=== PATIENT | female | born 1930 | race Caucasian/White ===

== ENCOUNTER 2016-05-22 09:36 | Emergency (ER) | payer MEDICARE, OTHER ==
[2016-05-22] MEDS ORDERED: Insulin Aspart 100 Units/ML 3 ML Pen SUBCUT ONE (10:21)
[2016-05-22] MEDS ORDERED: Insulin Detemir 100 Units/ML 3 ML Pen SUBCUT ONE (10:25)
[2016-05-22 10:55] VITALS: BP 173/72
--- NOTE | 2016-05-24 14:47 | CR ---
INDICATION: Suggestion of left CVA, [id number] activity. CHEST: A single AP view of the chest was obtained 05/22/2016. No comparisons were available. The heart is enlarged. The aorta is tortuous with calcification in the arch. Overlying EKG leads are noted. Findings suggesting COPD are noted. A definite active infiltrate or effusion was not identified. IMPRESSION: 1. No acute process. 2. COPD. 3. ASHD with cardiomegaly. MTDD
--- NOTE | 2016-05-25 15:29 | ER ---
DATE SEEN: 05/22/2016 CHIEF COMPLAINT: Weakness 0300 hours, left hand and right hand tremor, more notable on left hand at that time. At 0700 hours, unable to get out of bed, needed assistance, had to be on all fours, and eventually she walked to the bathroom. Presently, nurse called me stat, because she had new onset of tremor to right upper extremity, right hand. The patient has insulin-dependent diabetes who forgot to take her 40 units of Lantus last night. The patient normally takes 12 units of Humalog in the evening, but not during noon or a.m. PAST MEDICAL HISTORY: Stroke, myocardial infarction, paresis, weakness, numbness. CURRENT MEDICATIONS: 1. Aricept. 2. Aspirin. 3. Metoprolol succinate 25 mg daily. 4. Magnesium. 5. Lisinopril 40 mg daily. 6. Hydrochlorothiazide 25 mg daily. 7. Hydralazine 25 mg b.i.d. 8. Dorzolamide/timolol (Cosopt) 2%/0.5% ophthalmic 1 drop to each eye. 9. Simvastatin. 10.Amlodipine 10 mg daily. OTHER SIGNIFICANT HISTORY: The patient's glucose yesterday morning 0730 hours of 390. At 2300 hours yesterday 504. She forgot to take her Lantus 40 units. Today: 0900 hours 476; 1000 hours 399, point of care; 1010 hours 457 laboratory. The patient received 40 of Lantus at this time and 4 of Humalog. PAST MEDICAL HISTORY: Hypertension, diabetes, right total hip and left hip moderate arthritis status post previous x-ray last year. ALLERGIES: Septra, Demerol, hydrocortisone IV, ciprofloxacin. IMMUNIZATIONS: The patient had her last influenza shot in 2012. FAMILY HISTORY: Father of heart disease and diabetes at old age. Mother of diabetes and stroke. PHYSICAL EXAMINATION: GENERAL: Alert woman, in no acute distress, except for slightly anxious, as she noticed this tremor in the right hand. HEENT: PERRLA intact. EOMs normal. Hearing is good. Pharynx without abnormality. Gag in place. No fasciculation. No tongue biting. No tongue injury. NECK: No bruits in the neck. No thyromegaly. LUNGS: Clear to auscultation without rales, rhonchi, or wheezes. Heart: Regular rhythm. No murmur noted. No S3 or S4. ABDOMEN: Soft. No guarding. No abdominal discomfort. Increased abdominal girth noted. LOWER EXTREMITIES: Without edema. NEUROLOGIC: Deep tendon reflexes present, right upper and lower extremities. No asymmetry. Right forearm tremor that lasted 1 minute. Right forearm weakness lasted 4 minutes. Trace drift to right forearm. Trace pronator drift, right-sided. After 5 minutes, left and right upper body strength is normal. No asymmetry of the face. Cranial nerves II through XII intact. Plantar flexion normal. Dorsiflexion normal strength. I could pull the entire body down on the gurney with her dorsiflexion strength. Right leg and left leg, no drift noted. NIH stroke scale is negative. No tremor noted. No upgoing toes. No hyperreflexia. Speech is appropriate. Oriented x3. Stat CT, right 2 subarachnoid bleeds, right paramedian frontal lobe and right frontal lobe. Status discussed with Dr. Luke. A call placed at [address] Luke's call back 1059 hours. At 1135 hours, discussion with neuroradiology intervention, Dr. Ha. He requested we do CT angio. It is felt that test is not available for us now to get a good answer. Consequently, the patient will get this, when she is seen in the ED at [facility]. This would be treated also with an MR venogram to be performed at that time to rule out cavernous sinus thrombosis. The patient was transferred by ambulance. Ambulance left at approximately 1140 hours. LABORATORY FINDINGS: Hemoglobin 12.7, white count 9900. White count differential 78, lymphocytes 16. INR 1. D-dimer 1050. Sodium 130, potassium 4.5, chloride 97, CO2 of 25, BUN 30, creatinine 1.5, GFR 31, BUN to creatinine ratio of 18.8, glucose 457, [id number] glucose 399. Remainder of automated chemistry negative with troponin of 0.01. EKG, left ventricular hypertrophy, left anterior hemiblock. DIAGNOSES: 1. Two right subarachnoid bleeds. 2. Hypertension. 3. Status post total right hip arthroplasty. 4. Extensive left hip arthritis changes. 5. Insulin-dependent diabetes with hyperglycemia. Status discussed with Dr. Luke and Dr. Ha. The patient was transferred by ambulance to [facility]. /[id number] MONE/ROSALBA
== END 2016-05-22 11:30 ==
LOC: FB.ED 09:36
DX: I60.9 Nontraumatic subarachnoid hemorrhage, unspecified (principal); I10 Essential (primary) hypertension; Z96.641 Presence of right artificial hip joint; M16.12 Unilateral primary osteoarthritis, left hip; E11.65 Type 2 diabetes mellitus with hyperglycemia; Z79.4 Long term (current) use of insulin; Z79.82 Long term (current) use of aspirin; Z79.899 Other long term (current) drug therapy; I25.2 Old myocardial infarction; Z86.73 Personal history of transient ischemic attack (TIA), and cerebral infarction without residual deficits; Z88.6 Allergy status to analgesic agent; Z88.1 Allergy status to other antibiotic agents; Z88.8 Allergy status to other drugs, medicaments and biological substances
CPT/HCPCS: 36415; 70450; 71010; 80053; 82962; 84484; 85025; 85379; 85610; 93005; 96372; 99285; A9270; 99284

== ENCOUNTER 2016-07-27 11:37 | Emergency (ER) | payer MEDICARE, OTHER ==
[2016-07-27] MEDS ORDERED: Metoclopramide 10 MG/2 ML SDV IVPUSH ONE (11:48)
[2016-07-27] MEDS ORDERED: Lactated Ringers 1,000 ML IV ONE (11:48)
--- NOTE | 2016-07-27 11:55 | EDM.PDOC ---
ED HPI GENERAL MEDICAL PROBLEM - General Chief Complaint: Gastrointestinal Problem Stated Complaint: STOMACH PAIN Time Seen by Provider: 07/27/16 11:45 Source of Information: Reports: Patient, Old Records History Limitations: Reports: No Limitations - History of Present Illness INITIAL COMMENTS - FREE TEXT/NARRATIVE: 86 yo female presents with onset yesterday of vomiting, nausea, and anorexia. No diarrhea. No fever. No hematemesis. No known exposures. No hx of prior abdominal surgeries. Here with her . Onset Date: 07/26/16 Duration: Hour(s): Location: Reports: Abdomen Severity: Moderate Improves with: Reports: Rest, Other (not eating). Denies: Eating Worsens with: Reports: Eating Context: Reports: Other (unknown) Associated Symptoms: Reports: Loss of Appetite, Nausea/Vomiting, Other (weak and light-headed.). 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 (see below) (none) abdomen Pain Score (Numeric/FACES): 7 - Related Data Allergies Allergy/AdvReac Type Severity Reaction Status Date / Time ciprofloxacin [From Cipro] Allergy Nausea and Verified 07/27/16 12:11 Vomiting ciprofloxacin HCl Allergy Nausea and Verified 07/27/16 12:11 [From Cipro] Vomiting hydrocortisone Allergy Nausea and Verified 07/27/16 12:11 [From Hydrocortone] Vomiting hydrocortisone acetate Allergy Nausea and Verified 07/27/16 12:11 [From Hydrocortone] Vomiting hydrocortisone sod phosphate Allergy Nausea and Verified 07/27/16 12:11 [From Hydrocortone] Vomiting meperidine HCl [From Demerol] Allergy Nausea and Verified 07/27/16 12:11 Vomiting sulfamethoxazole Allergy Nausea and Verified 07/27/16 12:11 [From Septra] Vomiting trimethoprim [From Septra] Allergy Nausea and Verified 07/27/16 12:11 Vomiting Home Meds: Home Meds Dorzolamide/Timolol [Cosopt 2%-0.5% Ophth Soln] 1 drop EYEBOTH Q12H 12/22/12 [ History] Simvastatin [Zocor] 10 mg PO BEDTIME 12/22/12 [History] amLODIPine [Norvasc] 10 mg PO DAILY 12/22/12 [History] Aspirin 81 mg PO BEDTIME 05/22/16 [History] Donepezil [Aricept] 10 mg PO BEDTIME 05/22/16 [History] Hydrochlorothiazide 25 mg PO DAILY 05/22/16 [History] Lisinopril [Prinivil] 40 mg PO DAILY 05/22/16 [History] Magnesium Chloride [Mag-64] 1 tab PO DAILY 05/22/16 [History] Metoprolol Succinate [Toprol XL] 25 mg PO DAILY 05/22/16 [History] hydrALAZINE [Apresoline] 25 mg PO BID 05/22/16 [History] Cephalexin 500 mg PO Q8HR #15 capsule 07/27/16 [Rx] Fluticasone Propionate [Flonase] 2 sprays NASBOTH DAILY 07/27/16 [History] Insulin Glargine,Hum.Rec.Anlog [Lantus Solostar] 36 unit SQ BEDTIME 07/27/16 [ History] Insulin Lispro [HumaLOG] 5 unit SQ ACBREAKFAST 07/27/16 [History] Insulin Lispro [HumaLOG] 5 unit SQ ACLUNCH 07/27/16 [History] Insulin Lispro [HumaLOG] 8 unit SQ ACDINNER 07/27/16 [History] Past Medical History Cardiovascular History: Reports: Hypertension 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 Denies: Fever, Diaphoresis HEENT: Reports: No Symptoms Respiratory: Reports: No Symptoms Cardiovascular: Reports: Lightheadedness Endocrine: Reports: No Symptoms GI/Abdominal: Reports: Abdominal Pain (minimal ), Anorexia, Decreased Appetite, Nausea, Vomiting. Denies: Black Stool, Bloody Stool, Constipation, Diarrhea, Distension, Flatus, Hematemesis, Hematochezia, Stool Incontinence : Reports: No Symptoms Musculoskeletal: Reports: No Symptoms Skin: Reports: No Symptoms Neurological: Reports: No Symptoms Psychiatric: Reports: No Symptoms Hematologic/Lymphatic: Reports: No Symptoms ED EXAM, GI/ABD - Physical Exam Exam: See Below Exam Limited By: No Limitations General Appearance: Alert, WD/WN, No Apparent Distress Eyes: Bilateral: Normal Appearance, EOMI Ears: Normal External Exam, Normal Canal, Hearing Grossly Normal Nose: Normal Inspection, Normal Mucosa, No Blood Throat/Mouth: Normal Inspection, Normal Lips, Normal Gums, Normal Oropharynx, Normal Voice, No Airway Compromise Head: Atraumatic, Normocephalic Neck: Normal Inspection, Supple Respiratory/Chest: No Respiratory Distress, Lungs Clear, Normal Breath Sounds, No Accessory Muscle Use Cardiovascular: Regular Rate, Rhythm, No Edema GI/Abdominal: Normal Bowel Sounds, Soft, Non-Tender, No Distention Back Exam: Normal Inspection. No: CVA Tenderness (R), CVA Tenderness (L) Extremities: Normal Inspection, Normal Range of Motion, Non-Tender, No Pedal Edema Neurological: Alert, Oriented, CN II-XII Intact, Normal Cognition, No Motor/ Sensory Deficits Psychiatric: Normal Affect, Normal Mood Skin Exam: Warm, Dry, Intact, Normal Color, No Rash Lymphatic: No Adenopathy Course - Vital Signs Text/Narrative:: LR 1000 ml IV, Reglan 10 mg IV, Keflex 500 mg po Last Recorded V/S: Last Vital Signs Temp 37.1 C 07/27/16 11:37 Pulse 82 07/27/16 11:37 Resp 16 07/27/16 11:37 BP 137/68 07/27/16 11:37 Pulse Ox 97 07/27/16 11:37 - Orders/Labs/Meds Orders: Active Orders 24 hr Category Date Time Status CULTURE URINE [RM] Stat Lab 07/27/16 11:55 Received Labs: Laboratory Tests 07/27/16 07/27/16 07/27/16 Range/Units 11:55 12:05 12:05 WBC 7.4 (4.5-12.0) X10-3/uL RBC 4.42 (3.23-5.20) x10(6)uL Hgb 12.6 (11.5-15.5) g/dL Hct 37.4 (30.0-51.3) % MCV 84.4 (80-96) fL MCH 28.4 (27.7-33.6) pg MCHC 33.7 (32.2-35.4) g/dL RDW 13.5 (11.5-15.5) % Plt Count 209 (125-369) X10(3)uL Sodium 133 L (135-145) mmol/L Potassium 4.3 (3.5-5.3) mmol/L Chloride 99 L (100-110) mmol/L Carbon Dioxide 25 (23-29) mmol/L BUN 23 (8-23) mg/dL Creatinine 1.5 H (0.6-1.3) mg/dL Est Cr Clr Drug Dosing TNP Estimated GFR (MDRD) 33 L (>60) BUN/Creatinine Ratio 15.3 (9-20) Glucose 214 H D (80-116) mg/dL Calcium 9.1 (8.6-10.2) mg/dL Urine Color Yellow (YELLOW) Urine Appearance Cloudy (CLEAR) Urine pH 5.0 (5.0-6.5) Ur Specific [place] 1.015 (1.010-1.025) Urine Protein 30 H (NEGATIVE) mg/dL Urine Glucose (UA) Normal (NEGATIVE) mg/dL Urine Ketones Negative (NEGATIVE) mg/dL Urine Occult Blood Trace (NEGATIVE) Urine Nitrite Positive H (NEGATIVE) Urine Bilirubin Negative (NEGATIVE) Urine Urobilinogen Normal (NEGATIVE) mg/dL Ur Leukocyte Esterase Large H (NEGATIVE) Urine WBC Packed H (0) Meds: Medications Discontinued Medications Generic Name Dose Route Start Last Admin Trade Name Freq PRN Reason Stop Dose Admin Cephalexin 500 mg 07/27/16 12:34 07/27/16 12:48 Keflex PO 07/27/16 12:35 500 mg ONETIME ONE Administration Lactated Ringer's 1,000 mls @ 1,000 mls/hr 07/27/16 11:48 07/27/16 12:18 Ringers, Lactated IV 07/27/16 12:47 1,000 mls/hr BOLUS ONE Administration Metoclopramide HCl 10 mg 07/27/16 11:48 07/27/16 12:26 Reglan IVPUSH 07/27/16 11:49 10 mg ONETIME ONE Administration Departure - Departure Time of Disposition: 13:20 Disposition: Home, Self-Care 01 Condition: good Clinical Impression: Nausea and vomiting Qualifiers: Vomiting type: unspecified Vomiting Intractability: non-intractable Qualified Code(s): R11.2 - Nausea with vomiting, unspecified UTI (urinary tract infection) Qualifiers: Urinary tract infection type: acute cystitis Hematuria presence: without hematuria Qualified Code(s): N30.00 - Acute cystitis without hematuria Hyperglycemia due to type 2 diabetes mellitus Qualifiers: Diabetes mellitus chcf insulin use: with chcf use Qualified Code(s): E11.65 - Type 2 diabetes mellitus with hyperglycemia; 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
[2016-07-27] MEDS ORDERED: Cephalexin 500 MG Cap PO ONE (12:34)
[2016-07-27 13:33] VITALS: BP 138/54
== END 2016-07-27 13:33 | disposition home or self-care (01) ==
LOC: FB.ED 11:37
DX: N30.00 Acute cystitis without hematuria (principal); E11.65 Type 2 diabetes mellitus with hyperglycemia; I10 Essential (primary) hypertension; Z87.891 Personal history of nicotine dependence; Z88.1 Allergy status to other antibiotic agents; Z88.5 Allergy status to narcotic agent; Z88.2 Allergy status to sulfonamides; Z88.6 Allergy status to analgesic agent; Z79.4 Long term (current) use of insulin; Z79.82 Long term (current) use of aspirin; Z79.899 Other long term (current) drug therapy
CPT/HCPCS: 36415; 80048; 81001; 85027; 87086; 87088; 87186; 96361; 96374; 99284; A9270; J2765; J7120

== ENCOUNTER 2018-05-17 08:17 | Observation (INO) | payer MEDICARE, BC ==
[2018-05-17] MEDS ORDERED: Acetaminophen 325 MG Tab PO ONE (08:48)
--- NOTE | 2018-05-17 08:56 | EDM.PDOC ---
ED HPI GENERAL MEDICAL PROBLEM - General Chief Complaint: General Stated Complaint: WEAKNESS Time Seen by Provider: 05/17/18 08:17 Source of Information: Reports: Patient, Family History Limitations: Reports: Physical Impairment - History of Present Illness INITIAL COMMENTS - FREE TEXT/NARRATIVE: 88 y.o.w.renny came with her family to the ed after she sled of the bed and fell onto the floor, unable to get up. Her was not able to get her up, family was called in. Pt arrived with family, PC BP 138/70 Pulse 101, temp 38.8 RR 18 Pulse ox 96% on RA Onset Date: 05/17/18 Onset Time: 06:00 Duration: Hour(s):, Constant Location: Reports: Generalized Quality: Reports: Dull Severity: Moderate Improves with: Reports: Rest Worsens with: Reports: Movement Context: Reports: Other Associated Symptoms: Reports: No Other Symptoms - Related Data Allergies Allergy/AdvReac Type Severity Reaction Status Date / Time ciprofloxacin [From Cipro] Allergy Nausea and Verified 07/27/16 12:11 Vomiting ciprofloxacin HCl Allergy Nausea and Verified 07/27/16 12:11 [From Cipro] Vomiting hydrocodone Allergy Nausea and Verified 05/17/18 08:38 Vomiting hydrocortisone sod phosphate Allergy Nausea and Verified 07/27/16 12:11 [From Hydrocortone] Vomiting meperidine HCl [From Demerol] Allergy Nausea and Verified 07/27/16 12:11 Vomiting sulfamethoxazole Allergy Nausea and Verified 07/27/16 12:11 [From Septra] Vomiting trimethoprim [From Septra] Allergy Nausea and Verified 07/27/16 12:11 Vomiting Home Meds: Home Meds Simvastatin [Zocor] 10 mg PO BEDTIME 12/22/12 [History] amLODIPine [Norvasc] 10 mg PO DAILY 12/22/12 [History] Donepezil [Aricept] 10 mg PO BEDTIME 05/22/16 [History] Hydrochlorothiazide 25 mg PO DAILY 05/22/16 [History] Lisinopril [Prinivil] 40 mg PO DAILY 05/22/16 [History] Metoprolol Succinate [Toprol XL] 25 mg PO DAILY 05/22/16 [History] hydrALAZINE [Apresoline] 50 mg PO BID 05/22/16 [History] Insulin Lispro [HumaLOG] 10 unit SQ ACBREAKFAST 07/27/16 [History] Insulin Lispro [HumaLOG] 15 unit SQ ACLUNCH 07/27/16 [History] Insulin Lispro [HumaLOG] 30 unit SQ ACDINNER 07/27/16 [History] Famotidine 20 mg PO DAILY 05/17/18 [History] Insulin Degludec [Tresiba Flextouch U-200] 55 unit SQ BEDTIME 05/17/18 [History] Magnesium Chloride [Slow-Mag] 71.5 mg PO DAILY 05/17/18 [History] levETIRAcetam [Keppra] 750 mg PO BID 05/17/18 [History] Past Medical History HEENT History: Reports: Hard of Hearing, Impaired Vision, Other (See Below) Other HEENT History: lesley hearing aids Cardiovascular History: Reports: Hypertension 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: Neurological History: Reports: CVA, Other (See Below) Other Neuro History: Is on donazepril Endocrine/Metabolic History: Reports: Diabetes, Type II, IDDM - Past Surgical History Cardiovascular Surgical History: Reports: Other (See Below) Other Cardiovascular Surgeries/Procedures: loop implant Social & Family History - Family History Family Medical History: Noncontributory - Caffeine Use Caffeine Use: Reports: Coffee, Soda ED ROS GENERAL - Review of Systems Review Of Systems: See Below Constitutional: Reports: No Symptoms HEENT: Reports: No Symptoms Respiratory: Reports: No Symptoms Cardiovascular: Reports: No Symptoms Endocrine: Reports: No Symptoms GI/Abdominal: Reports: No Symptoms : Reports: Dysuria, Frequency, Hematuria Musculoskeletal: Reports: Other (wea) Skin: Reports: No Symptoms Neurological: Reports: Weakness Psychiatric: Reports: No Symptoms Hematologic/Lymphatic: Reports: No Symptoms Immunologic: Reports: No Symptoms ED EXAM, GENERAL - Physical Exam Exam: See Below Exam Limited By: Physical Impairment General Appearance: Alert, WD/WN, Mild Distress Eye Exam: Bilateral Eye: Nystagmus (bilateral) Ears: Normal External Exam Ear Exam: Bilateral Ear: Auricle Normal Nose: Normal Inspection Throat/Mouth: Normal Inspection, Normal Teeth Head: Atraumatic Neck: Normal Inspection Respiratory/Chest: No Respiratory Distress Cardiovascular: Normal Peripheral Pulses Peripheral Pulses: 2+: Carotid (R) (Female) Exam: Deferred Rectal (Female) Exam: Deferred Back Exam: Normal Inspection, Full Range of Motion Extremities: Normal Inspection, Normal Range of Motion, Non-Tender, No Pedal Edema Neurological: Alert, Oriented, CN II-XII Intact, Other (too weak to ambulate, no focal weakness) Psychiatric: Normal Affect, Normal Mood Skin Exam: Warm, Dry, Intact, Normal Color Lymphatic: No Adenopathy EKG INTERPRETATION EKG Date: 05/17/18 Time: 10:20 Rhythm: NSR Rate (Beats/Min): 89 [place]: Normal P-Wave: Present QRS: Normal ST-T: Normal QT: Normal Comparison: NA - No Prior EKG Course - Vital Signs Text/Narrative:: 88 y.o.w.f came with her family to the ed after she sled of the bed and fell onto the floor, unable to get up. Her was not able to get her up, family was called in. Pt arrived with family, PC BP 138/70 Pulse 101, temp 38.8 RR 18 Pulse ox 96% on RA PE: WNWD W F, with bilat nystagmus, too weak to ambulate. Imaging: CXR: NAD Labs: UA pos for UTI with hematuria, CBC nl, Neut 84%, Na 134, Cr 1.6 BUN GFR 31, BUN/Cr ration elevated Lactic acid 1.8 (nl) Impression: CRI, Hyponatremia, dehydration, UTI with hematuria Tx: NS, Rocepgine Reexam: Improved., still not able to ambulate due to weakness 10.15 am Consultation: Dr. Lutz, Hospitalist: Accepted the patient for admission to OBD Plan: Admit for obs.Family agreed. Last Recorded V/S: Last Vital Signs Temp 37.7 C 05/17/18 11:00 Pulse 87 05/17/18 11:00 Resp 18 05/17/18 11:00 BP 136/65 05/17/18 11:00 Pulse Ox 96 05/17/18 11:20 - Orders/Labs/Meds Orders: Active Orders 24 hr Category Date Time Status EKG Documentation Completion [RC] ASDIRECTED Care 05/17/18 09:10 Active EKG 12 Lead [EK] Routine Ther 05/17/18 09:10 Ordered Medication Orders Acetaminophen (Tylenol) 650 mg PO Q4H PRN PRN Reason: Pain (Mild 1-3)/fever Amlodipine Besylate (Norvasc) 10 mg PO DAILY JOSE LUIS Aztreonam (Azactam) 1 gm IVPUSH Q12H JOSE LUIS Last Admin: 05/17/18 13:18 Dose: 1 gm Donepezil HCl (Aricept) 10 mg PO BEDTIME [facility] Sodium Chloride (Normal Saline) 1,000 mls @ 125 mls/hr IV ASDIRECTED [facility] Last Admin: 05/17/18 11:26 Dose: 125 mls/hr Insulin Aspart (Novolog) 0 unit SUBCUT TIDMEALS [facility]; Protocol Last Admin: 05/17/18 13:14 Dose: 3 units Insulin Degludec (Tresiba Flextouch U-200) 55 unit SQ BEDTIME [facility] Lisinopril (Prinivil) 40 mg PO DAILY [facility] Metoprolol Succinate (Toprol Xl) 25 mg PO DAILY [facility] Levetiracetam 750mg 0 each PO BID [facility] Labs: Laboratory Tests 05/17/18 05/17/18 05/17/18 Range/Units 08:30 08:30 08:30 WBC 9.2 (4.5-12.0) X10-3/uL RBC 4.79 (3.23-5.20) x10(6)uL Hgb 13.4 (11.5-15.5) g/dL Hct 40.8 (30.0-51.3) % MCV 85.2 (80-96) fL MCH 28.1 (27.7-33.6) pg MCHC 32.9 (32.2-35.4) g/dL RDW 12.9 (11.5-15.5) % Plt Count 174 (125-369) X10(3)uL MPV 9.3 (7.4-10.4) fL Add Manual Diff Yes Neutrophils % (Manual) 84 H (46-82) % Lymphocytes % (Manual) 8 L (13-37) % Monocytes % (Manual) 8 (4-12) % PT 9.9 (8.7-11.1) INR 1.02 (0.89-1.13) Sodium 134 L (135-145) mmol/L Potassium 4.3 (3.5-5.3) mmol/L Chloride 96 L (100-110) mmol/L Carbon Dioxide 25 (21-32) mmol/L BUN 25 H (7-18) mg/dL Creatinine 1.6 H (0.55-1.02) mg/dL Est Cr Clr Drug Dosing 21.79 mL/min Estimated GFR (MDRD) 31 L (>60) BUN/Creatinine Ratio 15.6 (9-20) Glucose 313 H (80-116) mg/dL Lactic Acid (0.4-2.2) mmol/L Calcium 8.6 (8.6-10.2) mg/dL Troponin I (<0.017-0.056) ng/mL Urine Color (YELLOW) Urine Appearance (CLEAR) Urine pH (5.0-6.5) Ur Specific [place] (1.010-1.025) Urine Protein (NEGATIVE) mg/dL Urine Glucose (UA) (NORMAL) mg/dL Urine Ketones (NEGATIVE) mg/dL Urine Occult Blood (NEGATIVE) Urine Nitrite (NEGATIVE) Urine Bilirubin (NEGATIVE) Urine Urobilinogen (NEGATIVE) mg/dL Ur Leukocyte Esterase (NEGATIVE) Urine RBC (0-5) Urine WBC (0-5) Ur Squamous Epith Cells (NS,R,O) Urine Bacteria (NS) 05/17/18 05/17/18 05/17/18 Range/Units 08:30 08:30 09:00 WBC (4.5-12.0) X10-3/uL RBC (3.23-5.20) x10(6)uL Hgb (11.5-15.5) g/dL Hct (30.0-51.3) % MCV (80-96) fL MCH (27.7-33.6) pg MCHC (32.2-35.4) g/dL RDW (11.5-15.5) % Plt Count (125-369) X10(3)uL MPV (7.4-10.4) fL Add Manual Diff Neutrophils % (Manual) (46-82) % Lymphocytes % (Manual) (13-37) % Monocytes % (Manual) (4-12) % PT (8.7-11.1) INR (0.89-1.13) Sodium (135-145) mmol/L Potassium (3.5-5.3) mmol/L Chloride (100-110) mmol/L Carbon Dioxide (21-32) mmol/L BUN (7-18) mg/dL Creatinine (0.55-1.02) mg/dL Est Cr Clr Drug Dosing mL/min Estimated GFR (MDRD) (>60) BUN/Creatinine Ratio (9-20) Glucose (80-116) mg/dL Lactic Acid 1.8 (0.4-2.2) mmol/L Calcium (8.6-10.2) mg/dL Troponin I < 0.017 L (<0.017-0.056) ng/mL Urine Color Yellow (YELLOW) Urine Appearance Cloudy (CLEAR) Urine pH 5.0 (5.0-6.5) Ur Specific [place] 1.020 (1.010-1.025) Urine Protein 500 H (NEGATIVE) mg/dL Urine Glucose (UA) 50 H (NORMAL) mg/dL Urine Ketones Negative (NEGATIVE) mg/dL Urine Occult Blood Large H (NEGATIVE) Urine Nitrite Negative (NEGATIVE) Urine Bilirubin Negative (NEGATIVE) Urine Urobilinogen Normal (NEGATIVE) mg/dL Ur Leukocyte Esterase Large H (NEGATIVE) Urine RBC Packed H (0-5) Urine WBC Packed H (0-5) Ur Squamous Epith Cells Few H (NS,R,O) Urine Bacteria Many H (NS) Meds: Medications Generic Name Dose Route Start Last Admin Trade Name Freq PRN Reason Stop Dose Admin Acetaminophen 650 mg 05/17/18 10:33 Tylenol PO Q4H PRN Pain (Mild 1-3)/fever Amlodipine Besylate 10 mg 05/18/18 09:00 Norvasc PO DAILY [facility] Aztreonam 1 gm 05/17/18 11:00 05/17/18 13:18 Azactam IVPUSH 1 gm Q12H JOSE LUIS Administration Donepezil HCl 10 mg 05/17/18 21:00 Aricept PO BEDTIME [facility] Sodium Chloride 1,000 mls @ 125 mls/hr 05/17/18 10:45 05/17/18 11:26 Normal Saline IV 125 mls/hr ASDIRECTED JOSE LUIS Administration Insulin Aspart 0 unit 05/17/18 12:00 05/17/18 13:14 Novolog SUBCUT 3 units TIDMEALS [facility] Administration Protocol Insulin Degludec 55 unit 05/17/18 21:00 Tresiba Flextouch U-200 SQ BEDTIME [facility] Lisinopril 40 mg 05/18/18 09:00 Prinivil PO DAILY [facility] Metoprolol Succinate 25 mg 05/18/18 09:00 Toprol Xl PO DAILY JOSE LUIS Levetiracetam 750mg 0 each 05/17/18 21:00 PO BID JOSE LUIS Discontinued Medications Generic Name Dose Route Start Last Admin Trade Name Bob PRN Reason Stop Dose Admin Acetaminophen 650 mg 05/17/18 08:48 05/17/18 08:56 Tylenol PO 05/17/18 08:49 650 mg NOW ONE Administration Ceftriaxone Sodium 1 gm 05/17/18 10:06 05/17/18 10:53 Rocephin IM 05/17/18 10:07 1 gm ONETIME ONE Administration Sodium Chloride 500 mls @ 999 mls/hr 05/17/18 10:09 05/17/18 10:52 Normal Saline IV 05/17/18 10:39 999 mls/hr .BOLUS ONE Administration Departure - Departure Time of Disposition: 13:00 Disposition: Refer to Observation Condition: Fair Clinical Impression: Weakness UTI (urinary tract infection) Qualifiers: Urinary tract infection type: acute cystitis Hematuria presence: without hematuria Qualified Code(s): N30.00 - Acute cystitis without hematuria - Discharge Information - My Orders Last 24 Hours: My Active Orders 05/17/18 09:10 EKG Documentation Completion [RC] ASDIRECTED EKG 12 Lead [EK] Routine - Assessment/Plan Last 24 Hours: My Active Orders 05/17/18 09:10 EKG Documentation Completion [RC] ASDIRECTED EKG 12 Lead [EK] Routine
[2018-05-17] MEDS ORDERED: Nitrofurantoin Macrocrystal 50 MG Cap PO ONE (10:05)
[2018-05-17] MEDS ORDERED: cefTRIAXone 1 GM Vial IM ONE (10:06)
[2018-05-17] MEDS ORDERED: Sodium Chloride 0.9% 500 ML IV ONE (10:09)
[2018-05-17] MEDS ORDERED: Acetaminophen 325 MG Tab PO PRN (10:33)
--- NOTE | 2018-05-17 10:36 | CR ---
INDICATION: Fever. CHEST TWO VIEWS: PA and lateral views of the chest were obtained 05/17/18 and compared with 05/22/16. The heart appeared enlarged. An electronic device is noted overlying the heart anteriorly, not present on the previous study. No specific chamber enlargement is noted. The aorta is tortuous with calcification in the arch and distending portion. Somewhat diminished bone density raises question of osteoporosis. Minimal dextroconcave scoliosis lower thoracic spine is noted. Flatten diaphragm leaves, prominent AP diameter and hyperaeration suggests COPD. Some very minimal patchy infiltrate maybe present at the lung bases with heavy markings in those areas--minimal pneumonia cannot be excluded. However, no consolidating pneumonia, or effusion of significant size, could be identified. IMPRESSION: 1. Cannot exclude minimal patchy pneumonia at the lung bases. 2. COPD. 3. ASHD with mild cardiomegaly. 4. Diminished bone density suggesting osteoporosis with minimal dextroconcave scoliosis lower thoracic spine. MTDD
[2018-05-17] MEDS: Sodium Chloride 0.9% 1,000 ML IV SCH ×2 (11:26→19:36)
[2018-05-17] MEDS: Insulin Aspart 100 Units/ML 3 ML Pen SUBCUT SCH ×2 (13:14→17:36)
--- NOTE | 2018-05-17 14:02 | HP ---
ADMISSION DATE: 05/17/2018 History is from the patient's and daughter. The patient is a poor historian with dementia. CHIEF COMPLAINT: Fell out of bed and weakness. HISTORY OF PRESENT ILLNESS: Mrs. Gonzalez is an 88-year-old woman from [place], [place] with a history of dementia, type 2 diabetes with kidney disease, hypertension, history of CVA, seizure disorder, lymphoma, and hyperlipidemia. She was brought into the emergency room by her family today. She apparently fell out of bed this morning and had leg weakness and could not stand or walk. This was unusual as a few days ago, she was able to be up walking without difficulty. According to the patient and her , she has been weak somewhat starting yesterday. The patient denies having any pain, injuries, any fever, chills, or symptoms of infection. No cough, dyspnea, palpitations, etc. She was evaluated by Dr. Good in the emergency room and found to have weakness, fever to 101.9, tachycardia, and a significant pyuria. For this reason, she is admitted to observation care for IV fluid and IV antibiotic therapy. PAST MEDICAL HISTORY: She has had type 2 diabetes for many years, on high doses of insulin. She has diabetic nephropathy. She has chronic essential hypertension. She has a history of a stroke in 2019. She has had lymphoma, hypertension, hyperlipidemia, and dementia. She also has a permanent pacemaker. MEDICATIONS: 1. Simvastatin 10 mg daily. 2. Toprol-XL 25 mg daily. 3. Magnesium 64 mg daily. 4. Lisinopril 40 mg daily. 5. Amlodipine 5 mg daily. 6. Hydralazine 10 mg t.i.d. 7. Aricept 10 mg daily. 8. Xalatan eye drops both eyes b.i.d. 9. Hydrochlorothiazide 25 mg daily. 10.Cosopt eye drops at bedtime. 11.Lantus 62 units at bedtime. ALLERGIES: Cipro caused nausea and vomiting. Hydrocodone caused nausea and vomiting. Sulfa, Demerol, and hydrocortisone all caused nausea and vomiting. HABITS: Nonsmoker. Nondrinker. FAMILY AND SOCIAL HISTORY: The patient lives with her in [place]. She is accompanied by him and her 2 children today. REVIEW OF SYSTEMS: Not reliably obtainable from the patient, but negative for noted fever. She denies headaches or other pain. No cough, dyspnea, or URI symptoms. She denies recent infection. No palpitations, abdominal pain, diarrhea, constipation, hematochezia, or melena. No UTI symptoms. No joint inflammation or swelling. She does report general weakness. PHYSICAL EXAMINATION: GENERAL: She is alert, but slow to speak and a poor historian. VITAL SIGNS: Blood pressure 138/70, pulse 101 and regular, respirations 20, O2 saturation 95% on room air, temp 101.9. Weight 164 pounds stated. SKIN: Anicteric, warm and dry. No rash or trauma is noted. HEENT: Shows her mouth to be dry. LUNGS: Clear to the bases. BACK: Straight and nontender. HEART: Regular without murmur or gallop heard. ABDOMEN: Normal bowel sounds. She does report mild tenderness to deep palpation in the right upper quadrant, minimal lower tenderness. PELVIC AND RECTAL: Not done. EXTREMITIES: Warm and well perfused. There is no edema. Strength appears symmetric. She is assisted to a stand by 2 people from her wheelchair and walked a few steps with a broad-based gait. LABORATORY DATA: White count 9200, hemoglobin 13.4, 84 segs, 8 lymphs, 8 monos. Sodium 134, potassium 4.3, BUN 25, creatinine 1.6. Urinalysis, large blood, large leukocyte esterase, packed field of white cells and red cells. ASSESSMENT: An 88-year-old woman with: 1. Acute urinary tract infection, suspicious for pyelonephritis. 2. Dementia. 3. Insulin-dependent type 2 diabetes. 4. Diabetic kidney disease stage 4. 5. Chronic essential hypertension. 6. Hyperlipidemia. 7. Generalized weakness and debility. 8. History of stroke with seizure disorder. 9. History of lymphoma, on no current treatment. PLAN: She is admitted to observation care, will be provided with IV fluid overnight. She is given a dose of Rocephin IV in the ER. We will monitor her vital signs, repeat the Rocephin in the a.m., and also start her on Azactam 1 g every 12 hours IV. Plan to discharge home within 24 hours if stable. We will also continue palliative care measures for her underlying dementia and general debility. /[id number] DARIN/ROSALBA
[2018-05-17] MEDS: LEVETIRACETAM 750MG PO SCH (20:16)
[2018-05-17] MEDS ORDERED: Insulin Degludec 200 UNIT/ML PEN SQ SCH (21:00)
[2018-05-17] MEDS ORDERED: Donepezil 10 MG Tab *PTOM PO SCH (21:00)
[2018-05-18] MEDS: Sodium Chloride 0.9% 1,000 ML IV SCH (03:15)
[2018-05-18] MEDS: LEVETIRACETAM 750MG PO SCH (08:19)
[2018-05-18] MEDS: Insulin Aspart 100 Units/ML 3 ML Pen SUBCUT SCH ×2 (08:23→11:48)
[2018-05-18 08:27] VITALS: BP 155/86
[2018-05-18] MEDS ORDERED: Metoprolol Succinate 25 MG Tab.ER *PTOM PO SCH (09:00)
[2018-05-18] MEDS ORDERED: Lisinopril 40 MG Tab *PTOM PO SCH (09:00)
[2018-05-18] MEDS ORDERED: amLODIPine 10 MG Tab *PTOM PO SCH (09:00)
[2018-05-18] MEDS: Sodium Chloride 0.9% 10 ML Syringe FLUSH PRN ×2 (11:20→12:03)
[2018-05-18] MEDS ORDERED: cefTRIAXone 1 GM in Sodium Chloride 0.9% 50 ML IV ONE (12:00)
[2018-05-18] MEDS ORDERED: cefTRIAXone 1 GM Vial IVPUSH ONE (12:00)
--- NOTE | 2018-05-18 14:29 | DISCH ---
DISCHARGE DATE: 05/18/2018 SUMMARY: Lucila is an 88-year-old woman with dementia, type 2 diabetes, hypertension, and chronic kidney disease. She was admitted with evidence of urinary tract infection and weakness. She did not present with sepsis. The patient was given a dose of Rocephin in the emergency room, admitted overnight for observation. She was provided IV normal saline for rehydration and laboratory showed improvement in BUN and creatinine from 25 and 1.6 to 22 and 1.3 overnight. She is given an additional gram of Rocephin today and a gram of Azactam. She will be discharged to home in improved condition on cefdinir 300 mg daily for 5 days along with her other medications as follows: To receive insulin 54 to 56 units at bedtime; Aricept 10 mg daily; amlodipine 10 mg daily; simvastatin 10 mg daily; Slow-Mag 71.5 mg daily; Humalog 10 units at breakfast, 15 units at lunch, and 30 units at supper; hydralazine 50 mg b.i.d.; metoprolol 25 mg daily; lisinopril 40 mg daily; Keppra 750 mg b.i.d.; and Ceftin. She is asked to discontinue her hydrochlorothiazide. She is asked to see Dr. aBig in his office in 2 weeks with a followup urinalysis and a renal panel. /[id number] DARIN/ROSALBA
[2018-05-19] MEDS ORDERED: Cefdinir 300 MG Cap PO SCH (09:00)
== END 2018-05-18 12:15 | disposition home or self-care (01) ==
LOC: FB.ED 08:17 → FB.MS 10:31
PROVIDERS: ADMIT Family Medicine; ATTEND Family Medicine
DX: N39.0 Urinary tract infection, site not specified (principal); R53.1 Weakness; R53.81 Other malaise; I12.9 Hypertensive chronic kidney disease with stage 1 through stage 4 chronic kidney disease, or unspecified chronic kidney disease; E11.22 Type 2 diabetes mellitus with diabetic chronic kidney disease; N18.4 Chronic kidney disease, stage 4 (severe); E11.21 Type 2 diabetes mellitus with diabetic nephropathy; F03.90 Unspecified dementia, unspecified severity, without behavioral disturbance, psychotic disturbance, mood disturbance, and anxiety; E78.5 Hyperlipidemia, unspecified; I25.10 Atherosclerotic heart disease of native coronary artery without angina pectoris; J44.9 Chronic obstructive pulmonary disease, unspecified; Z86.73 Personal history of transient ischemic attack (TIA), and cerebral infarction without residual deficits; Z85.72 Personal history of non-Hodgkin lymphomas; Z79.4 Long term (current) use of insulin; Z79.899 Other long term (current) drug therapy; Z95.0 Presence of cardiac pacemaker; Z88.5 Allergy status to narcotic agent; Z88.1 Allergy status to other antibiotic agents; Z88.2 Allergy status to sulfonamides; W06.XXXA Fall from bed, initial encounter
CPT/HCPCS: 36415; 71046; 80048; 81001; 82962; 83605; 84484; 85025; 85610; 87040; 87086; 87088; 87186; 93005; 96374; 99285; A9270; J0696; J1815; J7030; J7040; S0073; 96361; 96372; 96376; G0378

== ENCOUNTER 2018-12-09 19:23 | Observation (INO) | payer MEDICARE, BC ==
--- NOTE | 2018-12-09 19:35 | EDM.PDOC ---
ED HPI GENERAL MEDICAL PROBLEM - General Chief Complaint: Neuro Symptoms/Deficits Stated Complaint: stroke Time Seen by Provider: 12/09/18 19:25 Source of Information: Reports: Patient, Family History Limitations: Reports: No Limitations - History of Present Illness INITIAL COMMENTS - FREE TEXT/NARRATIVE: Lucila comes in accompanied by her (,daughter) .She complains of stroke like symptoms.She endorses a two day h/o left sided weakness,right sided facial palsy,drooling and speech disturbance.Insidious onset. She was admitted in May with similar symptoms. She has a history of recurrent urinary tract infection, CVA, hypertension, dementia, and type 2 diabetes that all stable. At home she has been ambulatory. - Related Data Allergies Allergy/AdvReac Type Severity Reaction Status Date / Time ciprofloxacin [From Cipro] Allergy Nausea and Verified 12/09/18 21:25 Vomiting ciprofloxacin HCl Allergy Nausea and Verified 12/09/18 21:25 [From Cipro] Vomiting hydrocodone Allergy Nausea and Verified 12/09/18 21:25 Vomiting hydrocortisone sod phosphate Allergy Nausea and Verified 12/09/18 21:25 [From Hydrocortone] Vomiting meperidine HCl [From Demerol] Allergy Nausea and Verified 12/09/18 21:25 Vomiting sulfamethoxazole Allergy Nausea and Verified 12/09/18 21:25 [From Septra] Vomiting trimethoprim [From Septra] Allergy Nausea and Verified 12/09/18 21:25 Vomiting Home Meds: Home Meds Simvastatin [Zocor] 10 mg PO BEDTIME 12/22/12 [History] amLODIPine [Norvasc] 10 mg PO DAILY 12/22/12 [History] Donepezil [Aricept] 10 mg PO BEDTIME 05/22/16 [History] Lisinopril [Prinivil] 40 mg PO DAILY 05/22/16 [History] Metoprolol Succinate [Toprol XL] 25 mg PO DAILY 05/22/16 [History] hydrALAZINE [Apresoline] 50 mg PO BID 05/22/16 [History] Insulin Lispro [HumaLOG] 10 unit SQ ACBREAKFAST 07/27/16 [History] Insulin Lispro [HumaLOG] 15 unit SQ ACLUNCH 07/27/16 [History] Insulin Lispro [HumaLOG] 35 unit SQ ACDINNER 07/27/16 [History] Insulin Degludec [Tresiba Flextouch U-200] 54 unit SQ BEDTIME 05/17/18 [History] Magnesium Chloride [Slow-Mag] 71.5 mg PO DAILY 05/17/18 [History] levETIRAcetam [Keppra] 750 mg PO BID 05/17/18 [History] Past Medical History HEENT History: Reports: Hard of Hearing, Impaired Vision, Other (See Below) Other HEENT History: lesley hearing aids Cardiovascular History: Reports: Hypertension JIG BORER History: Reports: Other JIG BORER History: Musculoskeletal History: Reports: Arthritis Neurological History: Reports: CVA, Other (See Below) Other Neuro History: Is on donazepril Psychiatric History: Reports: Dementia Endocrine/Metabolic History: Reports: Diabetes, Type II, IDDM - Infectious Disease History Infectious Disease History: Reports: Mumps - Past Surgical History Cardiovascular Surgical History: Reports: Other (See Below) Other Cardiovascular Surgeries/Procedures: loop implant Social & Family History - Family History Family Medical History: Noncontributory - Caffeine Use Caffeine Use: Reports: Coffee, Soda ED ROS GENERAL - Review of Systems Review Of Systems: ROS reveals no pertinent complaints other than HPI. ED EXAM, NEURO - Physical Exam Exam: See Below Exam Limited By: No Limitations General Appearance: Alert, WD/WN, No Apparent Distress Ears: Normal External Exam Nose: Normal Inspection Throat/Mouth: Normal Inspection Head Exam: Atraumatic Neck: Normal Inspection EKG INTERPRETATION Rhythm: NSR Course - Vital Signs Last Recorded V/S: Last Vital Signs Temp 98.2 F 12/09/18 19:23 Pulse 66 12/09/18 19:23 Resp 17 12/09/18 19:23 BP 188/81 H 12/09/18 19:23 Pulse Ox 96 12/09/18 19:23 - Orders/Labs/Meds Orders: Active Orders 24 hr Category Date Time Status EKG Documentation Completion [RC] ASDIRECTED Care 12/09/18 19:32 Active Head wo Cont [CT] Stat Exams 12/09/18 Taken CULTURE URINE [RM] Routine Lab 12/09/18 19:55 Received Sodium Chloride 0.9% [Normal Saline] 1,000 ml Med 12/09/18 20:15 Active IV ASDIRECTED Sodium Chloride 0.9% [Saline Flush] Med 10/05/19 19:32 Active 10 ml FLUSH ASDIRECTED PRN Peripheral IV Insertion Adult [OM.PC] Routine Oth 12/09/18 19:32 Ordered EKG 12 Lead [EK] Routine Ther 12/09/18 19:32 Ordered Medication Orders Sodium Chloride (Normal Saline) 1,000 mls @ 500 mls/hr IV ASDIRECTED JOSE LUIS Last Admin: 12/09/18 20:11 Dose: 500 mls/hr Sodium Chloride (Saline Flush) 10 ml FLUSH ASDIRECTED PRN PRN Reason: Keep Vein Open Last Admin: 12/09/18 20:28 Dose: 10 ml Labs: Laboratory Tests 12/09/18 12/09/18 12/09/18 Range/Units 19:45 19:45 19:45 WBC 11.1 (4.5-12.0) X10-3/uL RBC 4.49 (3.23-5.20) x10(6)uL Hgb 13.1 (11.5-15.5) g/dL Hct 38.6 (30.0-51.3) % MCV 86.0 (80-96) fL MCH 29.2 (27.7-33.6) pg MCHC 33.9 (32.2-35.4) g/dL RDW 12.9 (11.5-15.5) % Plt Count 177 (125-369) X10(3)uL MPV 9.2 (7.4-10.4) fL Neut % (Auto) 60.9 (46-82) % Lymph % (Auto) 26.1 (13-37) % [place] % (Auto) 6.7 (4-12) % Eos % (Auto) 4 (1.0-5.0) % Baso % (Auto) 3 H (0-2) % Neut # (Auto) 6.8 (1.6-8.3) # Lymph # (Auto) 2.9 (0.6-5.0) # [place] # (Auto) 0.7 (0.0-1.3) # Eos # (Auto) 0.4 (0.0-0.8) # Baso # (Auto) 0.3 H (0.0-0.2) # Sodium 139 (135-145) mmol/L Potassium 3.9 (3.5-5.3) mmol/L Chloride 101 (100-110) mmol/L Carbon Dioxide 29 (21-32) mmol/L BUN 18 D (7-18) mg/dL Creatinine 1.4 H (0.55-1.02) mg/dL Est Cr Clr Drug Dosing TNP Estimated GFR (MDRD) 36 L (>60) BUN/Creatinine Ratio 12.9 (9-20) Glucose 172 H (80-116) mg/dL Calcium 9.1 (8.6-10.2) mg/dL Troponin I < 0.017 L (<0.017-0.056) ng/mL Urine Color (YELLOW) Urine Appearance (CLEAR) Urine pH (5.0-6.5) Ur Specific [place] (1.010-1.025) Urine Protein (NEGATIVE) mg/dL Urine Glucose (UA) (NORMAL) mg/dL Urine Ketones (NEGATIVE) mg/dL Urine Occult Blood (NEGATIVE) Urine Nitrite (NEGATIVE) Urine Bilirubin (NEGATIVE) Urine Urobilinogen (NEGATIVE) mg/dL Ur Leukocyte Esterase (NEGATIVE) Urine RBC (0-5) Urine WBC (0-5) Ur Squamous Epith Cells (NS,R,O) Urine Bacteria (NS) 12/09/18 Range/Units 19:55 WBC (4.5-12.0) X10-3/uL RBC (3.23-5.20) x10(6)uL Hgb (11.5-15.5) g/dL Hct (30.0-51.3) % MCV (80-96) fL MCH (27.7-33.6) pg MCHC (32.2-35.4) g/dL RDW (11.5-15.5) % Plt Count (125-369) X10(3)uL MPV (7.4-10.4) fL Neut % (Auto) (46-82) % Lymph % (Auto) (13-37) % [place] % (Auto) (4-12) % Eos % (Auto) (1.0-5.0) % Baso % (Auto) (0-2) % Neut # (Auto) (1.6-8.3) # Lymph # (Auto) (0.6-5.0) # [place] # (Auto) (0.0-1.3) # Eos # (Auto) (0.0-0.8) # Baso # (Auto) (0.0-0.2) # Sodium (135-145) mmol/L Potassium (3.5-5.3) mmol/L Chloride (100-110) mmol/L Carbon Dioxide (21-32) mmol/L BUN (7-18) mg/dL Creatinine (0.55-1.02) mg/dL Est Cr Clr Drug Dosing Estimated GFR (MDRD) (>60) BUN/Creatinine Ratio (9-20) Glucose (80-116) mg/dL Calcium (8.6-10.2) mg/dL Troponin I (<0.017-0.056) ng/mL Urine Color Yellow (YELLOW) Urine Appearance Slightly cloudy (CLEAR) Urine pH 5.0 (5.0-6.5) Ur Specific [place] 1.015 (1.010-1.025) Urine Protein 500 H (NEGATIVE) mg/dL Urine Glucose (UA) >1000 H (NORMAL) mg/dL Urine Ketones Negative (NEGATIVE) mg/dL Urine Occult Blood Negative (NEGATIVE) Urine Nitrite Positive H (NEGATIVE) Urine Bilirubin Negative (NEGATIVE) Urine Urobilinogen Normal (NEGATIVE) mg/dL Ur Leukocyte Esterase Negative (NEGATIVE) Urine RBC 5-10 H (0-5) Urine WBC 20-30 H (0-5) Ur Squamous Epith Cells Occasional (NS,R,O) Urine Bacteria Moderate H (NS) Meds: Medications Generic Name Dose Route Start Last Admin Trade Name Freq PRN Reason Stop Dose Admin Sodium Chloride 1,000 mls @ 500 mls/hr 12/09/18 20:15 12/09/18 20:11 Normal Saline IV 500 mls/hr ASDIRECTED JOSE LUIS Administration Sodium Chloride 10 ml 12/09/18 19:32 12/09/18 20:28 Saline Flush FLUSH 10 ml ASDIRECTED PRN Administration Keep Vein Open Discontinued Medications Generic Name Dose Route Start Last Admin Trade Name Freq PRN Reason Stop Dose Admin Ceftriaxone Sodium 1 gm/ 50 mls @ 200 mls/hr 12/09/18 20:31 12/09/18 20:34 Sodium Chloride IV 12/09/18 20:45 200 mls/hr ONETIME ONE Administration Ketorolac Tromethamine 15 mg 12/09/18 20:54 12/09/18 21:05 Toradol IVPUSH 12/09/18 20:55 15 mg ONETIME ONE Administration Labetalol HCl 5 mg 12/09/18 20:09 12/09/18 20:14 Normodyne IVPUSH 12/09/18 20:10 5 mg ONETIME ONE Administration Protocol Labetalol HCl 10 mg 12/09/18 20:54 12/09/18 21:05 Normodyne IVPUSH 12/09/18 20:55 10 mg ONETIME ONE Administration Protocol Departure - Departure Time of Disposition: 21:55 Disposition: Home, Self-Care 01 Condition: Good Clinical Impression: UTI, Urinary tract infectious disease - Discharge Information Instructions: Urinary Tract Infection, Adult, [id number] Referrals: PCP,None [Ordering Only Provider] - Forms: ED Department Discharge Additional Instructions: please follow up with your primary care on Tuesday increase fluid intake take cephalexin 500mg 1 tab three a day - Problem List & Annotations (1) Subdural hematoma SNOMED Code(s): 545246535 Code(s): S06.5X9A - TRAUM SUBDR HEM W LOC OF UNSP DURATION, INIT Status: Chronic Current Visit: Yes (2) Dehydration SNOMED Code(s): 70952739 Code(s): E86.0 - DEHYDRATION Status: Acute Current Visit: No (3) UTI, Urinary tract infectious disease SNOMED Code(s): 07596475 Code(s): N39.0 - URINARY TRACT INFECTION, SITE NOT SPECIFIED Status: Acute Current Visit: Yes (4) Diabetes mellitus type 2 SNOMED Code(s): 75224258 Code(s): E11.9 - TYPE 2 DIABETES MELLITUS WITHOUT COMPLICATIONS Status: Acute Current Visit: No (5) Weakness SNOMED Code(s): 10699254 Code(s): R53.1 - WEAKNESS Status: Acute Current Visit: No - Problem List Review Problem List Initiated/Reviewed/Updated: Yes - My Orders Last 24 Hours: My Active Orders 12/09/18 Head wo Cont [CT] Stat 12/09/18 19:32 EKG Documentation Completion [RC] ASDIRECTED Sodium Chloride 0.9% [Saline Flush] 10 ml FLUSH ASDIRECTED PRN Peripheral IV Insertion Adult [OM.PC] Routine EKG 12 Lead [EK] Routine 12/09/18 19:55 CULTURE URINE [RM] Routine 12/09/18 20:15 Sodium Chloride 0.9% [Normal Saline] 1,000 ml IV ASDIRECTED - Assessment/Plan Last 24 Hours: My Active Orders 12/09/18 Head wo Cont [CT] Stat 12/09/18 19:32 EKG Documentation Completion [RC] ASDIRECTED Sodium Chloride 0.9% [Saline Flush] 10 ml FLUSH ASDIRECTED PRN Peripheral IV Insertion Adult [OM.PC] Routine EKG 12 Lead [EK] Routine 12/09/18 19:55 CULTURE URINE [RM] Routine 12/09/18 20:15 Sodium Chloride 0.9% [Normal Saline] 1,000 ml IV ASDIRECTED Plan: The CT showed sub acute,chronic subdural hematomas,aslo seen in May, without any mass effect. He did not find any focal neurologic deficits in the ER. I urine showed some bacteria, for which she got Rocephin 1 g IV. She did a blood pressure with labetalol. She had some leg cramps that was treated Toradol. I discharged to home with instructions to see Dr. Baig on Tuesday. Return to the ED with any worsening symptoms.
[2018-12-09] MEDS ORDERED: Labetalol 20 MG/4 ML Syringe IVPUSH ONE ×2 (20:09→20:54)
[2018-12-09] MEDS ORDERED: Sodium Chloride 0.9% 1,000 ML IV SCH (20:15)
[2018-12-09] MEDS: Sodium Chloride 0.9% 10 ML Syringe FLUSH PRN (20:28)
[2018-12-09] MEDS ORDERED: cefTRIAXone 1 GM in Sodium Chloride 0.9% 50 ML IV ONE (20:31)
[2018-12-09] MEDS ORDERED: Ketorolac 30 MG/ML SDV IVPUSH ONE (20:54)
[2018-12-09] MEDS ORDERED: Morphine 2 MG/ML Syringe IVPUSH PRN (22:21)
[2018-12-09] MEDS: Donepezil 10 MG Tab**OWN MED PO SCH (23:45)
[2018-12-09] MEDS ORDERED: KEPPRA 750 MG PO SCH (23:45)
[2018-12-09] MEDS: SIMVASTATIN 10 MG PO SCH (23:45)
[2018-12-09] MEDS: KEPPRA 750 MG PO SCH (23:45)
[2018-12-09] MEDS: TRESIBA 200 UNIT/ML SUBCUT SCH (23:45)
[2018-12-09] MEDS: HYDRALAZINE 25 MG PO SCH (23:53)
[2018-12-10] MEDS ORDERED: TRESIBA 200 UNIT/ML SUBCUT SCH (00:15)
[2018-12-10] MEDS: NOVOLOG 100 UNIT/ML SUBCUT SCH ×3 (06:29→17:41)
[2018-12-10] MEDS ORDERED: INSULIN LISPRO 10 UNIT SQ SCH (07:30)
--- NOTE | 2018-12-10 08:56 | PCM.HP.2 ---
H&P History of Present Illness - General Date of Service: 12/10/18 Admit Problem/Dx: Admission Diagnosis/Problem Admission Diagnosis/Problem Weakness Source of Information: Patient, EMS Notes Reviewed, Family History Limitations: Reports: No Limitations - History of Present Illness Initial Comments - Free Text/Narative: This is a very pleasant 88-year-old female patient that was brought in to the ER last night by her daughter. She had progressive left arm and leg weakness with garbled speech. Patient has a history of CVA and a subdural hematoma in the past. She was going to be sent home but that she couldn't reach up to put her glasses on with her left hand. So she was admitted for observation. Right now she denies diplopia, blurred vision, dysphagia, aphasia, left arm or leg weakness. She denies history of atrial fibrillation or palpitations or chest pain. She denies shortness of breath wheezing or cough. She was found to have a UTI in the ER. She denies dysuria, pyuria, hematuria. - Related Data Allergies/Adverse Reactions: Allergies Allergy/AdvReac Type Severity Reaction Status Date / Time ciprofloxacin [From Cipro] Allergy Nausea and Verified 12/09/18 21:25 Vomiting ciprofloxacin HCl Allergy Nausea and Verified 12/09/18 21:25 [From Cipro] Vomiting hydrocodone Allergy Nausea and Verified 12/09/18 21:25 Vomiting hydrocortisone sod phosphate Allergy Nausea and Verified 12/09/18 21:25 [From Hydrocortone] Vomiting meperidine HCl [From Demerol] Allergy Nausea and Verified 12/09/18 21:25 Vomiting sulfamethoxazole Allergy Nausea and Verified 12/09/18 21:25 [From Septra] Vomiting trimethoprim [From Septra] Allergy Nausea and Verified 12/09/18 21:25 Vomiting Home Medications: Home Meds Simvastatin [Zocor] 10 mg PO BEDTIME 12/22/12 [History] amLODIPine [Norvasc] 10 mg PO DAILY 12/22/12 [History] Donepezil [Aricept] 10 mg PO BEDTIME 05/22/16 [History] Lisinopril [Prinivil] 40 mg PO DAILY 05/22/16 [History] Metoprolol Succinate [Toprol XL] 25 mg PO DAILY 05/22/16 [History] hydrALAZINE [Apresoline] 50 mg PO BID 05/22/16 [History] Insulin Lispro [HumaLOG] 10 unit SQ ACBREAKFAST 07/27/16 [History] Insulin Lispro [HumaLOG] 15 unit SQ ACLUNCH 07/27/16 [History] Insulin Lispro [HumaLOG] 35 unit SQ ACDINNER 07/27/16 [History] Insulin Degludec [Tresiba Flextouch U-200] 54 unit SQ BEDTIME 05/17/18 [History] Magnesium Chloride [Slow-Mag] 71.5 mg PO DAILY 05/17/18 [History] levETIRAcetam [Keppra] 750 mg PO BID 05/17/18 [History] Past Medical History HEENT History: Reports: Hard of Hearing, Impaired Vision, Other (See Below) Other HEENT History: lesley hearing aids Cardiovascular History: Reports: Hypertension Genitourinary History: Reports: Urinary Incontinence [employer] History: Reports: Other OB/BYN History: Musculoskeletal History: Reports: Arthritis Neurological History: Reports: CVA, Other (See Below) Other Neuro History: Is on donazepril Psychiatric History: Reports: Dementia Endocrine/Metabolic History: Reports: Diabetes, Type II, IDDM - Infectious Disease History Infectious Disease History: Reports: Mumps - Past Surgical History Cardiovascular Surgical History: Reports: Other (See Below) Other Cardiovascular Surgeries/Procedures: loop implant GI Surgical History: Reports: Colonoscopy Social & Family History - Family History Endocrine/Metabolic: Reports: Diabetes, type II - Tobacco Use Smoking Status *Q: Never Smoker Second Hand Smoke Exposure: No - Caffeine Use Caffeine Use: Reports: Coffee Other Caffeine Use: every am - Recreational Drug Use Recreational Drug Use: No H&P Review of Systems - Review of Systems: Review Of Systems: See Below General: Reports: Weakness HEENT: Reports: No Symptoms Pulmonary: Reports: No Symptoms Cardiovascular: Reports: No Symptoms Gastrointestinal: Reports: No Symptoms Genitourinary: Reports: No Symptoms Musculoskeletal: Reports: No Symptoms Skin: Reports: No Symptoms Psychiatric: Reports: No Symptoms Neurological: Reports: Trouble Speaking. Denies: Numbness Hematologic/Lymphatic: Reports: No Symptoms Immunologic: Reports: No Symptoms Exam - Exam Exam: See Below - Vital Signs Vital Signs: Last Vital Signs Temp 97.4 F 12/10/18 06:00 Pulse 57 L 12/10/18 06:00 Resp 16 12/10/18 06:00 BP 132/62 12/10/18 06:00 Pulse Ox 95 12/10/18 06:00 Weight: 160 lb 7 oz - Exam General: Alert, Oriented, Cooperative HEENT: PERRLA, Conjunctiva Clear, Hearing Intact, Mucosa Moist & [place], Normal Nasal Septum, Other (Hearing aids in bilateral ears.) Neck: Supple, Trachea Midline. No: Carotid Bruit Lungs: Clear to Auscultation, Normal Respiratory Effort. No: Decreased Breath Sounds, Crackles, Rales, Rhonchi Cardiovascular: Regular Rate, Regular Rhythm. No: Systolic Murmur GI/Abdominal Exam: Normal Bowel Sounds, Soft, Non-Tender, No Organomegaly, No Distention, No Abnormal Bruit, No Mass Back Exam: Normal Inspection Extremities: Normal Inspection, Normal Range of Motion, No Pedal Edema Skin: Warm, Dry, Intact Neurological: Normal Speech, Normal Tone Neuro Extensive - Mental Status: Alert, Oriented x3, Normal Mood/Affect, Normal Cognition Neuro Extensive - Motor, Sensory, Reflexes: Other (Mild facial droop on the left , left arm weakness that's mild.) Psychiatric: Alert, Normal Affect, Normal Mood - Patient Data Lab Results Last 24 hrs: Laboratory Results - last 24 hr 12/09/18 12/09/18 12/09/18 Range/Units 19:45 19:45 19:45 WBC 11.1 (4.5-12.0) X10-3/uL RBC 4.49 (3.23-5.20) x10(6)uL Hgb 13.1 (11.5-15.5) g/dL Hct 38.6 (30.0-51.3) % MCV 86.0 (80-96) fL MCH 29.2 (27.7-33.6) pg MCHC 33.9 (32.2-35.4) g/dL RDW 12.9 (11.5-15.5) % Plt Count 177 (125-369) X10(3)uL MPV 9.2 (7.4-10.4) fL Neut % (Auto) 60.9 (46-82) % Lymph % (Auto) 26.1 (13-37) % [place]linger % (Auto) 6.7 (4-12) % Eos % (Auto) 4 (1.0-5.0) % Baso % (Auto) 3 H (0-2) % Neut # (Auto) 6.8 (1.6-8.3) # Lymph # (Auto) 2.9 (0.6-5.0) # Bollinger # (Auto) 0.7 (0.0-1.3) # Eos # (Auto) 0.4 (0.0-0.8) # Baso # (Auto) 0.3 H (0.0-0.2) # Sodium 139 (135-145) mmol/L Potassium 3.9 (3.5-5.3) mmol/L Chloride 101 (100-110) mmol/L Carbon Dioxide 29 (21-32) mmol/L BUN 18 D (7-18) mg/dL Creatinine 1.4 H (0.55-1.02) mg/dL Est Cr Clr Drug Dosing TNP Estimated GFR (MDRD) 36 L (>60) BUN/Creatinine Ratio 12.9 (9-20) Glucose 172 H (80-116) mg/dL POC Glucose (80-116) mg/dL Calcium 9.1 (8.6-10.2) mg/dL Total Bilirubin (0.1-1.3) mg/dL AST (5-25) IU/L ALT (12-36) U/L Alkaline Phosphatase (56-112) IU/L Troponin I < 0.017 L (<0.017-0.056) ng/mL Total Protein (6.0-8.0) g/dL Albumin (3.2-4.6) g/dL Globulin g/dL Albumin/Globulin Ratio Urine Color (YELLOW) Urine Appearance (CLEAR) Urine pH (5.0-6.5) Ur Specific [place] (1.010-1.025) Urine Protein (NEGATIVE) mg/dL Urine Glucose (UA) (NORMAL) mg/dL Urine Ketones (NEGATIVE) mg/dL Urine Occult Blood (NEGATIVE) Urine Nitrite (NEGATIVE) Urine Bilirubin (NEGATIVE) Urine Urobilinogen (NEGATIVE) mg/dL Ur Leukocyte Esterase (NEGATIVE) Urine RBC (0-5) Urine WBC (0-5) Ur Squamous Epith Cells (NS,R,O) Urine Bacteria (NS) 12/09/18 12/10/18 12/10/18 Range/Units 19:55 06:25 06:25 WBC 9.0 (4.5-12.0) X10-3/uL RBC 4.02 (3.23-5.20) x10(6)uL Hgb 11.9 (11.5-15.5) g/dL Hct 35.0 (30.0-51.3) % MCV 86.9 (80-96) fL MCH 29.5 (27.7-33.6) pg MCHC 33.9 (32.2-35.4) g/dL RDW 12.9 (11.5-15.5) % Plt Count 204 (125-369) X10(3)uL MPV 8.9 (7.4-10.4) fL Neut % (Auto) 64.1 (46-82) % Lymph % (Auto) 24.1 (13-37) % Bollinger % (Auto) 7.3 (4-12) % Eos % (Auto) 4 (1.0-5.0) % Baso % (Auto) 1 (0-2) % Neut # (Auto) 5.7 (1.6-8.3) # Lymph # (Auto) 2.2 (0.6-5.0) # Bollinger # (Auto) 0.7 (0.0-1.3) # Eos # (Auto) 0.4 (0.0-0.8) # Baso # (Auto) 0.0 (0.0-0.2) # Sodium 138 (135-145) mmol/L Potassium 4.0 (3.5-5.3) mmol/L Chloride 103 (100-110) mmol/L Carbon Dioxide 27 (21-32) mmol/L BUN 19 H (7-18) mg/dL Creatinine 1.2 H (0.55-1.02) mg/dL Est Cr Clr Drug Dosing 26.62 Estimated GFR (MDRD) 43 L (>60) BUN/Creatinine Ratio 15.8 (9-20) Glucose 258 H D (80-116) mg/dL POC Glucose (80-116) mg/dL Calcium 8.2 L (8.6-10.2) mg/dL Total Bilirubin 0.3 (0.1-1.3) mg/dL AST 11 (5-25) IU/L ALT 14 (12-36) U/L Alkaline Phosphatase 88 (56-112) IU/L Troponin I (<0.017-0.056) ng/mL Total Protein 5.8 L (6.0-8.0) g/dL Albumin 2.9 L (3.2-4.6) g/dL Globulin 2.9 g/dL Albumin/Globulin Ratio 1.0 Urine Color Yellow (YELLOW) Urine Appearance Slightly cloudy (CLEAR) Urine pH 5.0 (5.0-6.5) Ur Specific [place] 1.015 (1.010-1.025) Urine Protein 500 H (NEGATIVE) mg/dL Urine Glucose (UA) >1000 H (NORMAL) mg/dL Urine Ketones Negative (NEGATIVE) mg/dL Urine Occult Blood Negative (NEGATIVE) Urine Nitrite Positive H (NEGATIVE) Urine Bilirubin Negative (NEGATIVE) Urine Urobilinogen Normal (NEGATIVE) mg/dL Ur Leukocyte Esterase Negative (NEGATIVE) Urine RBC 5-10 H (0-5) Urine WBC 20-30 H (0-5) Ur Squamous Epith Cells Occasional (NS,R,O) Urine Bacteria Moderate H (NS) 12/10/18 Range/Units 06:27 WBC (4.5-12.0) X10-3/uL RBC (3.23-5.20) x10(6)uL Hgb (11.5-15.5) g/dL Hct (30.0-51.3) % MCV (80-96) fL MCH (27.7-33.6) pg MCHC (32.2-35.4) g/dL RDW (11.5-15.5) % Plt Count (125-369) X10(3)uL MPV (7.4-10.4) fL Neut % (Auto) (46-82) % Lymph % (Auto) (13-37) % [place]linger % (Auto) (4-12) % Eos % (Auto) (1.0-5.0) % Baso % (Auto) (0-2) % Neut # (Auto) (1.6-8.3) # Lymph # (Auto) (0.6-5.0) # [place]linger # (Auto) (0.0-1.3) # Eos # (Auto) (0.0-0.8) # Baso # (Auto) (0.0-0.2) # Sodium (135-145) mmol/L Potassium (3.5-5.3) mmol/L Chloride (100-110) mmol/L Carbon Dioxide (21-32) mmol/L BUN (7-18) mg/dL Creatinine (0.55-1.02) mg/dL Est Cr Clr Drug Dosing Estimated GFR (MDRD) (>60) BUN/Creatinine Ratio (9-20) Glucose (80-116) mg/dL POC Glucose 236 H (80-116) mg/dL Calcium (8.6-10.2) mg/dL Total Bilirubin (0.1-1.3) mg/dL AST (5-25) IU/L ALT (12-36) U/L Alkaline Phosphatase (56-112) IU/L Troponin I (<0.017-0.056) ng/mL Total Protein (6.0-8.0) g/dL Albumin (3.2-4.6) g/dL Globulin g/dL Albumin/Globulin Ratio Urine Color (YELLOW) Urine Appearance (CLEAR) Urine pH (5.0-6.5) Ur Specific [place] (1.010-1.025) Urine Protein (NEGATIVE) mg/dL Urine Glucose (UA) (NORMAL) mg/dL Urine Ketones (NEGATIVE) mg/dL Urine Occult Blood (NEGATIVE) Urine Nitrite (NEGATIVE) Urine Bilirubin (NEGATIVE) Urine Urobilinogen (NEGATIVE) mg/dL Ur Leukocyte Esterase (NEGATIVE) Urine RBC (0-5) Urine WBC (0-5) Ur Squamous Epith Cells (NS,R,O) Urine Bacteria (NS) Result Diagrams: 12/10/18 06:25 12/10/18 06:25 - Problem List (1) UTI, Urinary tract infectious disease SNOMED Code(s): 70027223 ICD Code: N39.0 - URINARY TRACT INFECTION, SITE NOT SPECIFIED Status: Acute Current Visit: Yes (2) Subdural hematoma SNOMED Code(s): 738816879 ICD Code: S06.5X9A - TRAUM SUBDR HEM W LOC OF UNSP DURATION, INIT Status: Chronic Current Visit: Yes (3) Chronic kidney disease stage 2 SNOMED Code(s): 599354497 ICD Code: N18.2 - CHRONIC KIDNEY DISEASE, STAGE 2 (MILD) Status: Acute Current Visit: No (4) Diabetes mellitus type 2 SNOMED Code(s): 25286896 ICD Code: E11.9 - TYPE 2 DIABETES MELLITUS WITHOUT COMPLICATIONS Status: Acute Current Visit: No (5) Weakness SNOMED Code(s): 60745501 ICD Code: R53.1 - WEAKNESS Status: Acute Current Visit: No (6) Palliative care status SNOMED Code(s): 355133483 ICD Code: Z51.5 - ENCOUNTER FOR PALLIATIVE CARE Status: Acute Current Visit: Yes Problem List Initiated/Reviewed/Updated: Yes Orders Last 24hrs: Active Orders 24 hr Category Date Time Status Patient Status [ADT] Routine ADT 12/09/18 22:21 Active Accu Check [Blood Glucose Check, Bedside] [RC] ,11,17 Care 12/09/18 22:23 Active ,2100 Cardiac Monitoring [RC] CONTINUOUS Care 12/09/18 22:21 Active EKG Documentation Completion [RC] ASDIRECTED Care 12/09/18 19:32 Active Influenza Vaccine Charge [RC] .DISCHARGE Care 12/09/18 23:11 Active Oxygen Therapy [RC] PRN Care 12/09/18 22:21 Active Up With Assistance [RC] ASDIRECTED Care 12/09/18 22:21 Active VTE/DVT Education [RC] Per Unit Routine Care 12/09/18 22:21 Active Vital Signs [RC] Q4H Care 12/09/18 22:21 Active OT Evaluation and Treatment [CONS] Routine Cons 12/09/18 22:21 Active PT Evaluation and Treatment [CONS] Routine Cons 12/09/18 22:21 Active CV Carotid Duplex Comp [US] Timed Exams 12/10/18 07:29 Ordered Head wo Cont [CT] Timed Exams 12/11/18 07:29 Ordered CBC WITH AUTO DIFF [HEME] AM Lab 12/11/18 05:11 Ordered COMPREHENSIVE METABOLIC PN,CMP [CHEM] AM Lab 12/11/18 05:11 Ordered CULTURE URINE [RM] Routine Lab 12/09/18 19:55 Received Donepezil [Aricept] Med 12/09/18 23:45 Active 10 mg PO BEDTIME FLU Vacc [id number](6MOS+)/PF [Fluzone Quad Med 12/10/18 09:00 Once Syringe] 60 mcg IM .ONCE ONE Lisinopril [Prinivil] Med 12/10/18 09:00 Active 40 mg PO DAILY Metoprolol Succinate [Toprol XL] Med 12/10/18 09:00 Active 25 mg PO DAILY Morphine Med 12/09/18 22:21 Active 2 mg IVPUSH Q2H PRN Patient's Own Medication [Ptom] Med 12/10/18 07:30 Active 0 each SUBCUT ACBREAKFAST Patient's Own Medication [Ptom] Med 12/10/18 17:30 Active 0 each SUBCUT ACDINNER Patient's Own Medication [Ptom] Med 12/10/18 11:30 Active 0 each SUBCUT ACLUNCH Patient's Own Medication [Ptom] Med 12/10/18 00:15 Active 0 each SUBCUT BEDTIME Patient's Own Medication [Ptom] Med 12/09/18 23:45 Active 1 each PO BID Patient's Own Medication [Ptom] Med 12/10/18 09:00 Active 1 each PO DAILY Simvastatin [Zocor] Med 12/09/18 23:45 Active 10 mg PO BEDTIME Sodium Chloride 0.9% [Normal Saline] 1,000 ml Med 12/09/18 20:15 Active IV ASDIRECTED Sodium Chloride 0.9% [Saline Flush] Med 12/09/18 19:32 Active 10 ml FLUSH ASDIRECTED PRN amLODIPine [Norvasc] Med 12/10/18 09:00 Active 10 mg PO DAILY cephALEXin [Keflex] Med 12/10/18 09:00 Active 250 mg PO TID hydrALAZINE [Apresoline] Med 12/09/18 23:45 Active 50 mg PO BID Peripheral IV Insertion Adult [OM.PC] Routine Oth 12/09/18 19:32 Ordered Resuscitation Status Routine Resus Stat 12/09/18 22:21 Ordered EKG 12 Lead [EK] Routine Ther 12/09/18 19:32 Ordered Medication Orders Amlodipine Besylate (Norvasc) 10 mg PO DAILY JOSE LUIS Cephalexin (Keflex) 250 mg PO TID JOSE LUIS Donepezil HCl (Aricept) 10 mg PO BEDTIME JOSE LUIS Last Admin: 12/09/18 23:45 Dose: 10 mg Hydralazine HCl (Apresoline) 50 mg PO BID JOSE LUIS Last Admin: 12/09/18 23:53 Dose: 50 mg Sodium Chloride (Normal Saline) 1,000 mls @ 500 mls/hr IV ASDIRECTED JOSE LUIS Last Admin: 12/09/18 20:11 Dose: 500 mls/hr Influenza Virus Vaccine (Fluzone Quad [id number] Syringe) 60 mcg IM .ONCE ONE Stop: 12/10/18 09:01 Lisinopril (Prinivil) 40 mg PO DAILY [facility] Metoprolol Succinate (Toprol Xl) 25 mg PO DAILY [facility] Morphine Sulfate (Morphine) 2 mg IVPUSH Q2H PRN PRN Reason: Pain (severe 7-10) Patient's Own MedicationKeppra 750 Mg 1 each PO BID [facility] Last Admin: 12/09/18 23:45 Dose: 1 each Patient's Own MedicationTresiba 200 Units/Ml 0 each SUBCUT BEDTIME [facility] Last Admin: 12/09/18 23:45 Dose: 54 each Patient's Own MedicationSlow Mag 71.5 Mg 1 each PO DAILY [facility] Patient's Own MedicationNovolog Pen 100 Units/Ml 0 each SUBCUT ACBREAKFAST [facility] Last Admin: 12/10/18 06:29 Dose: 10 each Patient's Own MedicationNovolog Pen 100 Units/Ml 0 each SUBCUT ACLUNCH [facility] Patient's Own MedicationNovolog Pen 100 Units/Ml 0 each SUBCUT ACDINNER [facility] Simvastatin (Zocor) 10 mg PO BEDTIME [facility] Last Admin: 12/09/18 23:45 Dose: 10 mg Sodium Chloride (Saline Flush) 10 ml FLUSH ASDIRECTED PRN PRN Reason: Keep Vein Open Last Admin: 12/09/18 20:28 Dose: 10 ml Assessment/Plan Comment:: 1. Admit for observation. 2. Diabetic diet with Accu-Cheks 3. Up with assist 4. Repeat CT scan tomorrow 5. Labs repeated this morning. 6. Cephalexin dose change from 500 3 times a day to 250 3 times a day per pharmacy request. 7. Neuro checks 8. Telemetry 9. VTE propholaxis with Lovenox. - Mortality Measure Prognosis:: Good
[2018-12-10] MEDS ORDERED: amLODIPine 5 MG Tab PO SCH (09:00)
[2018-12-10] MEDS ORDERED: Metoprolol Succinate 25 MG Tab.ER PO SCH (09:00)
[2018-12-10] MEDS ORDERED: Cephalexin 500 MG Cap PO SCH (09:00)
[2018-12-10] MEDS ORDERED: Non-Formulary Medication 1 Each (Magnesium Chloride [Slow-Mag] 71.5 MG) PO SCH (09:00)
[2018-12-10] MEDS ORDERED: levETIRAcetam 500 MG Tab PO SCH (09:00)
[2018-12-10] MEDS ORDERED: KEPPRA 750 MG PO SCH ×2 (09:00)
[2018-12-10] MEDS ORDERED: hydrALAZINE 25 MG Tab PO SCH (09:00)
[2018-12-10] MEDS ORDERED: FLU Vacc QS2019-20(6MOS+)/PF 60 MCG/0.5 ML SYRINGE IM ONE (09:00)
[2018-12-10] MEDS: Metoprolol Succinate 25 MG Tab.ER**OWN MED PO SCH (09:48)
[2018-12-10] MEDS: amLODIPine 10 MG Tab**OWN MED PO SCH (09:49)
[2018-12-10] MEDS: HYDRALAZINE 25 MG PO SCH ×2 (09:50→20:09)
[2018-12-10] MEDS: LISINOPRIL 40 MG PO SCH (09:50)
[2018-12-10] MEDS: KEPPRA 750 MG PO SCH ×2 (09:51→20:09)
[2018-12-10] MEDS: SLOW MAG 71.5 MG PO SCH (09:52)
[2018-12-10] MEDS: Cephalexin 250 MG Cap PO SCH ×3 (10:01→20:11)
[2018-12-10] MEDS: Enoxaparin 30 MG/0.3 ML Syringe SUBCUT SCH (10:02)
[2018-12-10] MEDS ORDERED: INSULIN LISPRO 15 UNIT SQ SCH (11:30)
[2018-12-10] MEDS ORDERED: INSULIN LISPRO 35 UNIT SQ SCH (17:30)
[2018-12-10] MEDS: Donepezil 10 MG Tab**OWN MED PO SCH (20:07)
[2018-12-10] MEDS: SIMVASTATIN 10 MG PO SCH (20:10)
[2018-12-10] MEDS ORDERED: Donepezil 5 MG Tab PO SCH (21:00)
[2018-12-10] MEDS ORDERED: INSULIN DEGLUDEC SQ SCH (21:00)
[2018-12-10] MEDS ORDERED: Simvastatin 10 MG Tab PO SCH (21:00)
[2018-12-10] MEDS: TRESIBA 200 UNIT/ML SUBCUT SCH (21:14)
[2018-12-11] MEDS: Sodium Chloride 0.9% 10 ML Syringe FLUSH PRN (07:56)
--- NOTE | 2018-12-11 08:52 | PCM.PN ---
- General Info Date of Service: 12/11/18 Subjective Update: Lucila slept well, she complains of mild abdominal discomfort. Functional Status: Reports: Pain Controlled, Tolerating Diet - Review of Systems HEENT: Reports: No Symptoms Pulmonary: Reports: No Symptoms Cardiovascular: Reports: No Symptoms Gastrointestinal: Reports: No Symptoms - Patient Data Vitals - Most Recent: Last Vital Signs Temp 98 F 12/11/18 01:30 Pulse 63 12/11/18 01:30 Resp 20 12/11/18 03:59 BP 124/61 12/11/18 01:30 Pulse Ox 97 12/11/18 03:59 Weight - Most Recent: 72.773 kg Lab Results Last 24 Hours: Laboratory Results - last 24 hr 12/10/18 12/10/18 12/10/18 Range/Units 12:11 17:34 20:14 WBC (4.5-12.0) X10-3/uL RBC (3.23-5.20) x10(6)uL Hgb (11.5-15.5) g/dL Hct (30.0-51.3) % MCV (80-96) fL MCH (27.7-33.6) pg MCHC (32.2-35.4) g/dL RDW (11.5-15.5) % Plt Count (125-369) X10(3)uL MPV (7.4-10.4) fL Neut % (Auto) (46-82) % Lymph % (Auto) (13-37) % [place] % (Auto) (4-12) % Eos % (Auto) (1.0-5.0) % Baso % (Auto) (0-2) % Neut # (Auto) (1.6-8.3) # Lymph # (Auto) (0.6-5.0) # [place] # (Auto) (0.0-1.3) # Eos # (Auto) (0.0-0.8) # Baso # (Auto) (0.0-0.2) # Sodium (135-145) mmol/L Potassium (3.5-5.3) mmol/L Chloride (100-110) mmol/L Carbon Dioxide (21-32) mmol/L BUN (7-18) mg/dL Creatinine (0.55-1.02) mg/dL Est Cr Clr Drug Dosing mL/min Estimated GFR (MDRD) (>60) BUN/Creatinine Ratio (9-20) Glucose (80-116) mg/dL POC Glucose 211 H 262 H 163 H D (80-116) mg/dL Calcium (8.6-10.2) mg/dL Total Bilirubin (0.1-1.3) mg/dL AST (5-25) IU/L ALT (12-36) U/L Alkaline Phosphatase (56-112) IU/L Total Protein (6.0-8.0) g/dL Albumin (3.2-4.6) g/dL Globulin g/dL Albumin/Globulin Ratio 12/11/18 12/11/18 Range/Units 06:45 06:45 WBC 8.4 (4.5-12.0) X10-3/uL RBC 4.10 (3.23-5.20) x10(6)uL Hgb 12.2 (11.5-15.5) g/dL Hct 35.2 (30.0-51.3) % MCV 85.8 (80-96) fL MCH 29.7 (27.7-33.6) pg MCHC 34.7 (32.2-35.4) g/dL RDW 13.1 (11.5-15.5) % Plt Count 213 (125-369) X10(3)uL MPV 9.3 (7.4-10.4) fL Neut % (Auto) 67.1 (46-82) % Lymph % (Auto) 20.6 (13-37) % [place] % (Auto) 6.1 (4-12) % Eos % (Auto) 6 H (1.0-5.0) % Baso % (Auto) 0 (0-2) % Neut # (Auto) 5.7 (1.6-8.3) # Lymph # (Auto) 1.7 (0.6-5.0) # [place] # (Auto) 0.5 (0.0-1.3) # Eos # (Auto) 0.5 (0.0-0.8) # Baso # (Auto) 0.0 (0.0-0.2) # Sodium 139 (135-145) mmol/L Potassium 4.5 (3.5-5.3) mmol/L Chloride 105 (100-110) mmol/L Carbon Dioxide 28 (21-32) mmol/L BUN 22 H (7-18) mg/dL Creatinine 1.3 H (0.55-1.02) mg/dL Est Cr Clr Drug Dosing 24.57 mL/min Estimated GFR (MDRD) 39 L (>60) BUN/Creatinine Ratio 16.9 (9-20) Glucose 131 H D (80-116) mg/dL POC Glucose (80-116) mg/dL Calcium 8.7 (8.6-10.2) mg/dL Total Bilirubin 0.2 (0.1-1.3) mg/dL AST 13 D (5-25) IU/L ALT 14 (12-36) U/L Alkaline Phosphatase 83 (56-112) IU/L Total Protein 5.8 L (6.0-8.0) g/dL Albumin 2.8 L (3.2-4.6) g/dL Globulin 3.0 g/dL Albumin/Globulin Ratio 0.9 Bharath Results Last 24 Hours: Microbiology 12/09/18 19:55 Urine Culture - Preliminary Urine, Quick Cath (In-Out) Gram Negative Rods Med Orders - Current: Current Medications Amlodipine Besylate (Norvasc) 10 mg PO DAILY [facility] Last Admin: 12/10/18 09:49 Dose: 10 mg Cephalexin (Keflex) 250 mg PO TID [facility] Last Admin: 12/10/18 20:11 Dose: 250 mg Donepezil HCl (Aricept) 10 mg PO BEDTIME [facility] Last Admin: 12/10/18 20:07 Dose: 10 mg Enoxaparin Sodium (Lovenox) 30 mg SUBCUT Q24H [facility] Last Admin: 12/10/18 10:02 Dose: 30 mg Hydralazine HCl (Apresoline) 50 mg PO BID [facility] Last Admin: 12/10/18 20:09 Dose: 50 mg Sodium Chloride (Normal Saline) 1,000 mls @ 500 mls/hr IV ASDIRECTED [facility] Last Admin: 12/09/18 20:11 Dose: 500 mls/hr Lisinopril (Prinivil) 40 mg PO DAILY [facility] Last Admin: 12/10/18 09:50 Dose: 40 mg Metoprolol Succinate (Toprol Xl) 25 mg PO DAILY [facility] Last Admin: 12/10/18 09:48 Dose: 25 mg Morphine Sulfate (Morphine) 2 mg IVPUSH Q2H PRN PRN Reason: Pain (severe 7-10) Patient's Own MedicationKeppra 750 Mg 1 each PO BID [facility] Last Admin: 12/10/18 20:09 Dose: 1 each Patient's Own MedicationTresiba 200 Units/Ml 0 each SUBCUT BEDTIME [facility] Last Admin: 12/10/18 21:14 Dose: 54 each Patient's Own MedicationSlow Mag 71.5 Mg 1 each PO DAILY [facility] Last Admin: 12/10/18 09:52 Dose: 1 each Patient's Own MedicationNovolog Pen 100 Units/Ml 0 each SUBCUT ACBREAKFAST [facility] Last Admin: 12/10/18 06:29 Dose: 10 each Patient's Own MedicationNovolog Pen 100 Units/Ml 0 each SUBCUT ACLUNCH [facility] Last Admin: 12/10/18 12:15 Dose: 15 each Patient's Own MedicationNovolog Pen 100 Units/Ml 0 each SUBCUT ACDINNER [facility] Last Admin: 12/10/18 17:41 Dose: 35 each Simvastatin (Zocor) 10 mg PO BEDTIME [facility] Last Admin: 12/10/18 20:10 Dose: 10 mg Sodium Chloride (Saline Flush) 10 ml FLUSH ASDIRECTED PRN PRN Reason: Keep Vein Open Last Admin: 12/11/18 07:56 Dose: 10 ml Discontinued Medications Amlodipine Besylate (Norvasc) 10 mg PO DAILY [facility] Cephalexin (Keflex) 500 mg PO TID [facility] Donepezil HCl (Aricept) 10 mg PO BEDTIME [facility] Hydralazine HCl (Apresoline) 50 mg PO BID [facility] Ceftriaxone Sodium 1 gm/ (Sodium Chloride) 50 mls @ 200 mls/hr IV ONETIME ONE Stop: 12/09/18 20:45 Last Admin: 12/09/18 20:34 Dose: 200 mls/hr Influenza Virus Vaccine (Pharmacy To Dose - Influenza Vaccine) 1 each IM ONETIME ONE Stop: 12/09/18 23:12 Influenza Virus Vaccine (Fluzone Quad Syringe) 60 mcg IM .ONCE ONE Stop: 12/10/18 09:01 Last Admin: 12/10/18 09:40 Dose: 60 mcg Ketorolac Tromethamine (Toradol) 15 mg IVPUSH ONETIME ONE Stop: 12/09/18 20:55 Last Admin: 12/09/18 21:05 Dose: 15 mg Labetalol HCl (Normodyne) 5 mg IVPUSH ONETIME ONE; Protocol Stop: 12/09/18 20:10 Last Admin: 12/09/18 20:14 Dose: 5 mg Labetalol HCl (Normodyne) 10 mg IVPUSH ONETIME ONE; Protocol Stop: 12/09/18 20:55 Last Admin: 12/09/18 21:05 Dose: 10 mg Levetiracetam (Keppra) 750 mg PO BID [facility] Lisinopril (Prinivil) 40 mg PO DAILY [facility] Metoprolol Succinate (Toprol Xl) 25 mg PO DAILY [facility] Non-Formulary Medication (Insulin Degludec) 54 unit SQ BEDTIME [facility] Non-Formulary Medication (Insulin Lispro [Humalog]) 10 unit SQ ACBREAKFAST [facility] Non-Formulary Medication (Insulin Lispro [Humalog]) 15 unit SQ ACLUNCH [facility] Non-Formulary Medication (Insulin Lispro [Humalog]) 35 unit SQ ACDINNER [facility] Non-Formulary Medication (Magnesium Chloride [Slow-Mag]) 71.5 mg PO DAILY [facility] Patient's Own MedicationKeppra 750 Mg 1 each PO BID [facility] Last Admin: 12/09/18 23:58 Dose: 1 each Patient's Own MedicationKeppra 750 Mg 1 each PO BID [facility] Patient's Own MedicationKeppra 750 Mg 1 each PO BID [facility] Patient's Own MedicationTresiba 200 Units/Ml 0 each SUBCUT BEDTIME [facility] Simvastatin (Zocor) 10 mg PO BEDTIME [facility] - Exam Quality Assessment: Supplemental Oxygen General: Alert HEENT: Pupils Equal Neck: Supple Lungs: Clear to Auscultation Cardiovascular: Regular Rate GI/Abdominal Exam: Normal Bowel Sounds, Soft, Non-Tender, No Organomegaly - Problem List & Annotations (1) Subdural hematoma SNOMED Code(s): 898397491 Code(s): S06.5X9A - TRAUM SUBDR HEM W LOC OF UNSP DURATION, INIT Status: Chronic Current Visit: Yes (2) Dehydration SNOMED Code(s): 66095524 Code(s): E86.0 - DEHYDRATION Status: Acute Current Visit: No (3) UTI, Urinary tract infectious disease SNOMED Code(s): 56767132 Code(s): N39.0 - URINARY TRACT INFECTION, SITE NOT SPECIFIED Status: Acute Current Visit: Yes (4) Diabetes mellitus type 2 SNOMED Code(s): 79460746 Code(s): E11.9 - TYPE 2 DIABETES MELLITUS WITHOUT COMPLICATIONS Status: Acute Current Visit: No (5) Weakness SNOMED Code(s): 93381098 Code(s): R53.1 - WEAKNESS Status: Acute Current Visit: No (6) Dementia SNOMED Code(s): 29099520 Code(s): F03.90 - UNSPECIFIED DEMENTIA WITHOUT BEHAVIORAL DISTURBANCE Status: Acute Current Visit: Yes Qualifiers: Alzheimer's disease onset: late-onset Dementia behavioral disturbance: without behavioral disturbance - Problem List Review Problem List Initiated/Reviewed/Updated: Yes - My Orders Last 24 Hours: My Active Orders 12/10/18 09:00 Lisinopril [Prinivil] 40 mg PO DAILY Metoprolol Succinate [Toprol XL] 25 mg PO DAILY Patient's Own Medication [Ptom] 1 each PO DAILY amLODIPine [Norvasc] 10 mg PO DAILY 12/10/18 11:30 Patient's Own Medication [Ptom] 0 each SUBCUT ACLUNCH 12/10/18 17:30 Patient's Own Medication [Ptom] 0 each SUBCUT ACDINNER 12/11/18 07:29 Head wo Cont [CT] Timed - Plan Plan:: Had a long discussion with the family, and they are interested in an independent living facility along with her . They have an appointment to this morning. I will discharge the patient today.CT was negative. US to be done on an ambulatory basis
[2018-12-11] MEDS: NOVOLOG 100 UNIT/ML SUBCUT SCH ×3 (08:57→18:32)
[2018-12-11] MEDS: HYDRALAZINE 25 MG PO SCH (08:58)
[2018-12-11] MEDS: Cephalexin 250 MG Cap PO SCH ×3 (08:59→18:32)
[2018-12-11] MEDS: Enoxaparin 30 MG/0.3 ML Syringe SUBCUT SCH (08:59)
[2018-12-11] MEDS: amLODIPine 10 MG Tab**OWN MED PO SCH (09:00)
[2018-12-11] MEDS: KEPPRA 750 MG PO SCH (09:00)
[2018-12-11] MEDS: LISINOPRIL 40 MG PO SCH (09:00)
[2018-12-11] MEDS: SLOW MAG 71.5 MG PO SCH (09:01)
[2018-12-11] MEDS: Metoprolol Succinate 25 MG Tab.ER**OWN MED PO SCH (09:01)
[2018-12-11 09:04] VITALS: PULSE 66
--- NOTE | 2018-12-11 10:40 | CT ---
INDICATION: Left arm weakness followup. CT HEAD WITHOUT CONTRAST: Spiral examination of the brain axially with sagittal and coronal reconstructions was obtained 12/11/18 and compared with 07/23 and 05/03/18. Total exam DLP = 1,348.07 mGy-cm. Calcifications are again noted in the vertebral and internal carotid arteries. The paranasal sinuses and the mastoid air cells appear to be fairly well- aerated. No cranial fracture site was identified. The orbits appear to be intact, except to note a focal area of thickening of soft tissue, possibly representing a soft tissue mass anteromedially at the left orbit. No shift of midline structures was identified. Ventricles are somewhat prominent, as previously, compatible with mild central atrophy and the patient s age. Bilateral subdural hematomas are again noted with intermediate density, more prominent on the left than right in the frontoparietal areas, extending into the temporal areas minimally bilaterally. There also appears to be some very minimal extension into the occipital lobe on the left. No definite interval change in the subdural hematomas is identified to suggest an acute subdural hematoma. Lacunar infarcts are suggested in the caudate nucleus on the right and anterior limb of the internal capsule on the left. The apparent lacunar infarct at the anterior limb of the left internal capsule appears to be slightly better defined , suggested an evolving lacunar infarct in that area. Periventricular white matter changes are mild to moderate, compatible with microvascular disease, although other cause of leukoencephalopathy cannot be excluded. IMPRESSION: 1. Bilateral subdural hematomas extending from the frontal into the parietal and temporal areas bilaterally and slightly into the occipital area on the left. The hematoma on the right is less prominent and appears stable. The hematoma on the left is larger than the right but does appear to be slightly diminished in prominence. 2. Mild to moderate microvascular disease type changes, although other cause of leukoencephalopathy cannot be excluded. 3. Lacunar infarcts, caudate nucleus on the right and internal capsule anteriorly on the left, the latter of which may be evolving. 4. Mild central atrophy. 5. Arterial calcifications, fairly heavy in the vertebral and internal carotid arteries. 6. No new acute process intracranially. MTDD
[2018-12-11 18:12] VITALS: BP 125/65
== END 2018-12-11 18:55 | disposition home or self-care (01) ==
LOC: FB.ED 19:23 → FB.MS 22:26
PROVIDERS: ADMIT Family Medicine; ATTEND Family Medicine
DX: S06.5X9A Traumatic subdural hemorrhage with loss of consciousness of unspecified duration, initial encounter (principal); N39.0 Urinary tract infection, site not specified; N18.2 Chronic kidney disease, stage 2 (mild); E11.9 Type 2 diabetes mellitus without complications; Z51.5 Encounter for palliative care; Z88.1 Allergy status to other antibiotic agents; Z88.5 Allergy status to narcotic agent; Z88.8 Allergy status to other drugs, medicaments and biological substances; Z88.2 Allergy status to sulfonamides; Z79.899 Other long term (current) drug therapy; Z79.4 Long term (current) use of insulin
CPT/HCPCS: 36415; 70450; 80048; 80053; 81001; 82962; 84484; 85025; 87086; 87088; 87186; 90686; 93005; 96361; 96372; 96374; 96375; 96376; 97161-GP; 99217; 99218; 99285-25; A9270-GY; G0008; G0378; J0696; J1650; J1885; J3490; J7030; J7050

== ENCOUNTER 2019-03-12 11:58 | Inpatient (IN) | payer MEDICARE, BC ==
[2019-03-12] MEDS ORDERED: Ondansetron 4 MG/2 ML SDV IVPUSH ONE (12:25)
[2019-03-12] MEDS ORDERED: Sodium Chloride 0.9% 1,000 ML IV SCH (12:30)
[2019-03-12] MEDS ORDERED: 50% Dextrose in Water 50 ML Syringe IVPUSH ONE (12:50)
[2019-03-12] MEDS ORDERED: Calcium Gluconate 10% 1 GM/10 ML SDV IVPUSH ONE (12:50)
[2019-03-12] MEDS ORDERED: Insulin Regular, Human 100 Units/ML 3 ML Vial SUBCUT ONE (12:50)
[2019-03-12] MEDS ORDERED: Albuterol 0.083% 2.5 MG/3 ML Neb Soln NEB ONE (12:50)
[2019-03-12] MEDS ORDERED: Sodium Bicarbonate 8.4% 50 MEQ/50 ML Syringe IVPUSH ONE (12:50)
[2019-03-12] MEDS ORDERED: Sodium Bicarbonate 8.4% 50 MEQ/50 ML SDV IVPUSH ONE (13:30)
[2019-03-12] MEDS: Sodium Chloride 0.9% 1,000 ML IV SCH ×2 (13:54→21:58)
--- NOTE | 2019-03-12 15:09 | EDM.PDOC ---
ED HPI GENERAL MEDICAL PROBLEM - General Chief Complaint: General Stated Complaint: BAD LAB AT CLINIC Time Seen by Provider: 03/12/19 12:35 Source of Information: Reports: Patient History Limitations: Reports: No Limitations - History of Present Illness INITIAL COMMENTS - FREE TEXT/NARRATIVE: Patient presented to the ED from the clinic because of weakness and diarrhea. She apparently has been having diarrhea for a week and poor oral intake. She denies any N/V or any urinary symptoms, no fever or chills. She was then seen in the clinic this morning and her K + was 6.3 and other labs are abnormal including CREA-2.6 and wbc -15.9 - Related Data Allergies Allergy/AdvReac Type Severity Reaction Status Date / Time ciprofloxacin [From Cipro] Allergy Nausea and Verified 03/12/19 12:14 Vomiting ciprofloxacin HCl Allergy Nausea and Verified 03/12/19 12:14 [From Cipro] Vomiting hydrocodone Allergy Nausea and Verified 03/12/19 12:14 Vomiting hydrocortisone sod phosphate Allergy Nausea and Verified 03/12/19 12:14 [From Hydrocortone] Vomiting meperidine HCl [From Demerol] Allergy Nausea and Verified 03/12/19 12:14 Vomiting sulfamethoxazole Allergy Nausea and Verified 03/12/19 12:14 [From Septra] Vomiting trimethoprim [From Septra] Allergy Nausea and Verified 03/12/19 12:14 Vomiting Home Meds: Home Meds Simvastatin [Zocor] 10 mg PO BEDTIME 12/22/12 [History] amLODIPine [Norvasc] 10 mg PO DAILY 12/22/12 [History] Donepezil [Aricept] 10 mg PO BEDTIME 05/22/16 [History] Lisinopril [Prinivil] 40 mg PO DAILY 05/22/16 [History] Metoprolol Succinate [Toprol XL] 25 mg PO DAILY 05/22/16 [History] hydrALAZINE [Apresoline] 50 mg PO BID 05/22/16 [History] Insulin Lispro [HumaLOG] 10 unit SQ ACBREAKFAST 07/27/16 [History] Insulin Lispro [HumaLOG] 15 unit SQ ACLUNCH 07/27/16 [History] Insulin Lispro [HumaLOG] 35 unit SQ ACDINNER 07/27/16 [History] Insulin Degludec [Tresiba Flextouch U-200] 48 unit SQ BEDTIME 05/17/18 [History] Magnesium Chloride [Slow-Mag] 64 mg PO DAILY 05/17/18 [History] levETIRAcetam [Keppra] 750 mg PO BID 05/17/18 [History] Sertraline [Zoloft] 25 mg PO BEDTIME 03/12/19 [History] Past Medical History HEENT History: Reports: Hard of Hearing, Impaired Vision, Other (See Below) Other HEENT History: lesley hearing aids Cardiovascular History: Reports: Hypertension Genitourinary History: Reports: Urinary Incontinence 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 History: Musculoskeletal History: Reports: Arthritis Neurological History: Reports: CVA, Other (See Below) Other Neuro History: Is on donazepril Psychiatric History: Reports: Dementia Endocrine/Metabolic History: Reports: Diabetes, Type II, IDDM - Infectious Disease History Infectious Disease History: Reports: Mumps - Past Surgical History Cardiovascular Surgical History: Reports: Other (See Below) Other Cardiovascular Surgeries/Procedures: loop implant GI Surgical History: Reports: Colonoscopy Social & Family History - Family History Family Medical History: Noncontributory Endocrine/Metabolic: Reports: Diabetes, type II - Tobacco Use Smoking Status *Q: Former Smoker Used Tobacco, but Quit: Yes Month/Year Tobacco Last Used: 1949 - Caffeine Use Caffeine Use: Reports: Coffee Other Caffeine Use: every am - Recreational Drug Use Recreational Drug Use: No ED ROS GENERAL - Review of Systems Review Of Systems: See Below Constitutional: Reports: No Symptoms HEENT: Reports: No Symptoms Respiratory: Reports: Cough Cardiovascular: Reports: No Symptoms Endocrine: Reports: No Symptoms GI/Abdominal: Reports: Diarrhea. Denies: Nausea, Vomiting : Reports: No Symptoms Musculoskeletal: Reports: No Symptoms Skin: Reports: No Symptoms Neurological: Reports: Weakness Psychiatric: Reports: No Symptoms ED EXAM, GENERAL - Physical Exam Exam: See Below Exam Limited By: Altered Mental Status General Appearance: Lethargic Eye Exam: Bilateral Eye: PERRL Ears: Normal External Exam, Normal Canal Nose: Normal Inspection, Normal Mucosa Throat/Mouth: Normal Inspection, Normal Lips, Normal Teeth Head: Atraumatic, Normocephalic Neck: Normal Inspection, Supple, Non-Tender Respiratory/Chest: No Respiratory Distress, Lungs Clear, Normal Breath Sounds Cardiovascular: Normal Peripheral Pulses, Regular Rate, Rhythm, No Edema, No Gallop, No JVD, No Murmur GI/Abdominal: Other (hyperactive bowel sound) Rectal (Female) Exam: Normal Exam, Normal Rectal Tone Back Exam: Normal Inspection, Full Range of Motion Extremities: Normal Inspection, Normal Range of Motion, No Pedal Edema Psychiatric: Normal Affect Course - Vital Signs Text/Narrative:: labs reviewed and discussed with patient and her daughter and verbalized full understanding EKG-NSR CXR-neg Albuterol neb x1 D50W 50 ml Regular insulin 20 U SC NaHCO3-50 ml Calcium gluconate 1 gm IV x1 Repeat BMP didn't have much significant improvement of her labs Case discussed with Dr Brar who agreed with the above plan and to admit patient to an acute bed Last Recorded V/S: Last Vital Signs Temp 36.1 C 03/12/19 11:58 Pulse 65 03/12/19 11:58 Resp 15 03/12/19 11:58 BP 123/43 L 03/12/19 11:58 Pulse Ox 97 03/12/19 11:58 - Orders/Labs/Meds Orders: Active Orders 24 hr Category Date Time Status RT Aerosol Therapy [RC] ASDIRECTED Care 03/12/19 12:53 Active Chest 1V Frontal [CR] Stat Exams 03/12/19 14:35 Taken CULTURE URINE [RM] Stat Lab 03/12/19 14:30 Received Sodium Chloride 0.9% [Normal Saline] 1,000 ml Med 03/12/19 12:30 Active IV ASDIRECTED Sodium Chloride 0.9% [Normal Saline] 1,000 ml Med 03/12/19 14:00 Active IV ASDIRECTED Medication Orders Sodium Chloride (Normal Saline) 1,000 mls @ 999 mls/hr IV ASDIRECTED [facility] Last Admin: 03/12/19 13:00 Dose: 999 mls/hr Sodium Chloride (Normal Saline) 1,000 mls @ 125 mls/hr IV ASDIRECTED [facility] Last Admin: 03/12/19 13:54 Dose: 125 mls/hr Labs: Laboratory Tests 03/12/19 03/12/19 Range/Units 14:00 14:30 Sodium 135 (135-145) mmol/L Potassium 6.3 H* D (3.5-5.3) mmol/L Chloride 107 (100-110) mmol/L Carbon Dioxide 16 L (21-32) mmol/L BUN 64 H D (7-18) mg/dL Creatinine 2.4 H* (0.55-1.02) mg/dL Est Cr Clr Drug Dosing 13.92 mL/min Estimated GFR (MDRD) 19 L (>60) BUN/Creatinine Ratio 26.7 H (9-20) Glucose 356 H D (80-116) mg/dL Calcium 8.8 (8.6-10.2) mg/dL Urine Color Yellow (YELLOW) Urine Appearance Slightly cloudy (CLEAR) Urine pH 5.0 (5.0-6.5) Ur Specific [place] 1.020 (1.010-1.025) Urine Protein 30 H (NEGATIVE) mg/dL Urine Glucose (UA) 250 H (NORMAL) mg/dL Urine Ketones Negative (NEGATIVE) mg/dL Urine Occult Blood Moderate H (NEGATIVE) Urine Nitrite Negative (NEGATIVE) Urine Bilirubin Negative (NEGATIVE) Urine Urobilinogen Normal (NEGATIVE) mg/dL Ur Leukocyte Esterase Large H (NEGATIVE) Urine RBC 0-5 (0-5) Urine WBC 30-40 H (0-5) Ur Squamous Epith Cells Moderate H (NS,R,O) Urine Bacteria Moderate H (NS) Meds: Medications Generic Name Dose Route Start Last Admin Trade Name Freq PRN Reason Stop Dose Admin Sodium Chloride 1,000 mls @ 999 mls/hr 03/12/19 12:30 03/12/19 13:00 Normal Saline IV 999 mls/hr ASDIRECTED [facility] Administration Sodium Chloride 1,000 mls @ 125 mls/hr 03/12/19 14:00 03/12/19 13:54 Normal Saline IV 125 mls/hr ASDIRECTED [facility] Administration Discontinued Medications Generic Name Dose Route Start Last Admin Trade Name Freq PRN Reason Stop Dose Admin Albuterol 2.5 mg 03/12/19 12:50 03/12/19 13:18 Proventil Neb Soln NEB 03/12/19 12:51 2.5 mg ONETIME ONE Administration Calcium Gluconate 1 gm 03/12/19 12:50 03/12/19 13:18 Calcium Gluconate IVPUSH 03/12/19 12:51 1 gm ONETIME ONE Administration Dextrose/Water 50 ml 03/12/19 12:50 03/12/19 13:18 Dextrose 50% In Water IVPUSH 03/12/19 12:51 50 ml ONETIME ONE Administration Insulin Human Regular 20 unit 03/12/19 12:50 03/12/19 13:19 Humulin R SUBCUT 03/12/19 12:51 20 units ONETIME ONE Administration Ondansetron HCl 4 mg 03/12/19 12:25 03/12/19 13:18 Zofran IVPUSH 03/12/19 12:26 4 mg ONETIME ONE Administration Sodium Bicarbonate 50 meq 03/12/19 13:30 03/12/19 13:25 Sodium Bicarbonate 8.4% IVPUSH 03/12/19 13:31 50 meq ONETIME ONE Administration Departure - Departure Time of Disposition: 15:00 Disposition: Admitted As Inpatient 68 Condition: Good Clinical Impression: Dehydration, Acute gastroenteritis, KENJI (acute kidney injury), Hyperkalemia UTI (urinary tract infection) Qualifiers: Urinary tract infection type: acute cystitis Hematuria presence: without hematuria Qualified Code(s): N30.00 - Acute cystitis without hematuria - Discharge Information Referrals: Jayce Baig MD [Primary Care Provider] - Sepsis Event Note - Evaluation Sepsis Screening Result: No Definite Risk - Focused Exam Vital Signs: Vital Signs Temp Pulse Resp BP Pulse Ox 03/12/19 11:58 36.1 C 65 15 123/43 L 97 Date Exam was Performed: 03/12/19 Time Exam was Performed: 15:04 - My Orders Last 24 Hours: My Active Orders 03/12/19 12:30 Sodium Chloride 0.9% [Normal Saline] 1,000 ml IV ASDIRECTED 03/12/19 12:53 RT Aerosol Therapy [RC] ASDIRECTED 03/12/19 14:00 Sodium Chloride 0.9% [Normal Saline] 1,000 ml IV ASDIRECTED 03/12/19 14:30 CULTURE URINE [RM] Stat 03/12/19 14:35 Chest 1V Frontal [CR] Stat - Assessment/Plan Last 24 Hours: My Active Orders 03/12/19 12:30 Sodium Chloride 0.9% [Normal Saline] 1,000 ml IV ASDIRECTED 03/12/19 12:53 RT Aerosol Therapy [RC] ASDIRECTED 03/12/19 14:00 Sodium Chloride 0.9% [Normal Saline] 1,000 ml IV ASDIRECTED 03/12/19 14:30 CULTURE URINE [RM] Stat 01/06/20 14:35 Chest 1V Frontal [CR] Stat
[2019-03-12] MEDS ORDERED: Ondansetron 4 MG/2 ML SDV IVPUSH PRN (15:30)
--- NOTE | 2019-03-12 16:42 | CR ---
INDICATION: Cough, leukocytosis. CHEST, ONE VIEW: AP upright portable view of the chest 03/12/19 was compared with 05/17/18 and 05/22/16. Evidence of exogenous obesity is noted. The heart appears enlarged. Ventricular monitor is again present. Overlying EKG leads are noted. The aorta is tortuous with calcification in the arch. No consolidating pneumonia or effusion was identified. Pulmonary markings appear similar to the previous examination making it difficult to exclude very minimal patchy pneumonia at the lung bases. IMPRESSION: 1. ASHD, heart at the upper limits of normal in size or mildly enlarged. 2. It is difficult to entirely exclude minimal patchy bronchopneumonia at the medial lung bases. 3. Exogenous obesity. MTDD
[2019-03-12] MEDS ORDERED: Insulin Lispro 100 Unit/ML 3 ML KwikPen SUBCUT SCH (17:30)
[2019-03-12] MEDS: levETIRAcetam 250 MG Tab PO SCH (20:27)
[2019-03-12] MEDS: Donepezil 10 MG Tab PO SCH (20:27)
[2019-03-12] MEDS: Sertraline 25 MG Tab PO SCH (20:28)
[2019-03-12] MEDS: Simvastatin 10 MG Tab PO SCH (20:28)
[2019-03-12] MEDS: Enoxaparin 30 MG/0.3 ML Syringe SUBCUT SCH (20:33)
[2019-03-12] MEDS ORDERED: Insulin Glargine,Human Rec. Analog 100 Units/ML 3 ML Pen SUBCUT SCH (21:00)
[2019-03-13] MEDS: Sodium Chloride 0.9% 1,000 ML IV SCH ×3 (06:13→21:51)
[2019-03-13] MEDS ORDERED: Insulin Lispro 100 Unit/ML 3 ML KwikPen SUBCUT SCH ×2 (07:30→11:30)
[2019-03-13] MEDS: levETIRAcetam 250 MG Tab PO SCH ×2 (08:12→20:25)
--- NOTE | 2019-03-13 08:39 | PCM.HP.2 ---
H&P History of Present Illness - General Date of Service: 03/13/19 Admit Problem/Dx: Admission Diagnosis/Problem Admission Diagnosis/Problem Acute kidney injury Source of Information: Old Records History Limitations: Reports: Altered Mental Status - History of Present Illness Initial Comments - Free Text/Narative: Lucila came in with increased fatigue,decreased appetite and excessive sleeping in the last week. She also endorses diarrhea over the last 3 days. Non bloody.She has Dementia HTN,CKD,DM2,CVA and HLD - Related Data Allergies/Adverse Reactions: Allergies Allergy/AdvReac Type Severity Reaction Status Date / Time ciprofloxacin [From Cipro] Allergy Nausea and Verified 03/12/19 12:14 Vomiting ciprofloxacin HCl Allergy Nausea and Verified 03/12/19 12:14 [From Cipro] Vomiting hydrocodone Allergy Nausea and Verified 03/12/19 12:14 Vomiting hydrocortisone sod phosphate Allergy Nausea and Verified 03/12/19 12:14 [From Hydrocortone] Vomiting meperidine HCl [From Demerol] Allergy Nausea and Verified 03/12/19 12:14 Vomiting sulfamethoxazole Allergy Nausea and Verified 03/12/19 12:14 [From Septra] Vomiting trimethoprim [From Septra] Allergy Nausea and Verified 03/12/19 12:14 Vomiting Home Medications: Home Meds Simvastatin [Zocor] 10 mg PO BEDTIME 12/22/12 [History] amLODIPine [Norvasc] 10 mg PO DAILY 12/22/12 [History] Donepezil [Aricept] 10 mg PO BEDTIME 05/22/16 [History] Lisinopril [Prinivil] 40 mg PO DAILY 05/22/16 [History] Metoprolol Succinate [Toprol XL] 25 mg PO DAILY 05/22/16 [History] hydrALAZINE [Apresoline] 50 mg PO BID 05/22/16 [History] Insulin Lispro [HumaLOG] 10 unit SQ ACBREAKFAST 07/27/16 [History] Insulin Lispro [HumaLOG] 15 unit SQ ACLUNCH 07/27/16 [History] Insulin Lispro [HumaLOG] 35 unit SQ ACDINNER 07/27/16 [History] Insulin Degludec [Tresiba Flextouch U-200] 48 unit SQ BEDTIME 05/17/18 [History] Magnesium Chloride [Slow-Mag] 64 mg PO DAILY 05/17/18 [History] levETIRAcetam [Keppra] 750 mg PO BID 05/17/18 [History] Sertraline [Zoloft] 25 mg PO BEDTIME 03/12/19 [History] Past Medical History HEENT History: Reports: Cataract, Hard of Hearing, Impaired Vision, Other (See Below) Other HEENT History: lesley hearing aids Cardiovascular History: Reports: Hypertension Genitourinary History: Reports: Urinary Incontinence 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 History: Reports: Other OB/BYN History: Musculoskeletal History: Reports: Arthritis Neurological History: Reports: CVA, Other (See Below) Other Neuro History: Is on donazepril Psychiatric History: Reports: Dementia Endocrine/Metabolic History: Reports: Diabetes, Type II, IDDM Oncologic (Cancer) History: Reports: Lymphoma - Infectious Disease History Infectious Disease History: Reports: Mumps - Past Surgical History HEENT Surgical History: Reports: Cataract Surgery Cardiovascular Surgical History: Reports: Other (See Below) Other Cardiovascular Surgeries/Procedures: loop implant GI Surgical History: Reports: Colonoscopy Social & Family History - Family History Family Medical History: Noncontributory Endocrine/Metabolic: Reports: Diabetes, type II - Tobacco Use Smoking Status *Q: Former Smoker Used Tobacco, but Quit: Yes Month/Year Tobacco Last Used: - Caffeine Use Caffeine Use: Reports: Coffee Other Caffeine Use: every am - Recreational Drug Use Recreational Drug Use: No H&P Review of Systems - Review of Systems: Review Of Systems: Comprehensive ROS is negative, except as noted in HPI. Exam - Exam Exam: See Below - Vital Signs Vital Signs: Last Vital Signs Temp 98 F 03/13/19 07:46 Pulse 68 03/13/19 08:13 Resp 14 03/13/19 07:46 BP 117/50 L 03/13/19 08:13 Pulse Ox 97 03/13/19 07:46 Weight: 74.389 kg - Exam General: Alert, Oriented (x2) HEENT: PERRLA Neck: Supple Lungs: Clear to Auscultation Cardiovascular: Regular Rate GI/Abdominal Exam: Soft, Non-Tender (Female) Exam: Deferred Rectal (Female) Exam: Deferred Back Exam: Normal Inspection Extremities: Normal Inspection Skin: Warm Neurological: Cranial Nerves Intact Neuro Extensive - Mental Status: Alert Neuro Extensive - Motor, Sensory, Reflexes: CN II-XII Intact Psychiatric: Alert - Patient Data Lab Results Last 24 hrs: Laboratory Results - last 24 hr 03/12/19 03/12/19 03/12/19 Range/Units 14:00 14:30 18:24 WBC (4.5-12.0) X10-3/uL RBC (3.23-5.20) x10(6)uL Hgb (11.5-15.5) g/dL Hct (30.0-51.3) % MCV (80-96) fL MCH (27.7-33.6) pg MCHC (32.2-35.4) g/dL RDW (11.5-15.5) % Plt Count (125-369) X10(3)uL MPV (7.4-10.4) fL Neut % (Auto) (46-82) % Lymph % (Auto) (13-37) % Shannon % (Auto) (4-12) % Eos % (Auto) (1.0-5.0) % Baso % (Auto) (0-2) % Neut # (Auto) (1.6-8.3) # Lymph # (Auto) (0.6-5.0) # Shannon # (Auto) (0.0-1.3) # Eos # (Auto) (0.0-0.8) # Baso # (Auto) (0.0-0.2) # Sodium 135 (135-145) mmol/L Potassium 6.3 H* D (3.5-5.3) mmol/L Chloride 107 (100-110) mmol/L Carbon Dioxide 16 L (21-32) mmol/L BUN 64 H D (7-18) mg/dL Creatinine 2.4 H* (0.55-1.02) mg/dL Est Cr Clr Drug Dosing 13.92 mL/min Estimated GFR (MDRD) 19 L (>60) BUN/Creatinine Ratio 26.7 H (9-20) Glucose 356 H D (80-116) mg/dL POC Glucose 122 H (80-116) mg/dL Lactic Acid (0.4-2.0) mmol/L Calcium 8.8 (8.6-10.2) mg/dL Urine Color Yellow (YELLOW) Urine Appearance Slightly cloudy (CLEAR) Urine pH 5.0 (5.0-6.5) Ur Specific [place] 1.020 (1.010-1.025) Urine Protein 30 H (NEGATIVE) mg/dL Urine Glucose (UA) 250 H (NORMAL) mg/dL Urine Ketones Negative (NEGATIVE) mg/dL Urine Occult Blood Moderate H (NEGATIVE) Urine Nitrite Negative (NEGATIVE) Urine Bilirubin Negative (NEGATIVE) Urine Urobilinogen Normal (NEGATIVE) mg/dL Ur Leukocyte Esterase Large H (NEGATIVE) Urine RBC 0-5 (0-5) Urine WBC 30-40 H (0-5) Ur Squamous Epith Cells Moderate H (NS,R,O) Urine Bacteria Moderate H (NS) 03/12/19 03/12/19 03/12/19 Range/Units 19:15 19:15 20:24 WBC (4.5-12.0) X10-3/uL RBC (3.23-5.20) x10(6)uL Hgb (11.5-15.5) g/dL Hct (30.0-51.3) % MCV (80-96) fL MCH (27.7-33.6) pg MCHC (32.2-35.4) g/dL RDW (11.5-15.5) % Plt Count (125-369) X10(3)uL MPV (7.4-10.4) fL Neut % (Auto) (46-82) % Lymph % (Auto) (13-37) % Shannon % (Auto) (4-12) % Eos % (Auto) (1.0-5.0) % Baso % (Auto) (0-2) % Neut # (Auto) (1.6-8.3) # Lymph # (Auto) (0.6-5.0) # Shannon # (Auto) (0.0-1.3) # Eos # (Auto) (0.0-0.8) # Baso # (Auto) (0.0-0.2) # Sodium 141 (135-145) mmol/L Potassium 4.6 D (3.5-5.3) mmol/L Chloride 109 (100-110) mmol/L Carbon Dioxide 17 L (21-32) mmol/L BUN 62 H (7-18) mg/dL Creatinine 2.2 H* (0.55-1.02) mg/dL Est Cr Clr Drug Dosing 15.18 mL/min Estimated GFR (MDRD) 21 L (>60) BUN/Creatinine Ratio 28.2 H (9-20) Glucose 79 L D (80-116) mg/dL POC Glucose 61 L (80-116) mg/dL Lactic Acid 1.1 (0.4-2.0) mmol/L Calcium 9.0 (8.6-10.2) mg/dL Urine Color (YELLOW) Urine Appearance (CLEAR) Urine pH (5.0-6.5) Ur Specific [place] (1.010-1.025) Urine Protein (NEGATIVE) mg/dL Urine Glucose (UA) (NORMAL) mg/dL Urine Ketones (NEGATIVE) mg/dL Urine Occult Blood (NEGATIVE) Urine Nitrite (NEGATIVE) Urine Bilirubin (NEGATIVE) Urine Urobilinogen (NEGATIVE) mg/dL Ur Leukocyte Esterase (NEGATIVE) Urine RBC (0-5) Urine WBC (0-5) Ur Squamous Epith Cells (NS,R,O) Urine Bacteria (NS) 03/13/19 03/13/19 03/13/19 Range/Units 06:20 06:20 06:23 WBC 9.9 (4.5-12.0) X10-3/uL RBC 3.89 (3.23-5.20) x10(6)uL Hgb 11.4 L (11.5-15.5) g/dL Hct 33.7 (30.0-51.3) % MCV 86.5 (80-96) fL MCH 29.4 (27.7-33.6) pg MCHC 34.0 (32.2-35.4) g/dL RDW 13.1 (11.5-15.5) % Plt Count 225 (125-369) X10(3)uL MPV 8.5 (7.4-10.4) fL Neut % (Auto) 75.3 (46-82) % Lymph % (Auto) 18.6 (13-37) % Shannon % (Auto) 4.6 (4-12) % Eos % (Auto) 1 (1.0-5.0) % Baso % (Auto) 1 (0-2) % Neut # (Auto) 7.5 (1.6-8.3) # Lymph # (Auto) 1.8 (0.6-5.0) # Shannon # (Auto) 0.5 (0.0-1.3) # Eos # (Auto) 0.1 (0.0-0.8) # Baso # (Auto) 0.0 (0.0-0.2) # Sodium 141 (135-145) mmol/L Potassium 5.4 H (3.5-5.3) mmol/L Chloride 114 H D (100-110) mmol/L Carbon Dioxide 14 L (21-32) mmol/L BUN 55 H (7-18) mg/dL Creatinine 1.9 H (0.55-1.02) mg/dL Est Cr Clr Drug Dosing 17.58 mL/min Estimated GFR (MDRD) 25 L (>60) BUN/Creatinine Ratio 28.9 H (9-20) Glucose 99 (80-116) mg/dL POC Glucose 58 L (80-116) mg/dL Lactic Acid (0.4-2.0) mmol/L Calcium 8.4 L (8.6-10.2) mg/dL Urine Color (YELLOW) Urine Appearance (CLEAR) Urine pH (5.0-6.5) Ur Specific [place] (1.010-1.025) Urine Protein (NEGATIVE) mg/dL Urine Glucose (UA) (NORMAL) mg/dL Urine Ketones (NEGATIVE) mg/dL Urine Occult Blood (NEGATIVE) Urine Nitrite (NEGATIVE) Urine Bilirubin (NEGATIVE) Urine Urobilinogen (NEGATIVE) mg/dL Ur Leukocyte Esterase (NEGATIVE) Urine RBC (0-5) Urine WBC (0-5) Ur Squamous Epith Cells (NS,R,O) Urine Bacteria (NS) 03/13/19 Range/Units 07:54 WBC (4.5-12.0) X10-3/uL RBC (3.23-5.20) x10(6)uL Hgb (11.5-15.5) g/dL Hct (30.0-51.3) % MCV (80-96) fL MCH (27.7-33.6) pg MCHC (32.2-35.4) g/dL RDW (11.5-15.5) % Plt Count (125-369) X10(3)uL MPV (7.4-10.4) fL Neut % (Auto) (46-82) % Lymph % (Auto) (13-37) % Shannon % (Auto) (4-12) % Eos % (Auto) (1.0-5.0) % Baso % (Auto) (0-2) % Neut # (Auto) (1.6-8.3) # Lymph # (Auto) (0.6-5.0) # Shannon # (Auto) (0.0-1.3) # Eos # (Auto) (0.0-0.8) # Baso # (Auto) (0.0-0.2) # Sodium (135-145) mmol/L Potassium (3.5-5.3) mmol/L Chloride (100-110) mmol/L Carbon Dioxide (21-32) mmol/L BUN (7-18) mg/dL Creatinine (0.55-1.02) mg/dL Est Cr Clr Drug Dosing mL/min Estimated GFR (MDRD) (>60) BUN/Creatinine Ratio (9-20) Glucose (80-116) mg/dL POC Glucose 177 H D (80-116) mg/dL Lactic Acid (0.4-2.0) mmol/L Calcium (8.6-10.2) mg/dL Urine Color (YELLOW) Urine Appearance (CLEAR) Urine pH (5.0-6.5) Ur Specific [place] (1.010-1.025) Urine Protein (NEGATIVE) mg/dL Urine Glucose (UA) (NORMAL) mg/dL Urine Ketones (NEGATIVE) mg/dL Urine Occult Blood (NEGATIVE) Urine Nitrite (NEGATIVE) Urine Bilirubin (NEGATIVE) Urine Urobilinogen (NEGATIVE) mg/dL Ur Leukocyte Esterase (NEGATIVE) Urine RBC (0-5) Urine WBC (0-5) Ur Squamous Epith Cells (NS,R,O) Urine Bacteria (NS) Result Diagrams: 03/13/19 06:20 03/13/19 06:20 Sepsis Event Note - Evaluation Sepsis Screening Result: No Definite Risk - Focused Exam Vital Signs: Vital Signs Temp Pulse Pulse Resp BP BP Pulse Ox 03/13/19 08:13 68 117/50 L 03/13/19 07:46 98 F 68 14 117/50 L 97 03/13/19 03:32 97.6 F 63 16 112/52 L 97 03/13/19 00:00 97.6 F 59 L 18 120/54 L 97 Date Exam was Performed: 03/13/19 Time Exam was Performed: 08:49 - Problem List (1) Chronic kidney disease stage 2 SNOMED Code(s): 849705155 ICD Code: N18.2 - CHRONIC KIDNEY DISEASE, STAGE 2 (MILD) Status: Acute Current Visit: No (2) Diarrhea SNOMED Code(s): 85995163 ICD Code: R19.7 - DIARRHEA, UNSPECIFIED Status: Acute Current Visit: Yes Qualifiers: Diarrhea type: unspecified type Qualified Code(s): R19.7 - Diarrhea, unspecified (3) Polypharmacy SNOMED Code(s): 484462933 ICD Code: Z79.899 - OTHER LONGTERM (CURRENT) DRUG THERAPY Status: Acute Current Visit: Yes (4) HTN (hypertension) SNOMED Code(s): 79131162 ICD Code: I10 - ESSENTIAL (PRIMARY) HYPERTENSION Status: Acute Current Visit: Yes Qualifiers: Hypertension type: essential hypertension Qualified Code(s): I10 - Essential (primary) hypertension (5) Dehydration SNOMED Code(s): 67517513 ICD Code: E86.0 - DEHYDRATION Status: Acute Current Visit: No (6) Diabetes mellitus type 2 SNOMED Code(s): 20912472 ICD Code: E11.9 - TYPE 2 DIABETES MELLITUS WITHOUT COMPLICATIONS Status: Acute Current Visit: No (7) Palliative care status SNOMED Code(s): 351988028 ICD Code: Z51.5 - ENCOUNTER FOR PALLIATIVE CARE Status: Acute Current Visit: No (8) Weakness SNOMED Code(s): 43223456 ICD Code: R53.1 - WEAKNESS Status: Acute Current Visit: No (9) Dementia SNOMED Code(s): 22427707 ICD Code: F03.90 - UNSPECIFIED DEMENTIA WITHOUT BEHAVIORAL DISTURBANCE Status: Acute Current Visit: Yes Problem List Initiated/Reviewed/Updated: Yes Orders Last 24hrs: Active Orders 24 hr Category Date Time Status Patient Status [ADT] Routine ADT 03/12/19 15:21 Active Blood Glucose Check, Bedside [RC] 06,1130,15,20 Care 03/12/19 15:21 Active Cardiac Monitoring [RC] CONTINUOUS Care 03/12/19 15:24 Active Height and Weight [RC] DAILY Care 03/12/19 15:21 Active Intake and Output [RC] 14,23,06 Care 03/12/19 15:24 Active Oxygen Therapy [RC] PRN Care 03/12/19 15:21 Active RT Aerosol Therapy [RC] ASDIRECTED Care 03/12/19 12:53 Active Telemetry Monitoring [Cardiac Monitoring] [RC] .As Care 03/12/19 15:36 Active Directed Up With Assistance [RC] ASDIRECTED Care 03/12/19 15:21 Active VTE/DVT Education [RC] Per Unit Routine Care 03/12/19 15:21 Active Vital Signs [RC] 08,12,16,20,00,04 Care 03/12/19 15:21 Active Heart Healthy Diet [DIET] Diet 03/12/19 Dinner Ordered CULTURE BLOOD [BC] Routine Lab 03/12/19 19:15 Received CULTURE BLOOD [BC] Urgent Lab 03/12/19 19:20 Received CULTURE URINE [RM] Stat Lab 03/12/19 14:30 Received Donepezil [Aricept] Med 03/12/19 21:00 Active 10 mg PO BEDTIME Enoxaparin [Lovenox] Med 03/12/19 21:00 Active 30 mg SUBCUT Q24H Insulin Glarg,Human.Rec.Analog [LantUS Solostar] Med 03/12/19 21:00 Active 48 units SUBCUT BEDTIME Insulin Lispro [HumaLOG] Med 03/13/19 07:30 Active 10 unit SUBCUT ACBREAKFAST Insulin Lispro [HumaLOG] Med 03/13/19 11:30 Active 15 unit SUBCUT ACLUNCH Insulin Lispro [HumaLOG] Med 03/12/19 17:30 Active 35 unit SUBCUT ACDINNER Metoprolol Succinate [Toprol XL] Med 03/13/19 09:00 Active 25 mg PO DAILY Ondansetron [Zofran] Med 03/12/19 15:30 Active 4 mg IVPUSH Q4H PRN Sertraline [Zoloft] Med 03/12/19 21:00 Active 25 mg PO BEDTIME Simvastatin [Zocor] Med 03/12/19 21:00 Active 10 mg PO BEDTIME Sodium Chloride 0.9% [Normal Saline] 1,000 ml Med 03/12/19 12:30 Active IV ASDIRECTED Sodium Chloride 0.9% [Normal Saline] 1,000 ml Med 03/12/19 14:00 Active IV ASDIRECTED amLODIPine [Norvasc] Med 03/13/19 09:00 Active 10 mg PO DAILY levETIRAcetam [Keppra] Med 03/12/19 21:00 Active 750 mg PO BID Blood Culture x2 Reflex Set [OM.PC] Urgent Oth 03/12/19 19:00 Ordered Resuscitation Status Routine Resus Stat 03/12/19 15:21 Ordered Medication Orders Amlodipine Besylate (Norvasc) 10 mg PO DAILY [facility] Last Admin: 03/13/19 08:13 Dose: 10 mg Donepezil HCl (Aricept) 10 mg PO BEDTIME [facility] Last Admin: 03/12/19 20:27 Dose: 10 mg Enoxaparin Sodium (Lovenox) 30 mg SUBCUT Q24H [facility] Last Admin: 03/12/19 20:33 Dose: 30 mg Sodium Chloride (Normal Saline) 1,000 mls @ 999 mls/hr IV ASDIRECTED [facility] Last Admin: 03/12/19 13:00 Dose: 999 mls/hr Sodium Chloride (Normal Saline) 1,000 mls @ 125 mls/hr IV ASDIRECTED [facility] Last Admin: 03/13/19 06:13 Dose: 125 mls/hr Infusion: 03/13/19 05:58 Dose: 125 mls/hr Admin: 03/12/19 21:58 Dose: 125 mls/hr Infusion: 03/12/19 21:54 Dose: 125 mls/hr Admin: 03/12/19 13:54 Dose: 125 mls/hr Insulin Glargine (Lantus Solostar) 48 units SUBCUT BEDTIME [facility] Last Admin: 03/12/19 20:27 Dose: Insulin Human Lispro (Humalog) 10 unit SUBCUT ACBREAKFAST [facility] Last Admin: 03/13/19 08:11 Dose: 10 units Insulin Human Lispro (Humalog) 15 unit SUBCUT ACLUNCH [facility] Insulin Human Lispro (Humalog) 35 unit SUBCUT ACDINNER [facility] Last Admin: 03/12/19 18:28 Dose: 35 units Levetiracetam (Keppra) 750 mg PO BID [facility] Last Admin: 03/13/19 08:12 Dose: 750 mg Admin: 03/12/19 20:27 Dose: 750 mg Metoprolol Succinate (Toprol Xl) 25 mg PO DAILY [facility] Last Admin: 03/13/19 08:13 Dose: 25 mg Ondansetron HCl (Zofran) 4 mg IVPUSH Q4H PRN PRN Reason: Nausea/Vomiting Sertraline HCl (Zoloft) 25 mg PO BEDTIME [facility] Last Admin: 03/12/19 20:28 Dose: 25 mg Simvastatin (Zocor) 10 mg PO BEDTIME [facility] Last Admin: 03/12/19 20:28 Dose: 10 mg Assessment/Plan Comment:: Patient reports improved symptoms. Eating better. Will continue IVF replacement, DC antihypertensives. Consult PT/OT
[2019-03-13] MEDS ORDERED: Metoprolol Succinate 25 MG Tab.ER PO SCH (09:00)
[2019-03-13] MEDS ORDERED: amLODIPine 10 MG Tab PO SCH (09:00)
[2019-03-13] MEDS: Insulin Lispro 100 Unit/ML 3 ML KwikPen SUBCUT SCH (18:39)
[2019-03-13] MEDS: Donepezil 10 MG Tab PO SCH (20:25)
[2019-03-13] MEDS: Enoxaparin 30 MG/0.3 ML Syringe SUBCUT SCH (20:26)
[2019-03-13] MEDS: Simvastatin 10 MG Tab PO SCH (20:26)
[2019-03-13] MEDS: Sertraline 25 MG Tab PO SCH (20:26)
[2019-03-13] MEDS: Insulin Glargine,Human Rec. Analog 100 Units/ML 3 ML Pen SUBCUT SCH (20:28)
[2019-03-14] MEDS: Sodium Chloride 0.9% 1,000 ML IV SCH (06:19)
--- NOTE | 2019-03-14 08:33 | PCM.PN ---
- General Info Date of Service: 03/14/19 Subjective Update: Had 4 loose stools over night. No other complaints.Overall,feels better. Functional Status: Reports: Pain Controlled, Tolerating Diet - Review of Systems HEENT: Reports: No Symptoms Pulmonary: Reports: No Symptoms Cardiovascular: Reports: No Symptoms - Patient Data Vitals - Most Recent: Last Vital Signs Temp 97.7 F 03/13/19 23:50 Pulse 58 L 03/13/19 23:50 Resp 18 03/13/19 23:50 BP 129/63 03/13/19 23:50 Pulse Ox 98 03/13/19 23:50 Weight - Most Recent: 74.389 kg I&O - Last 24 Hours: Intake & Output 03/13/19 03/14/19 03/14/19 22:59 06:59 14:59 Output Total 1600 Balance -1600 Lab Results Last 24 Hours: Laboratory Results - last 24 hr 03/13/19 03/13/19 03/13/19 Range/Units 12:24 17:00 20:24 WBC (4.5-12.0) X10-3/uL RBC (3.23-5.20) x10(6)uL Hgb (11.5-15.5) g/dL Hct (30.0-51.3) % MCV (80-96) fL MCH (27.7-33.6) pg MCHC (32.2-35.4) g/dL RDW (11.5-15.5) % Plt Count (125-369) X10(3)uL MPV (7.4-10.4) fL Neut % (Auto) (46-82) % Lymph % (Auto) (13-37) % [place] % (Auto) (4-12) % Eos % (Auto) (1.0-5.0) % Baso % (Auto) (0-2) % Neut # (Auto) (1.6-8.3) # Lymph # (Auto) (0.6-5.0) # Sweet [place] # (Auto) (0.0-1.3) # Eos # (Auto) (0.0-0.8) # Baso # (Auto) (0.0-0.2) # Sodium (135-145) mmol/L Potassium (3.5-5.3) mmol/L Chloride (100-110) mmol/L Carbon Dioxide (21-32) mmol/L BUN (7-18) mg/dL Creatinine (0.55-1.02) mg/dL Est Cr Clr Drug Dosing mL/min Estimated GFR (MDRD) (>60) BUN/Creatinine Ratio (9-20) Glucose (80-116) mg/dL POC Glucose 168 H 53 L D 134 H D (80-116) mg/dL Calcium (8.6-10.2) mg/dL 03/14/19 03/14/19 Range/Units 06:00 06:00 WBC 7.7 (4.5-12.0) X10-3/uL RBC 3.63 (3.23-5.20) x10(6)uL Hgb 10.6 L (11.5-15.5) g/dL Hct 31.6 (30.0-51.3) % MCV 87.0 (80-96) fL MCH 29.2 (27.7-33.6) pg MCHC 33.6 (32.2-35.4) g/dL RDW 13.1 (11.5-15.5) % Plt Count 215 (125-369) X10(3)uL MPV 7.8 (7.4-10.4) fL Neut % (Auto) 69.0 (46-82) % Lymph % (Auto) 21.5 (13-37) % [place] % (Auto) 5.8 (4-12) % Eos % (Auto) 3 (1.0-5.0) % Baso % (Auto) 1 (0-2) % Neut # (Auto) 5.4 (1.6-8.3) # Lymph # (Auto) 1.7 (0.6-5.0) # Sweet [place] # (Auto) 0.4 (0.0-1.3) # Eos # (Auto) 0.2 (0.0-0.8) # Baso # (Auto) 0.0 (0.0-0.2) # Sodium 141 (135-145) mmol/L Potassium 5.2 (3.5-5.3) mmol/L Chloride 114 H (100-110) mmol/L Carbon Dioxide 17 L (21-32) mmol/L BUN 35 H D (7-18) mg/dL Creatinine 1.6 H (0.55-1.02) mg/dL Est Cr Clr Drug Dosing 20.88 mL/min Estimated GFR (MDRD) 31 L (>60) BUN/Creatinine Ratio 21.9 H (9-20) Glucose 125 H (80-116) mg/dL POC Glucose (80-116) mg/dL Calcium 8.4 L (8.6-10.2) mg/dL Bharath Results Last 24 Hours: Microbiology 03/12/19 19:15 Aerobic Blood Culture - Preliminary Blood - Venous - Lab Draw NO GROWTH AFTER 1 DAY Anaerobic Blood Culture - Preliminary NO GROWTH AFTER 1 DAY 03/12/19 19:20 Aerobic Blood Culture - Preliminary Blood - Venous NO GROWTH AFTER 1 DAY Anaerobic Blood Culture - Preliminary NO GROWTH AFTER 1 DAY 03/12/19 14:30 Urine Culture - Preliminary Urine, Bladder MIXED POSITIVE FELA DAY 1 Med Orders - Current: Current Medications Donepezil HCl (Aricept) 10 mg PO BEDTIME [facility] Last Admin: 03/13/19 20:25 Dose: 10 mg Enoxaparin Sodium (Lovenox) 30 mg SUBCUT Q24H [facility] Last Admin: 03/13/19 20:26 Dose: 30 mg Insulin Glargine (Lantus Solostar) 24 units SUBCUT BEDTIME [facility] Last Admin: 03/13/19 20:28 Dose: 24 units Insulin Human Lispro (Humalog) 10 unit SUBCUT TIDAC [facility] Last Admin: 03/13/19 18:39 Dose: Not Given Levetiracetam (Keppra) 750 mg PO BID [facility] Last Admin: 03/13/19 20:25 Dose: 750 mg Ondansetron HCl (Zofran) 4 mg IVPUSH Q4H PRN PRN Reason: Nausea/Vomiting Sertraline HCl (Zoloft) 25 mg PO BEDTIME [facility] Last Admin: 03/13/19 20:26 Dose: 25 mg Simvastatin (Zocor) 10 mg PO BEDTIME [facility] Last Admin: 03/13/19 20:26 Dose: 10 mg Discontinued Medications Albuterol (Proventil Neb Soln) 2.5 mg NEB ONETIME ONE Stop: 03/12/19 12:51 Last Admin: 03/12/19 13:18 Dose: 2.5 mg Amlodipine Besylate (Norvasc) 10 mg PO DAILY [facility] Last Admin: 03/13/19 08:13 Dose: 10 mg Calcium Gluconate (Calcium Gluconate) 1 gm IVPUSH ONETIME ONE Stop: 03/12/19 12:51 Last Admin: 03/12/19 13:18 Dose: 1 gm Dextrose/Water (Dextrose 50% In Water) 50 ml IVPUSH ONETIME ONE Stop: 03/12/19 12:51 Last Admin: 03/12/19 13:18 Dose: 50 ml Sodium Chloride (Normal Saline) 1,000 mls @ 999 mls/hr IV ASDIRECTED [facility] Last Admin: 03/12/19 13:00 Dose: 999 mls/hr Sodium Chloride (Normal Saline) 1,000 mls @ 125 mls/hr IV ASDIRECTED [facility] Last Admin: 03/14/19 06:19 Dose: 125 mls/hr Insulin Glargine (Lantus Solostar) 48 units SUBCUT BEDTIME [facility] Last Admin: 03/12/19 20:27 Dose: Not Given Insulin Human Lispro (Humalog) 10 unit SUBCUT ACBREAKFAST [facility] Last Admin: 03/13/19 08:11 Dose: 10 units Insulin Human Lispro (Humalog) 15 unit SUBCUT ACLUNCH [facility] Last Admin: 03/13/19 12:30 Dose: 15 units Insulin Human Lispro (Humalog) 35 unit SUBCUT ACDINNER [facility] Last Admin: 03/12/19 18:28 Dose: 35 units Insulin Human Regular (Humulin R) 20 unit SUBCUT ONETIME ONE Stop: 03/12/19 12:51 Last Admin: 03/12/19 13:19 Dose: 20 units Metoprolol Succinate (Toprol Xl) 25 mg PO DAILY [facility] Last Admin: 03/13/19 08:13 Dose: 25 mg Ondansetron HCl (Zofran) 4 mg IVPUSH ONETIME ONE Stop: 03/12/19 12:26 Last Admin: 03/12/19 13:18 Dose: 4 mg Sodium Bicarbonate (Sodium Bicarbonate 8.4%) 50 meq IVPUSH ONETIME ONE Stop: 03/12/19 13:31 Last Admin: 03/12/19 13:25 Dose: 50 meq - Exam General: Alert Neck: Supple Lungs: Clear to Auscultation Cardiovascular: Regular Rate GI/Abdominal Exam: Normal Bowel Sounds, Soft. No: Distended Back Exam: Normal Inspection Sepsis Event Note - Evaluation Sepsis Screening Result: No Definite Risk - Focused Exam Vital Signs: Vital Signs Temp Pulse Resp BP Pulse Ox 03/13/19 23:50 97.7 F 58 L 18 129/63 98 Date Exam was Performed: 03/14/19 Time Exam was Performed: 08:31 - Problem List & Annotations (1) Diarrhea SNOMED Code(s): 37822442 Code(s): R19.7 - DIARRHEA, UNSPECIFIED Status: Acute Current Visit: Yes Qualifiers: Diarrhea type: unspecified type Qualified Code(s): R19.7 - Diarrhea, unspecified (2) Chronic kidney disease stage 2 SNOMED Code(s): 183526794 Code(s): N18.2 - CHRONIC KIDNEY DISEASE, STAGE 2 (MILD) Status: Acute Current Visit: No (3) Polypharmacy SNOMED Code(s): 651216067 Code(s): Z79.899 - OTHER DATA RECOVERY PLANNER (CURRENT) DRUG THERAPY Status: Acute Current Visit: Yes (4) HTN (hypertension) SNOMED Code(s): 40145301 Code(s): I10 - ESSENTIAL (PRIMARY) HYPERTENSION Status: Acute Current Visit: Yes Qualifiers: Hypertension type: essential hypertension Qualified Code(s): I10 - Essential (primary) hypertension (5) Dehydration SNOMED Code(s): 84640902 Code(s): E86.0 - DEHYDRATION Status: Acute Current Visit: No (6) Diabetes mellitus type 2 SNOMED Code(s): 33767793 Code(s): E11.9 - TYPE 2 DIABETES MELLITUS WITHOUT COMPLICATIONS Status: Acute Current Visit: No (7) Palliative care status SNOMED Code(s): 478160035 Code(s): Z51.5 - ENCOUNTER FOR PALLIATIVE CARE Status: Acute Current Visit: No (8) Weakness SNOMED Code(s): 40415751 Code(s): R53.1 - WEAKNESS Status: Acute Current Visit: No (9) Dementia SNOMED Code(s): 32006647 Code(s): F03.90 - UNSPECIFIED DEMENTIA WITHOUT BEHAVIORAL DISTURBANCE Status: Acute Current Visit: Yes Qualifiers: Dementia type: Alzheimer's disease - Problem List Review Problem List Initiated/Reviewed/Updated: Yes - My Orders Last 24 Hours: My Active Orders 03/13/19 08:46 OT Evaluation and Treatment [CONS] Routine PT Evaluation and Treatment [CONS] Routine 03/13/19 08:47 Vital Signs [RC] Q8H 03/13/19 21:00 Insulin Glarg,Human.Rec.Analog [LantUS Solostar] 24 units SUBCUT BEDTIME 03/14/19 08:27 C DIFFICILE AG/TOXIN W/REFLEX [RM] Stat - Plan Plan:: Patient reports improved symptoms. Eating better. DC IV fluids. Check C diff. PT /OT. Possible DC in AM
[2019-03-14] MEDS ORDERED: Sodium Chloride 0.9% 10 ML Syringe FLUSH PRN (10:00)
[2019-03-14] MEDS: Insulin Lispro 100 Unit/ML 3 ML KwikPen SUBCUT SCH ×3 (11:00→18:06)
[2019-03-14] MEDS: levETIRAcetam 250 MG Tab PO SCH ×2 (11:27→20:50)
[2019-03-14] MEDS: Donepezil 10 MG Tab PO SCH (20:50)
[2019-03-14] MEDS: Enoxaparin 30 MG/0.3 ML Syringe SUBCUT SCH (20:52)
[2019-03-14] MEDS: Sertraline 25 MG Tab PO SCH (20:53)
[2019-03-14] MEDS: Simvastatin 10 MG Tab PO SCH (20:53)
[2019-03-14] MEDS: Insulin Glargine,Human Rec. Analog 100 Units/ML 3 ML Pen SUBCUT SCH (22:00)
[2019-03-15] MEDS: Insulin Lispro 100 Unit/ML 3 ML KwikPen SUBCUT SCH ×3 (09:15→18:03)
[2019-03-15] MEDS: levETIRAcetam 250 MG Tab PO SCH ×2 (09:16→20:48)
--- NOTE | 2019-03-15 09:22 | PCM.PN ---
- General Info Date of Service: 03/15/19 Subjective Update: Lucila has been refusing to eat the last day. Also she complains of epigastric/ right upper quadrant pain.She has been weak today. Diarrhea has improved. Functional Status: Reports: Pain Controlled - Review of Systems General: Reports: Weakness HEENT: Reports: No Symptoms Pulmonary: Reports: No Symptoms Cardiovascular: Reports: No Symptoms Gastrointestinal: Reports: Abdominal Pain Skin: Reports: No Symptoms Neurological: Reports: No Symptoms - Patient Data Vitals - Most Recent: Last Vital Signs Temp 98 F 03/15/19 01:30 Pulse 80 03/15/19 01:30 Resp 18 03/15/19 01:30 BP 136/57 L 03/15/19 01:30 Pulse Ox 98 03/15/19 01:30 Weight - Most Recent: 71.123 kg I&O - Last 24 Hours: Intake & Output 03/14/19 03/15/19 03/15/19 22:59 06:59 14:59 Intake Total 100 10 Output Total 600 600 Balance -500 -600 10 Lab Results Last 24 Hours: Laboratory Results - last 24 hr 03/14/19 03/14/19 03/14/19 Range/Units 11:30 17:28 21:21 POC Glucose 138 H 147 H 123 H (80-116) mg/dL 03/15/19 Range/Units 07:05 POC Glucose 120 H (80-116) mg/dL Bharath Results Last 24 Hours: Microbiology 03/12/19 19:15 Aerobic Blood Culture - Preliminary Blood - Venous - Lab Draw NO GROWTH AFTER 2 DAYS Anaerobic Blood Culture - Preliminary NO GROWTH AFTER 2 DAYS 03/12/19 14:30 Urine Culture - Final Urine, Bladder MIXED POSITIVE FELA DAY 2 03/12/19 19:20 Aerobic Blood Culture - Preliminary Blood - Venous NO GROWTH AFTER 2 DAYS Anaerobic Blood Culture - Preliminary NO GROWTH AFTER 2 DAYS 03/14/19 13:30 C. difficile Antigen & Toxins A,B - Final Stool / Feces Med Orders - Current: Current Medications Donepezil HCl (Aricept) 10 mg PO BEDTIME [facility] Last Admin: 03/14/19 20:50 Dose: 10 mg Enoxaparin Sodium (Lovenox) 30 mg SUBCUT Q24H [facility] Last Admin: 03/14/19 20:52 Dose: 30 mg Insulin Glargine (Lantus Solostar) 24 units SUBCUT BEDTIME [facility] Last Admin: 03/14/19 22:00 Dose: Not Given Insulin Human Lispro (Humalog) 10 unit SUBCUT TIDAC [facility] Last Admin: 03/15/19 09:15 Dose: Not Given Levetiracetam (Keppra) 750 mg PO BID [facility] Last Admin: 03/15/19 09:16 Dose: 750 mg Ondansetron HCl (Zofran) 4 mg IVPUSH Q4H PRN PRN Reason: Nausea/Vomiting Sertraline HCl (Zoloft) 25 mg PO BEDTIME [facility] Last Admin: 03/14/19 20:53 Dose: 25 mg Simvastatin (Zocor) 10 mg PO BEDTIME [facility] Last Admin: 03/14/19 20:53 Dose: 10 mg Sodium Chloride (Saline Flush) 10 ml FLUSH ASDIRECTED PRN PRN Reason: Keep Vein Open Last Admin: 03/14/19 11:31 Dose: 10 ml Discontinued Medications Albuterol (Proventil Neb Soln) 2.5 mg NEB ONETIME ONE Stop: 03/12/19 12:51 Last Admin: 03/12/19 13:18 Dose: 2.5 mg Amlodipine Besylate (Norvasc) 10 mg PO DAILY [facility] Last Admin: 03/13/19 08:13 Dose: 10 mg Calcium Gluconate (Calcium Gluconate) 1 gm IVPUSH ONETIME ONE Stop: 03/12/19 12:51 Last Admin: 03/12/19 13:18 Dose: 1 gm Dextrose/Water (Dextrose 50% In Water) 50 ml IVPUSH ONETIME ONE Stop: 03/12/19 12:51 Last Admin: 03/12/19 13:18 Dose: 50 ml Sodium Chloride (Normal Saline) 1,000 mls @ 999 mls/hr IV ASDIRECTED [facility] Last Admin: 03/12/19 13:00 Dose: 999 mls/hr Sodium Chloride (Normal Saline) 1,000 mls @ 125 mls/hr IV ASDIRECTED [facility] Last Admin: 03/14/19 06:19 Dose: 125 mls/hr Insulin Glargine (Lantus Solostar) 48 units SUBCUT BEDTIME [facility] Last Admin: 03/12/19 20:27 Dose: Not Given Insulin Human Lispro (Humalog) 10 unit SUBCUT ACBREAKFAST [facility] Last Admin: 03/13/19 08:11 Dose: 10 units Insulin Human Lispro (Humalog) 15 unit SUBCUT ACLUNCH [facility] Last Admin: 03/13/19 12:30 Dose: 15 units Insulin Human Lispro (Humalog) 35 unit SUBCUT ACDINNER [facility] Last Admin: 03/12/19 18:28 Dose: 35 units Insulin Human Regular (Humulin R) 20 unit SUBCUT ONETIME ONE Stop: 03/12/19 12:51 Last Admin: 03/12/19 13:19 Dose: 20 units Metoprolol Succinate (Toprol Xl) 25 mg PO DAILY [facility] Last Admin: 03/13/19 08:13 Dose: 25 mg Ondansetron HCl (Zofran) 4 mg IVPUSH ONETIME ONE Stop: 03/12/19 12:26 Last Admin: 03/12/19 13:18 Dose: 4 mg Sodium Bicarbonate (Sodium Bicarbonate 8.4%) 50 meq IVPUSH ONETIME ONE Stop: 03/12/19 13:31 Last Admin: 03/12/19 13:25 Dose: 50 meq - Exam General: Alert Neck: Supple Lungs: Clear to Auscultation Cardiovascular: Regular Rate GI/Abdominal Exam: Distended, Rebound Back Exam: Normal Inspection Extremities: Normal Inspection Skin: Warm Psy/Mental Status: Alert Sepsis Event Note - Evaluation Sepsis Screening Result: No Definite Risk - Focused Exam Vital Signs: Vital Signs Temp Pulse Resp BP Pulse Ox 03/15/19 01:30 98 F 80 18 136/57 L 98 Date Exam was Performed: 03/15/19 Time Exam was Performed: 11:02 - Problem List & Annotations (1) Weakness SNOMED Code(s): 81043525 Code(s): R53.1 - WEAKNESS Status: Acute Current Visit: No (2) Diarrhea SNOMED Code(s): 38671928 Code(s): R19.7 - DIARRHEA, UNSPECIFIED Status: Acute Current Visit: Yes Qualifiers: Diarrhea type: unspecified type Qualified Code(s): R19.7 - Diarrhea, unspecified (3) Chronic kidney disease stage 2 SNOMED Code(s): 970775498 Code(s): N18.2 - CHRONIC KIDNEY DISEASE, STAGE 2 (MILD) Status: Acute Current Visit: No (4) Polypharmacy SNOMED Code(s): 198027107 Code(s): Z79.899 - OTHER MOTION 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 (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) DRUG THERAPY Status: Acute Current Visit: Yes (5) HTN (hypertension) SNOMED Code(s): 81448563 Code(s): I10 - ESSENTIAL (PRIMARY) HYPERTENSION Status: Acute Current Visit: Yes Qualifiers: Hypertension type: essential hypertension Qualified Code(s): I10 - Essential (primary) hypertension (6) Dehydration SNOMED Code(s): 40326634 Code(s): E86.0 - DEHYDRATION Status: Acute Current Visit: No (7) Diabetes mellitus type 2 SNOMED Code(s): 00655009 Code(s): E11.9 - TYPE 2 DIABETES MELLITUS WITHOUT COMPLICATIONS Status: Chronic Current Visit: No (8) Palliative care status SNOMED Code(s): 262931082 Code(s): Z51.5 - ENCOUNTER FOR PALLIATIVE CARE Status: Acute Current Visit: No (9) Dementia SNOMED Code(s): 16860936 Code(s): F03.90 - UNSPECIFIED DEMENTIA WITHOUT BEHAVIORAL DISTURBANCE Status: Acute Current Visit: Yes Qualifiers: Dementia type: Alzheimer's disease - Problem List Review Problem List Initiated/Reviewed/Updated: Yes - My Orders Last 24 Hours: My Active Orders 03/14/19 10:00 Sodium Chloride 0.9% [Saline Flush] 10 ml FLUSH ASDIRECTED PRN 03/15/19 09:20 Gallbladder [Abdomen Ltd] [US] Routine 03/16/19 05:11 BASIC METABOLIC PANEL,BMP [CHEM] AM CBC WITH AUTO DIFF [HEME] AM 03/16/19 06:00 Pantoprazole [ProTONIX] 40 mg PO 0600 - Plan Plan:: The family are interested in options of placement ,including Swing b ed admission for strengthening. I have therefore asked a reevaluation by ANA ROSA,and consult with manager social media.I will obtain an US of the RUQ to determine etiology of pain,start PPI,and repeat Labs in AM.
[2019-03-15] MEDS: Pantoprazole 40 MG Tab.CR PO SCH (14:26)
--- NOTE | 2019-03-15 16:40 | US ---
INDICATION: Right upper quadrant abdominal pain. RIGHT UPPER QUADRANT/GALLBLADDER ULTRASOUND: Multiple ultrasonic images were obtained 03/15/19 and was compared with 12/22/12. There are again noted multiple calculi in the gallbladder which appear to be slightly increased somewhat having the appearance for the most part of gravel. They are moveable and do shadow. The gallbladder measured 5.5 x 2.8 x 2.5 cm with negative ultrasonic Anderson sign, and no pericholecystic fluid. There was an appearance suggesting [id number] thickening of the gallbladder wall which may represent chronic cholecystitis. The liver was prominent in size measuring 17.6 cm but appeared otherwise fairly normal. No intrahepatic biliary tree dilatation was seen. Common bile duct was normal in caliber at 5.1 mm. The pancreas appeared normal as visualized with the tail not ideally visualized due to intestinal gas. The IVC and aorta were not evaluated. No mass lesions or free fluid collections were identified. The right kidney measures 9.8 x 3.9 x 4.3 cm with some irregularity of the renal cortex suggesting a mild degree of renal cortical scarring. IMPRESSION: 1. Cholelithiasis with possibility of a mild degree of chronic cholecystitis. 2. Mild hepatomegaly. 3. Renal cortical scarring. MTDD
[2019-03-15] MEDS: Donepezil 10 MG Tab PO SCH (20:47)
[2019-03-15] MEDS: Simvastatin 10 MG Tab PO SCH (20:48)
[2019-03-15] MEDS: Enoxaparin 30 MG/0.3 ML Syringe SUBCUT SCH (20:48)
[2019-03-15] MEDS: Sertraline 25 MG Tab PO SCH (20:49)
[2019-03-15] MEDS: Insulin Glargine,Human Rec. Analog 100 Units/ML 3 ML Pen SUBCUT SCH (21:40)
[2019-03-16] MEDS: Pantoprazole 40 MG Tab.CR PO SCH (05:55)
[2019-03-16] MEDS: Insulin Lispro 100 Unit/ML 3 ML KwikPen SUBCUT SCH ×2 (07:55→11:33)
[2019-03-16] MEDS: levETIRAcetam 250 MG Tab PO SCH (07:59)
[2019-03-16 10:44] VITALS: BP 126/74; PULSE 74
--- NOTE | 2019-03-16 12:24 | CONS ---
DATE OF CONSULTATION: 03/16/2019 HISTORY OF PRESENT ILLNESS: This 88-year-old female is seen in consultation from Dr. Maldonado for evaluation of cholelithiasis and possible cholecystitis. The patient was admitted to the hospital a few days ago with nausea, diarrhea, dehydration. Yesterday, she was complaining of some right upper abdominal pain and a gallbladder ultrasound was obtained which showed cholelithiasis and some mild to moderate wall thickening. There was no Anderson sign. There is no pericholecystic fluid. In reviewing her records, she has known cholelithiasis since at least 2012. During her recent hospitalization, her liver function tests have been normal. WBC is normal today. She has not had any recent fevers. In reviewing the history with the patient and her two daughters, she has had some periodic abdominal pain where she lives at assisted living with her but not localized. She has not had nausea or vomiting. She does not notice any specific foods that bother her. PAST MEDICAL HISTORY: Reviewed. MEDICATIONS: Reviewed. MEDICAL ALLERGIES: Reviewed. REVIEW OF SYSTEMS: The patient denies chest pain, shortness of breath, or respiratory difficulties. Diarrhea has subsided. She denies any nausea. Denies any urinary symptoms. Denies fever, sweats, or chills. Denies jaundice, dark urine, or hari-colored stools. PHYSICAL EXAMINATION: GENERAL: Reveals a pleasant elderly lady in no acute distress. She is able to ambulate from the chair to her bed with minimal assistance. EYES: Her sclerae are white. SKIN: Not jaundiced. ABDOMEN: Soft and nontender other than some very minimal tenderness in the left lower quadrant. I do not feel any masses or hernias. ASSESSMENT: Cholelithiasis. PLAN: At this time, I do not feel that her gallstones are symptomatic nor is there any strong evidence of cholecystitis that would warrant surgery. I recommend that we continue to monitor, and if she develops symptoms, the issue can be revisited. The patient and her family are satisfied with the recommendation. /[id number] ALEXA/ROSALBA THAKUR
--- NOTE | 2019-03-16 13:16 | PCM.DCSUM1 ---
Discharge Summary - Hospital Course HPI Initial Comments: Lucila came in with increased fatigue,decreased appetite and excessive sleeping in the last week. She also endorses diarrhea over the last 3 days. Non bloody.She has Dementia HTN, CKD, DM2, CVA and HLD Diagnosis: Stroke: No - Discharge Data Discharge Date: 03/16/19 Discharge Disposition: Home, W Home Health Agency 06 Condition: Stable - Referral to Home Health Date of Face to Face Encounter: 03/16/19 Reason for Homebound Status: dementia Primary Care Physician: Jayce Baig MD Skilled Need: PT/OT - Discharge Diagnosis/Problem(s) (1) KENJI (acute kidney injury) SNOMED Code(s): 70941318, 84933497 ICD Code: N17.9 - ACUTE KIDNEY FAILURE, UNSPECIFIED Status: Resolved Current Visit: Yes (2) Acute gastroenteritis SNOMED Code(s): 93279545 ICD Code: K52.9 - NONINFECTIVE GASTROENTERITIS AND COLITIS, UNSPECIFIED Status: Resolved Current Visit: Yes (3) Dehydration SNOMED Code(s): 48849460 ICD Code: E86.0 - DEHYDRATION Status: Resolved Current Visit: Yes (4) Dementia SNOMED Code(s): 80014678 ICD Code: F03.90 - UNSPECIFIED DEMENTIA WITHOUT BEHAVIORAL DISTURBANCE Status: Chronic Current Visit: Yes Qualifiers: Dementia type: Alzheimer's disease (5) HTN (hypertension) SNOMED Code(s): 84130297 ICD Code: I10 - ESSENTIAL (PRIMARY) HYPERTENSION Status: Chronic Current Visit: Yes Problem Details: hold medications as she is well controlled, recheck in 1 week with PCP to make sure she does not need to restart any of her medications. Qualifiers: Hypertension type: essential hypertension Qualified Code(s): I10 - Essential (primary) hypertension (6) Chronic kidney disease stage 2 SNOMED Code(s): 013872663 ICD Code: N18.2 - CHRONIC KIDNEY DISEASE, STAGE 2 (MILD) Status: Acute Current Visit: No (7) Palliative care status SNOMED Code(s): 747646070 ICD Code: Z51.5 - ENCOUNTER FOR PALLIATIVE CARE Status: Acute Current Visit: No (8) Diabetes mellitus type 2 SNOMED Code(s): 81917588 ICD Code: E11.9 - TYPE 2 DIABETES MELLITUS WITHOUT COMPLICATIONS Status: Chronic Current Visit: No Problem Details: Decreased dose of Tresiba 24 units daily and changed dose of Novolog to 10 units tid with meals. (9) Chronic cholecystitis with calculus SNOMED Code(s): 60202042 ICD Code: K80.10 - CALCULUS OF GALLBLADDER W CHRONIC CHOLECYST W/O OBSTRUCTION Status: Chronic Current Visit: Yes Onset Date: 2012 - Patient Summary/Data Consults: Consultations 03/13/19 08:46 OT Evaluation and Treatment [CONS] Routine Please Evaluate and Treat. OT Reason for Consult: ADL's This query below is only for informational purposes and is not editable. Admission Diagnosis/Problem: Acute kidney injury PT Evaluation and Treatment [CONS] Routine Please Evaluate and Treat. PT Reason for Consult: Ambulation This query below is only for informational purposes and is not editable. Admission Diagnosis/Problem: Acute kidney injury 03/16/19 10:57 Consult to Physician [CONS] Routine Consulting Provider: Delta Borjasesy Call Completed to Consulting Physician: Yes Reason for Consult: cholelithasis Hospital Course: She received IV fluids for dehydration secondary to diarrhea these were discontinued with correction of fluid status. She had a few low blood sugars in 50s and 60s the first few days of admission so her Lantus(formulary substitution for home Tresiba) was decreased to 24 units daily and her meal time Humalog(substitute for home Novolog) was changed to 10 units TID with meals. Her blood sugars were well controlled at these doses. Averaging 120s, high 140 and today 108. Labs and blood cultures did not show any source of infection, C. Diff negative and urine culture was normal joe. Also on admission she was hypotensive and all her blood pressures medications have been withheld. Even with discontinuation of IV fluids her blood pressures have been controlled, today 110/62. She was complaining of RUQ pain on 03/15, abdominal ultrasound was done, showed cholelithiasis with gallbladder wall thickening, this is chronic back to 2012. Dr Borjas was consulted at family request, he recommended monitoring since this was not acute(see his consult report for details). Will be discharged back to [facility] with [facility] and continued medication administration by staff. - Patient Instructions Diet: Regular Diet as Tolerated Notify Provider of: Fever, Increased Pain, Nausea and/or Vomiting Other/Special Instructions: Follow up with Dr Baig or Babatunde Smith PA-C in 1 week to recheck blood pressures and blood sugars. - Discharge Plan *PRESCRIPTION DRUG MONITORING PROGRAM REVIEWED*: No *COPY OF PRESCRIPTION DRUG MONITORING REPORT IN PATIENT ELISABETH: No Prescriptions/Med Rec: Insulin Aspart [NovoLOG] 10 unit SQ TIDAC 30 Days #1 box Insulin Degludec [Tresiba Flextouch U-200] 24 unit SQ BEDTIME 30 Days #1 box Home Medications: Home Meds Simvastatin [Zocor] 10 mg PO BEDTIME 12/22/12 [History] Donepezil [Aricept] 10 mg PO BEDTIME 05/22/16 [History] levETIRAcetam [Keppra] 750 mg PO BID 05/17/18 [History] Sertraline [Zoloft] 25 mg PO BEDTIME 03/12/19 [History] Insulin Aspart [NovoLOG] 10 unit SQ TIDAC 30 Days #1 box 03/16/19 [Rx] Insulin Degludec [Tresiba Flextouch U-200] 24 unit SQ BEDTIME 30 Days #1 box 12/24 [Rx] Forms: ED Department Discharge Referrals: Jayce Baig MD [Primary Care Provider] - - Discharge Summary/Plan Comment DC Time >30 min.: Yes - General Info Date of Service: 03/16/19 Subjective Update: Patient ate some of her breakfast this morning but family states she usually doesn't eat much for breakfast. No specific abdominal complaints today. No diarrhea. Functional Status: Reports: Pain Controlled, Tolerating Diet - Patient Data Vitals - Most Recent: Last Vital Signs Temp 99.1 F 03/16/19 08:00 Pulse 74 03/16/19 08:00 Resp 16 03/16/19 08:00 BP 126/74 03/16/19 08:00 Pulse Ox 99 03/16/19 08:00 Weight - Most Recent: 156 lb 6 oz I&O - Last 24 hours: Intake & Output 03/15/19 03/16/19 03/16/19 22:59 06:59 14:59 Intake Total 150 Output Total 300 Balance -150 Lab Results - Last 24 hrs: Laboratory Results - last 24 hr 03/15/19 03/15/19 03/16/19 Range/Units 17:46 21:35 06:16 WBC (4.5-12.0) X10-3/uL RBC (3.23-5.20) x10(6)uL Hgb (11.5-15.5) g/dL Hct (30.0-51.3) % MCV (80-96) fL MCH (27.7-33.6) pg MCHC (32.2-35.4) g/dL RDW (11.5-15.5) % Plt Count (125-369) X10(3)uL MPV (7.4-10.4) fL Neut % (Auto) (46-82) % Lymph % (Auto) (13-37) % [place] % (Auto) (4-12) % Eos % (Auto) (1.0-5.0) % Baso % (Auto) (0-2) % Neut # (Auto) (1.6-8.3) # Lymph # (Auto) (0.6-5.0) # [place] # (Auto) (0.0-1.3) # Eos # (Auto) (0.0-0.8) # Baso # (Auto) (0.0-0.2) # Sodium (135-145) mmol/L Potassium (3.5-5.3) mmol/L Chloride (100-110) mmol/L Carbon Dioxide (21-32) mmol/L BUN (7-18) mg/dL Creatinine (0.55-1.02) mg/dL Est Cr Clr Drug Dosing mL/min Estimated GFR (MDRD) (>60) BUN/Creatinine Ratio (9-20) Glucose (80-116) mg/dL POC Glucose 125 H D 104 108 (80-116) mg/dL Calcium (8.6-10.2) mg/dL 03/16/19 03/16/19 Range/Units 06:25 06:25 WBC 7.6 (4.5-12.0) X10-3/uL RBC 3.79 (3.23-5.20) x10(6)uL Hgb 11.1 L (11.5-15.5) g/dL Hct 33.0 (30.0-51.3) % MCV 86.9 (80-96) fL MCH 29.2 (27.7-33.6) pg MCHC 33.6 (32.2-35.4) g/dL RDW 12.8 (11.5-15.5) % Plt Count 193 (125-369) X10(3)uL MPV 8.6 (7.4-10.4) fL Neut % (Auto) 64.9 (46-82) % Lymph % (Auto) 24.5 (13-37) % [place] % (Auto) 8.1 (4-12) % Eos % (Auto) 2 (1.0-5.0) % Baso % (Auto) 1 (0-2) % Neut # (Auto) 4.9 (1.6-8.3) # Lymph # (Auto) 1.9 (0.6-5.0) # [place] # (Auto) 0.6 (0.0-1.3) # Eos # (Auto) 0.1 (0.0-0.8) # Baso # (Auto) 0.1 (0.0-0.2) # Sodium 140 (135-145) mmol/L Potassium 5.2 (3.5-5.3) mmol/L Chloride 111 H (100-110) mmol/L Carbon Dioxide 18 L (21-32) mmol/L BUN 25 H D (7-18) mg/dL Creatinine 1.6 H (0.55-1.02) mg/dL Est Cr Clr Drug Dosing 20.88 mL/min Estimated GFR (MDRD) 31 L (>60) BUN/Creatinine Ratio 15.6 (9-20) Glucose 120 H (80-116) mg/dL POC Glucose (80-116) mg/dL Calcium 8.8 (8.6-10.2) mg/dL ARASH Results - Last 24 hrs: Microbiology 03/12/19 19:20 Aerobic Blood Culture - Preliminary Blood - Venous NO GROWTH AFTER 3 DAYS Anaerobic Blood Culture - Preliminary NO GROWTH AFTER 3 DAYS 03/12/19 19:15 Aerobic Blood Culture - Preliminary Blood - Venous - Lab Draw NO GROWTH AFTER 3 DAYS Anaerobic Blood Culture - Preliminary NO GROWTH AFTER 3 DAYS Med Orders - Current: Current Medications Donepezil HCl (Aricept) 10 mg PO BEDTIME FORMERLY [facility], [facility] Last Admin: 03/15/19 20:47 Dose: 10 mg Enoxaparin Sodium (Lovenox) 30 mg SUBCUT Q24H [facility], [facility] Last Admin: 03/15/19 20:48 Dose: 30 mg Insulin Glargine (Lantus Solostar) 24 units SUBCUT BEDTIME FOR[facility], [facility] Last Admin: 03/15/19 21:40 Dose: Not Given Insulin Human Lispro (Humalog) 10 unit SUBCUT TIDAC [facility], [facility] Last Admin: 03/16/19 11:33 Dose: 10 units Levetiracetam (Keppra) 750 mg PO BID [facility], [facility] Last Admin: 03/16/19 07:59 Dose: 750 mg Ondansetron HCl (Zofran) 4 mg IVPUSH Q4H PRN PRN Reason: Nausea/Vomiting Pantoprazole Sodium (Protonix) 40 mg PO 0600 [facility], [facility] Last Admin: 03/16/19 05:55 Dose: 40 mg Sertraline HCl (Zoloft) 25 mg PO BEDTIME [facility], [facility] Last Admin: 03/15/19 20:49 Dose: 25 mg Simvastatin (Zocor) 10 mg PO BEDTIME [facility] Last Admin: 03/15/19 20:48 Dose: 10 mg Sodium Chloride (Saline Flush) 10 ml FLUSH ASDIRECTED PRN PRN Reason: Keep Vein Open Last Admin: 03/14/19 11:31 Dose: 10 ml Discontinued Medications Albuterol (Proventil Neb Soln) 2.5 mg NEB ONETIME ONE Stop: 03/12/19 12:51 Last Admin: 03/12/19 13:18 Dose: 2.5 mg Amlodipine Besylate (Norvasc) 10 mg PO DAILY [facility] Last Admin: 03/13/19 08:13 Dose: 10 mg Calcium Gluconate (Calcium Gluconate) 1 gm IVPUSH ONETIME ONE Stop: 03/12/19 12:51 Last Admin: 03/12/19 13:18 Dose: 1 gm Dextrose/Water (Dextrose 50% In Water) 50 ml IVPUSH ONETIME ONE Stop: 03/12/19 12:51 Last Admin: 03/12/19 13:18 Dose: 50 ml Sodium Chloride (Normal Saline) 1,000 mls @ 999 mls/hr IV ASDIRECTED [facility], [facility] Last Admin: 03/12/19 13:00 Dose: 999 mls/hr Sodium Chloride (Normal Saline) 1,000 mls @ 125 mls/hr IV ASDIRECTED [facility], [facility] Last Admin: 03/14/19 06:19 Dose: 125 mls/hr Insulin Glargine (Lantus Solostar) 48 units SUBCUT BEDTIME [facility], [facility] Last Admin: 03/12/19 20:27 Dose: Not Given Insulin Human Lispro (Humalog) 10 unit SUBCUT ACBREAKFAST [facility], [facility] Last Admin: 03/13/19 08:11 Dose: 10 units Insulin Human Lispro (Humalog) 15 unit SUBCUT ACLUNCH [facility] Last Admin: 03/13/19 12:30 Dose: 15 units Insulin Human Lispro (Humalog) 35 unit SUBCUT ACDINNER [facility] Last Admin: 03/12/19 18:28 Dose: 35 units Insulin Human Regular (Humulin R) 20 unit SUBCUT ONETIME ONE Stop: 03/12/19 12:51 Last Admin: 03/12/19 13:19 Dose: 20 units Metoprolol Succinate (Toprol Xl) 25 mg PO DAILY [facility] Last Admin: 03/13/19 08:13 Dose: 25 mg Ondansetron HCl (Zofran) 4 mg IVPUSH ONETIME ONE Stop: 03/12/19 12:26 Last Admin: 03/12/19 13:18 Dose: 4 mg Sodium Bicarbonate (Sodium Bicarbonate 8.4%) 50 meq IVPUSH ONETIME ONE Stop: 03/12/19 13:31 Last Admin: 03/12/19 13:25 Dose: 50 meq - Exam General: Reports: Alert, Oriented (person, pleasantly confused.), Cooperative, No Acute Distress Lungs: Reports: Clear to Auscultation, Normal Respiratory Effort Cardiovascular: Reports: Regular Rate, Regular Rhythm GI/Abdominal Exam: Normal Bowel Sounds, Soft, No Distention, Tender (minimal RUQ ) Extremities: No Pedal Edema Skin: Reports: Warm, Dry, Intact Psy/Mental Status: Reports: Alert
== END 2019-03-16 14:23 | disposition home health service (06) | DRG 683 ==
LOC: FB.ED 11:58 → FB.MS 15:21
PROVIDERS: ADMIT Emergency Medicine; ATTEND Family Medicine
DX: N17.9 Acute kidney failure, unspecified (principal); K80.10 Calculus of gallbladder with chronic cholecystitis without obstruction; N30.00 Acute cystitis without hematuria; E87.5 Hyperkalemia; K52.9 Noninfective gastroenteritis and colitis, unspecified; I12.9 Hypertensive chronic kidney disease with stage 1 through stage 4 chronic kidney disease, or unspecified chronic kidney disease; E11.22 Type 2 diabetes mellitus with diabetic chronic kidney disease; I10 Essential (primary) hypertension; R32 Unspecified urinary incontinence; H54.7 Unspecified visual loss; F03.90 Unspecified dementia, unspecified severity, without behavioral disturbance, psychotic disturbance, mood disturbance, and anxiety; E11.9 Type 2 diabetes mellitus without complications; H91.90 Unspecified hearing loss, unspecified ear; E78.5 Hyperlipidemia, unspecified; M19.90 Unspecified osteoarthritis, unspecified site; Z88.5 Allergy status to narcotic agent; Z88.2 Allergy status to sulfonamides; E86.0 Dehydration; N18.2 Chronic kidney disease, stage 2 (mild); G30.9 Alzheimer's disease, unspecified; F02.80 Dementia in other diseases classified elsewhere, unspecified severity, without behavioral disturbance, psychotic disturbance, mood disturbance, and anxiety; Z51.5 Encounter for palliative care; Z79.4 Long term (current) use of insulin; Z79.899 Other long term (current) drug therapy; Z88.8 Allergy status to other drugs, medicaments and biological substances; Z88.1 Allergy status to other antibiotic agents; Z98.49 Cataract extraction status, unspecified eye; Z87.891 Personal history of nicotine dependence; Z86.73 Personal history of transient ischemic attack (TIA), and cerebral infarction without residual deficits
CPT/HCPCS: 36415; 71045; 76705; 80048; 81001; 82962; 83605; 85025; 87040; 87086; 87230; 93005; 94640; 97161-GP; 97165-GO; 99285; A9270-GY; J0610; J1650; J1815; J1815-GY; J2405; J3490; J7030

== ENCOUNTER 2019-05-05 12:17 | Emergency (ER) | payer MEDICARE, BC ==
--- NOTE | 2019-05-05 13:13 | EDM.PDOC ---
ED HPI GENERAL MEDICAL PROBLEM - General Chief Complaint: General Stated Complaint: FALL Time Seen by Provider: 05/05/19 13:08 Source of Information: Reports: Patient, Family History Limitations: Reports: Other (Dementia) - History of Present Illness INITIAL COMMENTS - FREE TEXT/NARRATIVE: Patient was found lying on the floor face down at [facility] this morning @0630 by her daughter. Patient states she was walking to the bathroom and lost her balance, does not remember what time this occurred and doesn't know if she lost consciousness. She denies headache or neck pain. Complains of mild right elbow pain, she has a skin tear at this site. Patient was diagnosed with a UTI on 04/30/19 and prescribed Macrobid (Urine Cx: >100k Klebsiella, sensitive to nitrofurantoin). - Related Data Allergies Allergy/AdvReac Type Severity Reaction Status Date / Time ciprofloxacin [From Cipro] Allergy Nausea and Verified 03/12/19 12:14 Vomiting ciprofloxacin HCl Allergy Nausea and Verified 03/12/19 12:14 [From Cipro] Vomiting hydrocodone Allergy Nausea and Verified 03/12/19 12:14 Vomiting hydrocortisone sod phosphate Allergy Nausea and Verified 03/12/19 12:14 [From Hydrocortone] Vomiting meperidine HCl [From Demerol] Allergy Nausea and Verified 03/12/19 12:14 Vomiting sulfamethoxazole Allergy Nausea and Verified 03/12/19 12:14 [From Septra] Vomiting trimethoprim [From Septra] Allergy Nausea and Verified 03/12/19 12:14 Vomiting Home Meds: Home Meds Simvastatin [Zocor] 10 mg PO BEDTIME 12/22/12 [History] Donepezil [Aricept] 10 mg PO BEDTIME 05/22/16 [History] levETIRAcetam [Keppra] 750 mg PO BID 05/17/18 [History] Sertraline [Zoloft] 25 mg PO BEDTIME 03/12/19 [History] Insulin Aspart [NovoLOG] 10 unit SQ TIDAC 30 Days #1 box 03/16/19 [Rx] Insulin Degludec [Tresiba Flextouch U-200] 24 unit SQ BEDTIME 30 Days #1 box 12/24 [Rx] Past Medical History HEENT History: Reports: Cataract, Hard of Hearing, Impaired Vision, Other (See Below) Other HEENT History: lesley hearing aids Cardiovascular History: Reports: Hypertension Genitourinary History: Reports: Urinary Incontinence 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 History: Musculoskeletal History: Reports: Arthritis Neurological History: Reports: CVA, Other (See Below) Other Neuro History: Is on donazepril Psychiatric History: Reports: Dementia Endocrine/Metabolic History: Reports: Diabetes, Type II, IDDM Oncologic (Cancer) History: Reports: Lymphoma - Infectious Disease History Infectious Disease History: Reports: Mumps - Past Surgical History HEENT Surgical History: Reports: Cataract Surgery Cardiovascular Surgical History: Reports: Other (See Below) Other Cardiovascular Surgeries/Procedures: loop implant GI Surgical History: Reports: Colonoscopy Social & Family History - Family History Family Medical History: Noncontributory Endocrine/Metabolic: Reports: Diabetes, type II - Caffeine Use Caffeine Use: Reports: Coffee Other Caffeine Use: every am - Alcohol Use Alcohol Use History: No ED ROS GENERAL - Review of Systems Review Of Systems: Comprehensive ROS is negative, except as noted in HPI. ED EXAM, GENERAL - Physical Exam Exam: See Below Exam Limited By: No Limitations General Appearance: Alert, WD/WN, No Apparent Distress Eye Exam: Bilateral Eye: EOMI, PERRL Ears: Normal External Exam Nose: Normal Inspection Throat/Mouth: No Airway Compromise Head: Atraumatic, Normocephalic Neck: Normal Inspection, Non-Tender Respiratory/Chest: No Respiratory Distress, Lungs Clear, Normal Breath Sounds Cardiovascular: Regular Rate, Rhythm, No Murmur Peripheral Pulses: 2+: Radial (R) GI/Abdominal: Normal Bowel Sounds, Soft, Tender (mild epigastric) Back Exam: Full Range of Motion. No: Vertebral Tenderness Extremities: Other (skin tear with mild tenderness right elbow) Neurological: Alert, No Motor/Sensory Deficits EKG INTERPRETATION EKG Date: 05/05/19 Time: 14:00 Rhythm: NSR Rate (Beats/Min): 67 [place]: Normal P-Wave: Present QRS: Normal ST-T: Normal Comparison: No Change (03/12/19) Course - Vital Signs Last Recorded V/S: Last Vital Signs Temp 36.4 C 05/05/19 13:20 Pulse 69 05/05/19 13:20 Resp 15 05/05/19 13:20 BP 175/73 H 05/05/19 13:20 Pulse Ox 97 05/05/19 13:20 - Orders/Labs/Meds Orders: Active Orders 24 hr Category Date Time Status EKG Documentation Completion [RC] ASDIRECTED Care 05/05/19 12:52 Active C-Spine [Cervical Spine wo Cont] [CT] Stat Exams 05/05/19 12:52 Taken Chest Abdomen Pelvis wo Cont [CT] Stat Exams 05/05/19 12:54 Taken Elbow 2V Rt [CR] Stat Exams 05/05/19 13:00 Taken Head wo Cont [CT] Stat Exams 05/05/19 12:52 Taken EKG 12 Lead [EK] Stat Ther 05/05/19 12:52 Ordered Labs: Laboratory Tests 05/05/19 05/05/19 05/05/19 Range/Units 13:47 13:47 13:47 WBC 9.8 (4.5-12.0) X10-3/uL RBC 4.69 (3.23-5.20) x10(6)uL Hgb 13.1 (11.5-15.5) g/dL Hct 40.3 (30.0-51.3) % MCV 85.9 (80-96) fL MCH 27.8 (27.7-33.6) pg MCHC 32.4 (32.2-35.4) g/dL RDW 13.9 (11.5-15.5) % Plt Count 218 (125-369) X10(3)uL MPV 9.0 (7.4-10.4) fL Neut % (Auto) 64.8 (46-82) % Lymph % (Auto) 24.4 (13-37) % [place] % (Auto) 6.5 (4-12) % Eos % (Auto) 3 (1.0-5.0) % Baso % (Auto) 2 (0-2) % Neut # (Auto) 6.4 (1.6-8.3) # Lymph # (Auto) 2.4 (0.6-5.0) # [place] # (Auto) 0.6 (0.0-1.3) # Eos # (Auto) 0.3 (0.0-0.8) # Baso # (Auto) 0.1 (0.0-0.2) # PT (9.0-11.1) sec INR (1.00-1.24) APTT (24.4-33.2) SECONDS Sodium 142 (135-145) mmol/L Potassium 4.1 D (3.5-5.3) mmol/L Chloride 104 D (100-110) mmol/L Carbon Dioxide 29 (21-32) mmol/L BUN 20 H (7-18) mg/dL Creatinine 1.4 H (0.55-1.02) mg/dL Est Cr Clr Drug Dosing TNP Estimated GFR (MDRD) 36 L (>60) BUN/Creatinine Ratio 14.3 (9-20) Glucose 223 H D (80-116) mg/dL Calcium 8.7 (8.6-10.2) mg/dL Total Bilirubin 0.4 (0.1-1.3) mg/dL AST 15 D (5-25) IU/L ALT 14 (12-36) U/L Alkaline Phosphatase 97 (56-112) IU/L Troponin I 10.5 (4.0-60.3) pg/mL Total Protein 6.7 (6.0-8.0) g/dL Albumin 3.2 (3.2-4.6) g/dL Globulin 3.5 g/dL Albumin/Globulin Ratio 0.9 // Range/Units 13:47 WBC (4.5-12.0) X10-3/uL RBC (3.23-5.20) x10(6)uL Hgb (11.5-15.5) g/dL Hct (30.0-51.3) % MCV (80-96) fL MCH (27.7-33.6) pg MCHC (32.2-35.4) g/dL RDW (11.5-15.5) % Plt Count (125-369) X10(3)uL MPV (7.4-10.4) fL Neut % (Auto) (46-82) % Lymph % (Auto) (13-37) % [place] % (Auto) (4-12) % Eos % (Auto) (1.0-5.0) % Baso % (Auto) (0-2) % Neut # (Auto) (1.6-8.3) # Lymph # (Auto) (0.6-5.0) # [place] # (Auto) (0.0-1.3) # Eos # (Auto) (0.0-0.8) # Baso # (Auto) (0.0-0.2) # PT 9.5 (9.0-11.1) sec INR 0.98 L (1.00-1.24) APTT 23.5 L (24.4-33.2) SECONDS Sodium (135-145) mmol/L Potassium (3.5-5.3) mmol/L Chloride (100-110) mmol/L Carbon Dioxide (21-32) mmol/L BUN (7-18) mg/dL Creatinine (0.55-1.02) mg/dL Est Cr Clr Drug Dosing Estimated GFR (MDRD) (>60) BUN/Creatinine Ratio (9-20) Glucose (80-116) mg/dL Calcium (8.6-10.2) mg/dL Total Bilirubin (0.1-1.3) mg/dL AST (5-25) IU/L ALT (12-36) U/L Alkaline Phosphatase (56-112) IU/L Troponin I (4.0-60.3) pg/mL Total Protein (6.0-8.0) g/dL Albumin (3.2-4.6) g/dL Globulin g/dL Albumin/Globulin Ratio - Radiology Interpretation Free Text/Narrative:: Right elbow xray: no fracture or dislocation. (ED provider interpretation) CT Head w/o contrast: There is a 5 mm subdural hematoma along the right frontal convexity and a 5 mm subdural hematoma along the left frontal convexity, consistent with recurrent subacute subdural hematomas. No significant mass effect on the underlying parenchyma. Small chronic lacunar infarct in the right basal ganglia. Small chronic infarct in the right precentral gyrus. There is a hematoma along the left medial periorbital soft tissues. (LARRY, Dr. Quezada) Per Dr. Quezada, there is no acute intracranial hemorrhage. CT C-spine w/o contrast: No evidence of acute osseous injury. Calcifications along the cruciform ligament posterior to the dens producing a so-called crown sign usually result of deposition of CPPD or hyroxyapatite crystals. (LARRY, Dr. Quezada) CT Chest/Abd/Pelvis w/o contrast: No osseous fracture. Hepatomegaly. Cholelithiasis. 8 mm spiculated BRIANDA nodule, suspicious for malignancy. No evidence of traumatic injury to the chest, abdomen, or pelvis - Re-Assessments/Exams Free Text/Narrative Re-Assessment/Exam: 05/05/19 14:57 Per family, patient has frequent falls. It does not appear that she has an acute intracranial hemorrhage from today's falls. But most likely had recurrence of the subdural hematomas from a more remote fall. Patient is asymptomatic at this time, so is stable for discharge. She is discharged to the care of her daughters, who will follow up with her primary physician next week to discuss possible alf placement. Departure - Departure Time of Disposition: 14:46 Disposition: Home, Self-Care 01 Condition: Good Clinical Impression: Subacute subdural hematoma, Fall in elderly patient Skin tear of elbow without complication Qualifiers: Encounter type: initial encounter Laterality: right Qualified Code(s): S51.011A - Laceration without foreign body of right elbow, initial encounter - Discharge Information *PRESCRIPTION DRUG MONITORING PROGRAM REVIEWED*: No *COPY OF PRESCRIPTION DRUG MONITORING REPORT IN PATIENT ELISABETH: Not Applicable Instructions: Fall Prevention in the Home, Adult, [id number], Subdural Hematoma, Head Injury, Adult, [id number], Skin Tear Care Referrals: Jayce Baig MD [Primary Care Provider] - 2 Days Forms: ED Department Discharge Additional Instructions: Follow up with your primary physician in 2-3 days. Return to the ER if symptoms worsen. Sepsis Event Note - Focused Exam Vital Signs: Vital Signs Temp Pulse Resp BP Pulse Ox 05/05/19 13:20 36.4 C 69 15 175/73 H 97 Date Exam was Performed: 05/05/19 Time Exam was Performed: 14:56 - My Orders Last 24 Hours: My Active Orders 05/05/19 12:52 EKG Documentation Completion [RC] ASDIRECTED C-Spine [Cervical Spine wo Cont] [CT] Stat Head wo Cont [CT] Stat EKG 12 Lead [EK] Stat 05/05/19 12:54 Chest Abdomen Pelvis wo Cont [CT] Stat 05/05/19 13:00 Elbow 2V Rt [CR] Stat - Assessment/Plan Last 24 Hours: My Active Orders 05/05/19 12:52 EKG Documentation Completion [RC] ASDIRECTED C-Spine [Cervical Spine wo Cont] [CT] Stat Head wo Cont [CT] Stat EKG 12 Lead [EK] Stat 05/05/19 12:54 Chest Abdomen Pelvis wo Cont [CT] Stat 05/05/19 13:00 Elbow 2V Rt [CR] Stat
[2019-05-05 13:35] VITALS: BP 175/73; PULSE 69
--- NOTE | 2019-05-07 12:08 | CR ---
INDICATION: Injury. RIGHT ELBOW: Frontal and lateral views of the right forearm were obtained - no comparisons. No evidence of joint effusion was identified. A definite fracture or dislocation was not seen. There are some mild degenerative changes at the medial elbow joint compartment. Overall bone density appeared to be fairly normal. There is some swelling posteriorly at the olecranon bursa raising question of a mild degree of bursitis in that area or possibly post-injury change. IMPRESSION: No definite acute fracture or dislocation. [facility]
== END 2019-05-05 14:58 | disposition home or self-care (01) ==
LOC: FB.ED 12:17
DX: S06.5X9A Traumatic subdural hemorrhage with loss of consciousness of unspecified duration, initial encounter (principal); S51.011A Laceration without foreign body of right elbow, initial encounter; F03.90 Unspecified dementia, unspecified severity, without behavioral disturbance, psychotic disturbance, mood disturbance, and anxiety; Z86.73 Personal history of transient ischemic attack (TIA), and cerebral infarction without residual deficits; I10 Essential (primary) hypertension; Z88.5 Allergy status to narcotic agent; Z88.2 Allergy status to sulfonamides; Z88.1 Allergy status to other antibiotic agents; E11.9 Type 2 diabetes mellitus without complications; Z79.4 Long term (current) use of insulin; Z79.899 Other long term (current) drug therapy; W01.0XXA Fall on same level from slipping, tripping and stumbling without subsequent striking against object, initial encounter; Y92.121 Bathroom in nursing home as the place of occurrence of the external cause
CPT/HCPCS: 36415; 70450; 71250; 72125; 73070-RT; 74176; 80053; 84484; 85025; 85610; 85730; 93005; 99284-25

== ENCOUNTER 2019-12-09 10:00 | Emergency (ER) | payer MEDICARE, BC ==
[2019-12-09] MEDS ORDERED: traMADol 50 MG Tab PO ONE (10:54)
[2019-12-09 11:17] VITALS: BP 156/75
--- NOTE | 2019-12-09 11:22 | EDM.PDOC ---
ED HPI GENERAL MEDICAL PROBLEM - General Chief Complaint: Lower Extremity Injury/Pain Stated Complaint: right leg swelling and pain Time Seen by Provider: 12/09/19 10:15 Source of Information: Reports: Patient History Limitations: Reports: No Limitations - History of Present Illness INITIAL COMMENTS - FREE TEXT/NARRATIVE: brought in by daughter pt is in dementia unit had fall last week and had abrasion on the left knee from the fall , being treated with antibiotics ( keflex) was not ambulating as usual yesterday started complaining of pain in the left leg this am would not let anyone touch the leg due to pain daughter brought her in to the ER noted significant swelling of left leg that was not there yesterday , leg is painful , warm to touch Onset: Gradual Onset Date: 12/08/19 Duration: Day(s): (2), Getting Worse Location: Reports: Lower Extremity, Left Quality: Reports: Ache, Dull, Pressure Severity: Severe Improves with: Reports: None, Immobilization Worsens with: Reports: Movement Associated Symptoms: Reports: Loss of Appetite. Denies: Fever/Chills, Malaise Left Lower Leg Pain Score (Numeric/FACES): 9 - Related Data Allergies Allergy/AdvReac Type Severity Reaction Status Date / Time ciprofloxacin [From Cipro] Allergy Nausea and Verified 12/09/19 11:11 Vomiting ciprofloxacin HCl Allergy Nausea and Verified 12/09/19 11:11 [From Cipro] Vomiting hydrocodone Allergy Nausea and Verified 12/09/19 11:11 Vomiting hydrocortisone sod phosphate Allergy Nausea and Verified 12/09/19 11:11 [From Hydrocortone] Vomiting meperidine HCl [From Demerol] Allergy Nausea and Verified 12/09/19 11:11 Vomiting sulfamethoxazole Allergy Nausea and Verified 12/09/19 11:11 [From Septra] Vomiting trimethoprim [From Septra] Allergy Nausea and Verified 12/09/19 11:11 Vomiting Home Meds: Home Meds Donepezil [Aricept] 10 mg PO BEDTIME 05/22/16 [History] levETIRAcetam [Keppra] 750 mg PO BID 05/17/18 [History] Acetaminophen [Tylenol Extra Strength] 500 mg PO Q8H 12/09/19 [History] Cranberry 500 mg PO BID 12/09/19 [History] Insulin Aspart [NovoLOG] 8 unit SQ TIDAC 12/09/19 [History] Insulin Degludec [Tresiba Flextouch U-200] 36 unit SQ BEDTIME 12/09/19 [History] L.acidoph,Paracasei, B.lactis [Probiotic] 4 mg PO DAILY 12/09/19 [History] Memantine [Namenda] 5 mg PO BID 12/09/19 [History] Metoprolol Succinate [Toprol XL] 25 mg PO DAILY 12/09/19 [History] Mirtazapine 30 mg PO BEDTIME 12/09/19 [History] cephALEXin [Cephalexin] 250 mg PO 20 12/09/19 [History] cephALEXin [Keflex] 500 mg PO 08,14,12/09/19 [History] Past Medical History HEENT History: Reports: Cataract, Hard of Hearing, Impaired Vision, Other (See Below) Other HEENT History: lesley hearing aids Cardiovascular History: Reports: Hypertension Genitourinary History: Reports: Urinary Incontinence 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 History: Musculoskeletal History: Reports: Arthritis Neurological History: Reports: CVA, Other (See Below) Other Neuro History: Is on donazepril Psychiatric History: Reports: Dementia Endocrine/Metabolic History: Reports: Diabetes, Type II, IDDM Oncologic (Cancer) History: Reports: Lymphoma - Infectious Disease History Infectious Disease History: Reports: Mumps - Past Surgical History HEENT Surgical History: Reports: Cataract Surgery Cardiovascular Surgical History: Reports: Other (See Below) Other Cardiovascular Surgeries/Procedures: loop implant GI Surgical History: Reports: Colonoscopy Social & Family History - Family History Family Medical History: Noncontributory Endocrine/Metabolic: Reports: Diabetes, type II - Caffeine Use Caffeine Use: Reports: Coffee Other Caffeine Use: every am Review of Systems - Review of Systems Review Of Systems: Unable To Obtain Reason Not Obtained: pt has dementia ED EXAM, GENERAL - Physical Exam Exam: See Below Exam Limited By: Physical Impairment General Appearance: Alert, No Apparent Distress Eye Exam: Bilateral Eye: EOMI Ears: Normal External Exam Ear Exam: Bilateral Ear: TM normal Nose: Normal Mucosa Throat/Mouth: Normal Oropharynx Head: Atraumatic Neck: Supple, Non-Tender Respiratory/Chest: Lungs Clear, Normal Breath Sounds Cardiovascular: Regular Rate, Rhythm GI/Abdominal: Soft, Non-Tender Back Exam: Decreased Range of Motion Extremities: Pedal Edema, Limited Range of Motion, Other (Swelling of left leg from the knee , tender to palpation ) Neurological: Slow to Respond, Other (Abnormal cognition , abnormal gait) Psychiatric: Flat Affect Skin Exam: Warm, Dry, Intact Front/Back Body Diagram: 1 - Swelling tender and warm to touch Course - Vital Signs Last Recorded V/S: Last Vital Signs Temp 36.9 C 12/09/19 14:12 Pulse 78 12/09/19 14:12 Resp 19 12/09/19 14:12 BP 156/75 H 12/09/19 14:12 Pulse Ox 98 12/09/19 14:12 - Orders/Labs/Meds Orders: Active Orders 24 hr Category Date Time Status VL Duplex Lwr Ext Veins Ltd Lt [US] Stat Exams 12/09/19 11:24 Ordered VL Duplex Lwr Ext Veins Ltd Rt [US] Stat Exams 12/09/19 10:52 Stop Req CORONAVIRUS COVID-19, [place] Stat Lab 12/09/19 12:13 Ordered Labs: Laboratory Tests 12/09/19 12/09/19 12/09/19 Range/Units 12:20 12:20 12:20 WBC 12.0 (4.5-12.0) X10-3/uL RBC 4.68 (3.23-5.20) x10(6)uL Hgb 13.0 (11.5-15.5) g/dL Hct 39.8 (30.0-51.3) % MCV 85.0 (80-96) fL MCH 27.7 (27.7-33.6) pg MCHC 32.6 (32.2-35.4) g/dL RDW 14.0 (11.5-15.5) % Plt Count 244 (125-369) X10(3)uL MPV 8.1 (7.4-10.4) fL Neut % (Auto) 73.8 (46-82) % Lymph % (Auto) 17.9 (13-37) % [place] % (Auto) 6.9 (4-12) % Eos % (Auto) 1 (1.0-5.0) % Baso % (Auto) 0 (0-2) % Neut # (Auto) 9.0 H (1.6-8.3) # Lymph # (Auto) 2.1 (0.6-5.0) # [place] # (Auto) 0.8 (0.0-1.3) # Eos # (Auto) 0.1 (0.0-0.8) # Baso # (Auto) 0.0 (0.0-0.2) # PT 10.7 (9.0-11.1) sec INR 0.99 L (1.00-1.24) Sodium 141 (135-145) mmol/L Potassium 4.2 (3.5-5.3) mmol/L Chloride 103 (100-110) mmol/L Carbon Dioxide 31 (21-32) mmol/L BUN 23 H (7-18) mg/dL Creatinine 1.6 H (0.55-1.02) mg/dL Est Cr Clr Drug Dosing TNP Estimated GFR (MDRD) 30 L (>60) BUN/Creatinine Ratio 14.4 (9-20) Glucose 154 H (80-116) mg/dL Calcium 8.5 L (8.6-10.2) mg/dL C-Reactive Protein (0.5-0.9) mg/dL 12/09/19 Range/Units 12:20 WBC (4.5-12.0) X10-3/uL RBC (3.23-5.20) x10(6)uL Hgb (11.5-15.5) g/dL Hct (30.0-51.3) % MCV (80-96) fL MCH (27.7-33.6) pg MCHC (32.2-35.4) g/dL RDW (11.5-15.5) % Plt Count (125-369) X10(3)uL MPV (7.4-10.4) fL Neut % (Auto) (46-82) % Lymph % (Auto) (13-37) % [place] % (Auto) (4-12) % Eos % (Auto) (1.0-5.0) % Baso % (Auto) (0-2) % Neut # (Auto) (1.6-8.3) # Lymph # (Auto) (0.6-5.0) # [place] # (Auto) (0.0-1.3) # Eos # (Auto) (0.0-0.8) # Baso # (Auto) (0.0-0.2) # PT (9.0-11.1) sec INR (1.00-1.24) Sodium (135-145) mmol/L Potassium (3.5-5.3) mmol/L Chloride (100-110) mmol/L Carbon Dioxide (21-32) mmol/L BUN (7-18) mg/dL Creatinine (0.55-1.02) mg/dL Est Cr Clr Drug Dosing Estimated GFR (MDRD) (>60) BUN/Creatinine Ratio (9-20) Glucose (80-116) mg/dL Calcium (8.6-10.2) mg/dL C-Reactive Protein 5.1 H* (0.5-0.9) mg/dL Meds: Medications Discontinued Medications Generic Name Dose Route Start Last Admin Trade Name Bob PRN Reason Stop Dose Admin Sodium Chloride 1,000 mls @ 75 mls/hr 12/09/19 12:30 12/09/19 13:00 Normal Saline IV 75 mls/hr ASDIRECTED JOSE LUIS Administration Tramadol HCl 50 mg 12/09/19 10:54 12/09/19 11:18 Ultram PO 12/09/19 10:55 50 mg ONETIME ONE Administration - Re-Assessments/Exams Free Text/Narrative Re-Assessment/Exam: 12/09/19 12:10 Venous doppler not available today in the hospital Call made to [facility] ( ultrasound available ). Discussed possibility of pt being admitted on lovenox and getting ultrasound done tomorrow but family opted to transfer pt to [facility] in [place] instead for further management) Free Text/Narrative Re-Assessment/Exam: 12/09/19 13:20 Called and discussed pt with [facility], the agreed to accept pt on transfer Currently pt is stable Departure - Departure Time of Disposition: 14:12 Disposition: DC/Tfer to Other 70 Condition: Fair Clinical Impression: Pain and swelling of left lower extremity, Cellulitis of knee, left, Diabetes mellitus type 2 HTN (hypertension) Qualifiers: Hypertension type: essential hypertension Qualified Code(s): I10 - Essential (primary) hypertension - Discharge Information *PRESCRIPTION DRUG MONITORING PROGRAM REVIEWED*: Not Applicable *COPY OF PRESCRIPTION DRUG MONITORING REPORT IN PATIENT ELISABETH: Not Applicable Referrals: Jayce Baig MD [Primary Care Provider] - Forms: ED Department Discharge Sepsis Event Note (ED) - Focused Exam Vital Signs: Vital Signs Temp Pulse Resp BP Pulse Ox 12/09/19 14:12 36.9 C 78 19 156/75 H 98 12/09/19 13:59 36.9 C 68 18 148/74 H 95 12/09/19 10:00 36.9 C 82 19 156/75 H 98 - My Orders Last 24 Hours: My Active Orders 12/09/19 10:52 VL Duplex Lwr Ext Veins Ltd Rt [US] Stat 12/09/19 11:24 VL Duplex Lwr Ext Veins Ltd Lt [US] Stat 12/09/19 12:13 CORONAVIRUS COVID-19, [place] Stat - Assessment/Plan Last 24 Hours: My Active Orders 12/09/19 10:52 VL Duplex Lwr Ext Veins Ltd Rt [US] Stat 12/09/19 11:24 VL Duplex Lwr Ext Veins Ltd Lt [US] Stat 12/09/19 12:13 CORONAVIRUS COVID-19, [place] Stat
[2019-12-09] MEDS ORDERED: Sodium Chloride 0.9% 1,000 ML IV SCH (12:30)
[2019-12-09 14:20] VITALS: PULSE 78
== END 2019-12-09 13:59 | disposition other institution (70) ==
LOC: FB.ED 10:00
DX: L03.116 Cellulitis of left lower limb (principal); E11.9 Type 2 diabetes mellitus without complications; I10 Essential (primary) hypertension; F03.90 Unspecified dementia, unspecified severity, without behavioral disturbance, psychotic disturbance, mood disturbance, and anxiety; Z88.1 Allergy status to other antibiotic agents; Z88.5 Allergy status to narcotic agent; Z88.8 Allergy status to other drugs, medicaments and biological substances; Z88.2 Allergy status to sulfonamides; Z79.899 Other long term (current) drug therapy; Z79.4 Long term (current) use of insulin
CPT/HCPCS: 36415; 80048; 85025; 85610; 86140; 96360; 99284-25; A9270-GY; J7030